=== PATIENT | female | born 1935 | race Two or more races ===

== ENCOUNTER 2019-05-29 03:21 | Inpatient (IN) | payer MEDICARE, OTHER ==
[~2019-05-29] VITALS: Ht 147.3 cm; Wt 58.5 kg
[2019-05-29 03:35] VITALS: BP 153/62
--- NOTE | 2019-05-29 03:35 | NUR ---
ED Nurse Note: Patient brought in by RA from [place] due to SOB x 30mins ago. Has history of CHF, ARF with hypoxia, Nstemi. Pt is on BIPAP.
[2019-05-29] MEDS ORDERED: Nitroglycerin Subl 0.4mg tab SL ONE (03:40)
--- NOTE | 2019-05-29 03:46 | NUR ---
ED Nurse Note: IV line established. Blood collected and sent to lab.
[2019-05-29] MEDS ORDERED: ACETAMINOPHEN325 M1 ORAL (03:56)
[2019-05-29] MEDS ORDERED: METOPROLOL SUCC25 MG ORAL (03:56)
[2019-05-29] MEDS ORDERED: CALAZIME (03:56)
[2019-05-29] MEDS ORDERED: BISACODYL10 M1 RC (03:56)
[2019-05-29] MEDS ORDERED: LISINOPRIL5 MG ORAL (03:56)
[2019-05-29] MEDS ORDERED: RENA-VITE RX T1 EAC1 PO (03:56)
[2019-05-29] MEDS ORDERED: AMIODARONE HCL100 MG ORAL (03:56)
[2019-05-29] MEDS ORDERED: ASPIRIN325 MG ORAL (03:56)
[2019-05-29] MEDS ORDERED: AMBIEN5 MG ORAL (03:56)
[2019-05-29] MEDS ORDERED: ZOFRAN ODT8 MG ORAL (03:56)
[2019-05-29] MEDS ORDERED: MINERAL OIL EN133 ML RC (03:56)
[2019-05-29] MEDS ORDERED: HUMALOG100 UNIT/1 SUBQ (03:56)
[2019-05-29] MEDS ORDERED: NEXIUM40 MG ORAL (03:56)
[2019-05-29] MEDS ORDERED: PLAVIX75 MG ORAL (03:56)
[2019-05-29] MEDS ORDERED: VITAMIN A AND113 GM TP (03:56)
[2019-05-29] MEDS ORDERED: MOM30 ML ORAL (03:56)
[2019-05-29] MEDS ORDERED: NITRO0.4 SL (03:56)
[2019-05-29] MEDS ORDERED: BETADINE3780 ML TP (03:56)
[2019-05-29 04:11] LABS: BASOPHILS % (AUTO) 1.5 % (0.0-2.0); EOSINOPHILS % (AUTO) 0.7 % (0.0-3.0); HEMATOCRIT 45.8 % (37.0-47.0); HEMOGLOBIN 14.4 G/DL (12.0-16.0); LYMPHOCYTES % (AUTO) 12.6 % (20.0-45.0); MEAN CORPUSCULAR VOLUME 98 FL (80-99); MONOCYTES % (AUTO) 9.3 % (1.0-10.0); NEUTROPHILS % (AUTO) 75.9 % (45.0-75.0); PLATELET COUNT 310 K/UL (150-450); RED BLOOD COUNT 4.69 M/UL (4.20-5.40); RED CELL DISTRIBUTION WIDTH 18.8 % (11.6-14.8); WHITE BLOOD COUNT 17.8 K/UL (4.8-10.8)
--- NOTE | 2019-05-29 04:35 | NUR ---
ED Nurse Note: Xray done at bedside.
[2019-05-29 04:44] LABS: ALANINE AMINOTRANSFERASE 14 U/L (12-78); ALBUMIN/GLOBULIN RATIO 0.6 (1.0-2.7); ALKALINE PHOSPHATASE 157 U/L (46-116); ANION GAP 13 mmol/L (5-15); ASPARTATE AMINO TRANSFERASE 104 U/L (15-37); BILIRUBIN,TOTAL 1.4 MG/DL (0.2-1.0); BLOOD UREA NITROGEN 20 mg/dL (7-18); CALCIUM 8.3 MG/DL (8.5-10.1); CARBON DIOXIDE 24 MMOL/L (21-32); CHLORIDE 102 MMOL/L (98-107); CKMB 0.7 NG/ML (0.0-3.6); CREATINE KINASE 223 U/L (26-308); CREATININE 2.2 MG/DL (0.55-1.30); PHOSPHORUS 3.2 MG/DL (2.5-4.9); SODIUM 139 MMOL/L (136-145)
--- NOTE | 2019-05-29 04:48 | Emergency Room Report ---
History of Present Illness General Chief Complaint: Dyspnea/Respdistress Source: Family Member, Medical Record Present Illness HPI Patient is a 83-year-old female presented after increased shortness of breath from nursing facility. Patient a prior history of end-stage renal disease she is normally dialyzed Tuesday. Patient was sent in from [facility]. She is noted to have severe difficulty breathing and was started on CPAP by EMS during transport. Patient was noted to be febrile. She had not been vomiting. Onset of symptoms approximate 1 hour prior to arrival.Patient reportedly was dialyzed on Tuesday.History limited by patient's acuity.Patient reportedly had a recent stent placement at [facility] as well as AICD placement approximately a week ago. Patient currently is on amiodarone. She had been on Plavix due to recent procedure Allergies: Coded Allergies: No Known Allergies (Unverified , 05/29/19) Patient History Past Medical History: see triage record Past Surgical History: pacemaker Reviewed Nursing Documentation: PMH: Agreed; PSxH: Agreed Nursing Documentation-PMH Past Medical History: No History, Except For Review of Systems All Other Systems: limited - by poor historian Physical Exam Vital Signs Date Time Temp Pulse Resp B/P (MAP) Pulse Ox O2 Delivery O2 Flow Rate FiO2 05/29/19 03:23 99.0 76 40 164/92 (116) 94 Bi-pap 05/29/19 03:59 60 Sp02 EP Interpretation: reviewed, normal General Appearance: normal inspection, alert, Chronically Ill Head: atraumatic ENT: normal ENT inspection, hearing grossly normal, normal voice Neck: normal inspection, supple, no bony tend, limited range of motion, other Respiratory: no retraction, respiratory distress, accessory muscle use, crackles Cardiovascular #1: regular rate, rhythm, JVD, other - dialysis access to left side of chest, edema Gastrointestinal: normal inspection, normal bowel sounds, non tender, soft, no guarding, no hernia Genitourinary: no CVA tenderness Musculoskeletal: normal inspection, back normal, normal range of motion Neurologic: normal inspection, alert, responsive, municipal court judge III-XII nml as tested, speech normal Psychiatric: normal inspection, judgement/insight normal, mood/affect normal Skin: normal color Medical Decision Making Diagnostic Impression: Primary Impression: Respiratory distress Additional Impressions: Pulmonary edema Bilateral pulmonary infiltrates on CXR AICD (automatic cardioverter/defibrillator) present CAD (coronary artery disease) ER Course Presented for shortness of breath. Differential included but was not limited to anemia, pneumonia, pneumothorax, myocardial infarction, pericardial effusion , congestive heart failure, acidosis. Because of complexity of patient's case laboratory tests and imaging studies were ordered. Patient had previous history of renal failure and is currently on dialysis. Patient was given IV antibiotics after blood cultures were obtained due to bilateral lung infiltrates these appear to be pulmonary edema. CXR 1 view interpreted by me showed normal cardiac size with bilateral basilar infiltrate. She was given IV antibiotics. IV fluids were not bolused due to fluid overload. Patient started on BiPAP. She was noted to have improvement in lactic acid and respiratory difficulty on reassessment. Dr. Ashley Watson was contacted for inpatient management due to covering physician for her care home. Labs Test 05/29/19 03:35 05/29/19 04:00 Arterial Blood pH 7.437 (7.350-7.450) Arterial Blood Partial Pressure CO2 33.9 mmHg (35.0-45.0) Arterial Blood Partial Pressure O2 72.3 mmHg (75.0-100.0) Arterial Blood HCO3 22.4 mmol/L (22.0-26.0) Arterial Blood Oxygen Saturation 94.4 % (95-100) Arterial Blood Base Excess -1.2 (-2-2) Peter Test Positive White Blood Count 17.8 K/UL (4.8-10.8) Red Blood Count 4.69 M/UL (4.20-5.40) Hemoglobin 14.4 G/DL (12.0-16.0) Hematocrit 45.8 % (37.0-47.0) Mean Corpuscular Volume 98 FL (80-99) Mean Corpuscular Hemoglobin 30.6 PG (27.0-31.0) Mean Corpuscular Hemoglobin Concent 31.4 G/DL (32.0-36.0) Red Cell Distribution Width 18.8 % (11.6-14.8) Platelet Count 310 K/UL (150-450) Mean Platelet Volume 6.1 FL (6.5-10.1) Neutrophils (%) (Auto) 75.9 % (45.0-75.0) Lymphocytes (%) (Auto) 12.6 % (20.0-45.0) Monocytes (%) (Auto) 9.3 % (1.0-10.0) Eosinophils (%) (Auto) 0.7 % (0.0-3.0) Basophils (%) (Auto) 1.5 % (0.0-2.0) Sodium Level 139 MMOL/L (136-145) Potassium Level 6.0 MMOL/L (3.5-5.1) Chloride Level 102 MMOL/L (98-107) Carbon Dioxide Level 24 MMOL/L (21-32) Anion Gap 13 mmol/L (5-15) Blood Urea Nitrogen 20 mg/dL (7-18) Creatinine 2.2 MG/DL (0.55-1.30) Estimat Glomerular Filtration Rate mL/min (>60) Glucose Level 190 MG/DL (74-106) Lactic Acid Level 4.10 mmol/L (0.4-2.0) Calcium Level 8.3 MG/DL (8.5-10.1) Phosphorus Level 3.2 MG/DL (2.5-4.9) Magnesium Level 2.3 MG/DL (1.8-2.4) Total Bilirubin 1.4 MG/DL (0.2-1.0) Direct Bilirubin 0.2 MG/DL (0.0-0.3) Aspartate Amino Transf (AST/SGOT) 104 U/L (15-37) Alanine Aminotransferase (ALT/SGPT) 14 U/L (12-78) Alkaline Phosphatase 157 U/L (46-116) Total Creatine Kinase 223 U/L (26-308) Creatine Kinase MB 0.7 NG/ML (0.0-3.6) Creatine Kinase MB Relative Index 0.3 Troponin I 0.006 ng/mL (0.000-0.056) Pro-B-Type Natriuretic Peptide > 44096 pg/mL (0-125) Total Protein 8.2 G/DL (6.4-8.2) Albumin 3.0 G/DL (3.4-5.0) Globulin 5.2 g/dL Albumin/Globulin Ratio 0.6 (1.0-2.7) EKG Diagnostic Results Rate: normal - 60 Rhythm: other - paced Rhythm Strip Diag. Results EP Interpretation: yes Rhythm: NSR, no PVC's, no ectopy Last Vital Signs Date Time Temp Pulse Resp B/P (MAP) Pulse Ox O2 Delivery O2 Flow Rate FiO2 05/29/19 03:59 94 18 97 Facial 60 05/29/19 03:35 99.0 153/62 Status: improved Disposition: ADMITTED INPATIENT Condition: Serious Referrals: NON PHYSICIAN (PCP) Landry Ayala MD May 29, 2019 04:48
[2019-05-29 04:57] LABS: BILIRUBIN,DIRECT 0.2 MG/DL (0.0-0.3)
[2019-05-29] MEDS ORDERED: Piperacillin/Tazobactam 3.375 GM in NS 110 ML IVPB ONE (05:00)
--- NOTE | 2019-05-29 05:30 | NUR ---
ED Nurse Note: Lactic reflex sent to lab.
[2019-05-29 06:11] VITALS: BP 127/87
--- NOTE | 2019-05-29 06:29 | NUR ---
NURSE NOTES: received report from Saida GLASS from ER. will wait for pt to come to SDU unit.
--- NOTE | 2019-05-29 06:29 | NUR ---
ED Nurse Note: Report given to Aleta GLASS.
--- NOTE | 2019-05-29 06:42 | NUR ---
TRANSFER TO FLOOR: Patient transferred to SDU as ordered, accompanied by 2 RNs. Report given to Aleta GLASS. Pt alert and oriented, verbally reponsive. No SOB at this time. Afebrile. IV line on left forearm 22g patent and intact. Belongings list done. Med recon done. Swabs are sent to lab. VSS. Family member aware of the transfer.
--- NOTE | 2019-05-29 06:43 | NUR ---
NURSE NOTES: received pt from Saida GLASS., pt is on Bipap 12/5 Fio2 50%. network technology instructor on, bed at the lowest position, alarmed, and locked. pt alert and oriented x3. follow command. ABD soft without distend. VS: HR 68 O2sat 100% Temperature 98.6 RR 27 BP 152/60. pt denies SOB, Bilateral heels noted DTI, Left lateral foot DTI noted, skin intact, multiple bruises noted. pacemaker on right upper chest noted, and perma cath on left upper chest intact and clean. IV peripheral on FA 22 G intact, clean, and patent. pt states no pain. call light within reach. will continue to monitor pt with plan of care.
--- NOTE | 2019-05-29 07:30 | NUR ---
NURSE NOTES: RECEIVED BED SIDE REPORT FROM ROSALINDA PERFECT BINDER SETTER OF NOC SHIFT .RECEIVED PT WITH HOB ELEVATED 45 DEGREE AWAKE AND ALERT NAURUAN SPEAKING ONLY ABLE TO FOLLOW SIMPLE COMMANDS.PT USING BIPAP 15/5 ,FIO2 @ 50%.FULL BODY ASSESSMENT DONE ,BILAT HEELS WITH DTI AND REDNESS ON SACRAL AREA.PT REPOSITIONED IN BED Q 2HRS TO PROVIDE COMFORT AND TO PREVENT FURTHER SKIN BRAKE DOWN.PLACED A TELEPHONE CALL TO DR CONROY ON HIS EMERGENCY VOICE MAIL AND LEFT A MESSAGE REGARDING NEW PT AND WE NEED ADMISSION ORDERS.WILL CONT TO MONITOR.
--- NOTE | 2019-05-29 07:53 | NUR ---
HAND-OFF: Report given to Jose RN to get admission orders.
[2019-05-29 08:00] VITALS: BP 145/65
[2019-05-29] MEDS ORDERED: Zolpidem 5mg tab ORAL PRN (09:15)
[2019-05-29] MEDS ORDERED: Milk of Magnesia 30ml Ud ORAL PRN (09:15)
[2019-05-29] MEDS ORDERED: Nitroglycerin Subl 0.4mg tab SL PRN (09:15)
[2019-05-29] MEDS ORDERED: Ondansetron ODT 8mg tab ORAL PRN (09:15)
[2019-05-29] MEDS ORDERED: Lisinopril 2.5mg tab ORAL SCH (09:15)
[2019-05-29] MEDS ORDERED: Fleet's Mineral Oil Enema RECTAL PRN (09:15)
--- NOTE | 2019-05-29 10:10 | NUR ---
*-* NO ISNURANCE INFORMATION IN THE BAR UNABLE TO SEND CLINICALS OR REVIEWS *-*
[2019-05-29] MEDS ORDERED: Vancomycin 1 GM in NS 275 ML IVPB SCH (10:30)
[2019-05-29] MEDS ORDERED: Vitamin B Complex Tab ORAL ONE (10:30)
[2019-05-29] MEDS: Metoprolol Succinate XL 25mg tab ORAL SCH (11:08)
[2019-05-29] MEDS: Amiodarone 200mg tab ORAL SCH ×2 (11:08→18:28)
--- NOTE | 2019-05-29 11:11 | NUR ---
*-* INSURANCE *-* ALL AVAILABLE CLINICALS HAVE BEEN FAXED TO [facility] F: [phone]
[2019-05-29] MEDS: NovoLOG Insulin Flexpen SUBQ SCH ×3 (11:30→21:00)
[2019-05-29] MEDS: Betadine 4oz Bottle TOPIC SCH (11:32)
[2019-05-29] MEDS: Vitamin A&D Oint Tube TOPIC SCH (11:32)
--- NOTE | 2019-05-29 11:37 | Cardiac Electrophysiology PN ---
Subjective Subjective [id number] Objective Last 24 Hour Vital Signs Date Time Temp Pulse Resp B/P (MAP) Pulse Ox O2 Delivery O2 Flow Rate FiO2 05/29/19 11:08 60 145/65 05/29/19 11:07 145/65 05/29/19 11:00 60 21 99 Facial 30 05/29/19 09:03 60 18 99 Facial 40 05/29/19 08:00 97.9 132 33 145/65 (91) 100 05/29/19 08:00 60 05/29/19 07:20 68 18 98 Facial 50 05/29/19 06:30 98.7 78 19 127/87 99 50 05/29/19 06:11 98.7 78 19 127/87 99 50 05/29/19 04:47 88 21 99 Facial 50 05/29/19 03:59 94 29 97 Facial 60 05/29/19 03:35 99.0 60 34 153/62 100 Bi-pap 05/29/19 03:35 76 40 Bi-pap 05/29/19 03:23 99.0 76 40 164/92 (116) 94 Bi-pap Intake and Output 05/28/19 05/29/19 19:00 07:00 Intake Total 110 ml Balance 110 ml Intake IV Total 110 ml # Voids 1 Laboratory Tests Test 05/29/19 03:35 05/29/19 04:00 05/29/19 05:10 Arterial Blood pH 7.437 (7.350-7.450) Arterial Blood Partial Pressure CO2 33.9 mmHg (35.0-45.0) L Arterial Blood Partial Pressure O2 72.3 mmHg (75.0-100.0) L Arterial Blood HCO3 22.4 mmol/L (22.0-26.0) Arterial Blood Oxygen Saturation 94.4 % (95-100) L Arterial Blood Base Excess -1.2 (-2-2) Peter Test Positive White Blood Count 17.8 K/UL (4.8-10.8) H Red Blood Count 4.69 M/UL (4.20-5.40) Hemoglobin 14.4 G/DL (12.0-16.0) Hematocrit 45.8 % (37.0-47.0) Mean Corpuscular Volume 98 FL (80-99) Mean Corpuscular Hemoglobin 30.6 PG (27.0-31.0) Mean Corpuscular Hemoglobin Concent 31.4 G/DL (32.0-36.0) L Red Cell Distribution Width 18.8 % (11.6-14.8) H Platelet Count 310 K/UL (150-450) Mean Platelet Volume 6.1 FL (6.5-10.1) L Neutrophils (%) (Auto) 75.9 % (45.0-75.0) H Lymphocytes (%) (Auto) 12.6 % (20.0-45.0) L Monocytes (%) (Auto) 9.3 % (1.0-10.0) Eosinophils (%) (Auto) 0.7 % (0.0-3.0) Basophils (%) (Auto) 1.5 % (0.0-2.0) Sodium Level 139 MMOL/L (136-145) Potassium Level 6.0 MMOL/L (3.5-5.1) *H Chloride Level 102 MMOL/L (98-107) Carbon Dioxide Level 24 MMOL/L (21-32) Anion Gap 13 mmol/L (5-15) Blood Urea Nitrogen 20 mg/dL (7-18) H Creatinine 2.2 MG/DL (0.55-1.30) H Estimat Glomerular Filtration Rate mL/min (>60) Glucose Level 190 MG/DL (74-106) H Lactic Acid Level 4.10 mmol/L (0.4-2.0) H 2.30 mmol/L (0.66-2.22) H Calcium Level 8.3 MG/DL (8.5-10.1) L Phosphorus Level 3.2 MG/DL (2.5-4.9) Magnesium Level 2.3 MG/DL (1.8-2.4) Total Bilirubin 1.4 MG/DL (0.2-1.0) H Direct Bilirubin 0.2 MG/DL (0.0-0.3) Aspartate Amino Transf (AST/SGOT) 104 U/L (15-37) H Alanine Aminotransferase (ALT/SGPT) 14 U/L (12-78) Alkaline Phosphatase 157 U/L (46-116) H Total Creatine Kinase 223 U/L (26-308) Creatine Kinase MB 0.7 NG/ML (0.0-3.6) Creatine Kinase MB Relative Index 0.3 Troponin I 0.006 ng/mL (0.000-0.056) Pro-B-Type Natriuretic Peptide > 38598 pg/mL (0-125) H Total Protein 8.2 G/DL (6.4-8.2) Albumin 3.0 G/DL (3.4-5.0) L Globulin 5.2 g/dL Albumin/Globulin Ratio 0.6 (1.0-2.7) L Microbiology Date/Time Source Procedure Growth Status 05/29/19 04:13 Rectum Received Prosper Rao MD May 29, 2019 11:37
--- NOTE | 2019-05-29 11:45 | NUR ---
NURSE NOTES: REQUEST FOR MEDICAL RECORDS FAXED TO [facility]. AWAITING FOR CALL BACK.
[2019-05-29 12:00] VITALS: BP 129/64
--- NOTE | 2019-05-29 12:34 | NUR ---
RADIOLOGY DEPT., CHEST X-RAY DONE.-P.DYE
--- NOTE | 2019-05-29 13:37 | Consultation ---
Consult Note Consult Note asked to eval for dialysis management Patient is a 83-year-old female presented after increased shortness of breath from nursing facility. Patient a prior history of end-stage renal disease she is normally dialyzed Tuesday. Patient was sent in from [facility]. She is noted to have severe difficulty breathing and was started on CPAP by EMS during transport. Patient was noted to be febrile. She had not been vomiting. Onset of symptoms approximate 1 hour prior to arrival.Patient reportedly was dialyzed on Tuesday.History limited by patient's acuity.Patient reportedly had a recent stent placement at [facility] as well as AICD placement approximately a week ago. Patient currently is on amiodarone. She had been on Plavix due to recent procedure Allergies: Coded Allergies: No Known Allergies (Unverified , 05/29/19) on bipap now exam: left permacath right AICD . Assessment/Plan Sepsis ESRD Urine outlet obst, Urinary retention CHF 2D echo ortiz urine studies optimize cardiac and pulmonary status Josep Rosales MD May 29, 2019 13:37
--- NOTE | 2019-05-29 14:00 | NUR ---
NURSE NOTES: PERFORMED BLADDER SCAN RESIDUAL 382ML ,INSERT F/C NEPALESE #16 PER M.D ORDERS. PLACED A TELEPHONE CALL TO DR SCHRADER OFFICES AND MADE AWARE & NOTIFIED REGARDING PT IS HAS URINARY RETENTION 382ML AND F/C NEPALESE #16 INSERTED ,ALSO k+ LEVEL 6.0. M.D STATING THAT IS AWAITING FOR THIS P.M LAB,S.NO H.D ORDERS AT THIS TIME. WILL CONT TO MONITOR.
--- NOTE | 2019-05-29 14:01 | Diagnostic Imaging Report ---
Indication: Abnormal renal function tests. Abnormal liver function tests. Leukocytosis Technique: Augustine-scale and duplex images of the upper abdomen were obtained Comparison: none Findings: Gallbladder demonstrates sludge. No stones. No wall thickening or pericholecystic fluid Sonographic Friedman's sign is negative. Common bile duct measures 3 mm in diameter. No intrahepatic biliary ductal dilatation. Liver demonstrates normal echogenicity, no focal abnormality. Portal vein and hepatic veins are patent. Pancreas is obscured by bowel gas. Spleen is unremarkable. Left kidney measures 5.2 cm in length. Right kidney measures 5.8 cm length. Both kidneys are poorly visualized, demonstrate increased echogenicity. There is no hydronephrosis. No focal abnormality . Non-aneurysmal abdominal aorta . Impression: Gallbladder sludge. Negative for gallstones or dilated ducts. Bilateral atrophic echogenic kidneys, consistent with medical renal disease Note suboptimal visualization of the pancreas
[2019-05-29] MEDS: HydrALAZINE 10mg Tab ORAL SCH ×2 (14:32→18:28)
[2019-05-29 15:13] LABS: APPEARANCE,URINE SLIGHTLY CLOUDY; BILIRUBIN, URINE NEGATIVE (NEGATIVE); COLOR,URINE AMBER; GLUCOSE, URINE (UA) NEGATIVE (NEGATIVE); KETONES,URINE NEGATIVE (NEGATIVE); LEUKOCYTE ESTERASE ,URINE NEGATIVE (NEGATIVE); NITRITE,URINE NEGATIVE (NEGATIVE); PH,URINE 8 (4.5-8.0); PROTEIN,URINE 2+ (NEGATIVE); UROBILINOGEN,URINE 4 MG/DL (0.0-1.0)
--- NOTE | 2019-05-29 15:34 | Diagnostic Imaging Report ---
Indication: Shortness of breath Technique: One view of the chest Comparison: 8 hours earlier Findings: Again demonstrated is bilateral interstitial and airspace disease, predominantly perihilar, amount similar to the prior study. The hemidiaphragms are better delineated, may reflect decreased pleural fluid versus differences in projection. Right chest AICD, left chest tunneled dialysis catheter are again demonstrated. Impression: Possibly decreased pleural effusions versus different imaging projection, since prior exam of 8 hours earlier Otherwise little change, with bilateral interstitial and airspace edema
--- NOTE | 2019-05-29 15:45 | Consultation ---
DATE OF CONSULTATION: 05/29/2019 GASTROENTEROLOGY CONSULTATION CONSULTING PHYSICIAN: Susan Malone M.D. CHIEF COMPLAINT: I was asked to see this patient by Dr. Ashley Jones today for evaluation of abnormal liver tests. HISTORY OF PRESENT ILLNESS: The patient is an 83-year-old woman, who was brought in to the hospital from a senior care for acute shortness of breath, which only started about an hour before admission. The patient does not offer much other history. During admission process, she was noted to have abnormal liver tests and therefore this consultation was generated. The patient denies any previous history of liver disease or alcohol use. She also denies abdominal pain, nausea, vomiting, or diarrhea. She recently had some cardiac workup including an apparent cardiac stent placement as well as AICD placement at [facility] about a week ago. PAST MEDICAL HISTORY: History of arrhythmia, status post AICD placement; coronary artery disease, status post stent placement; chronic renal failure, on dialysis; diabetes; hypertension. FAMILY HISTORY: Noncontributory. SOCIAL HISTORY: The patient denies any alcohol use or smoking. REVIEW OF SYSTEMS: Otherwise negative. MEDICATIONS: As an outpatient include Tylenol, amiodarone, aspirin, bisacodyl, Plavix, omeprazole, insulin, lisinopril, metoprolol, mineral oil, ondansetron, vitamins, and Ambien. PHYSICAL EXAMINATION: GENERAL: Elderly woman, seen in her room. HEENT: Normocephalic, atraumatic. Sclerae anicteric. BiPAP mask was on. NECK: Supple. CHEST: Revealed coarse rhonchi. CARDIOVASCULAR: Revealed a regular rate. ABDOMEN: Soft, flat with good bowel sounds. There is no organomegaly or tenderness. EXTREMITIES: Revealed no edema. LABORATORY DATA: Noted. ASSESSMENT: The patient presents with primary respiratory syndrome and a recent cardiac disorder and is being treated for her respiratory illness. Her liver test abnormalities were of unclear origin, but she clearly needs evaluation with imaging studies and hepatitis panel to workup the cause of the abnormalities. If she any significant cardiac disorder, then some of the abnormalities may actually be related to hepatic congestion. She also has a history of diabetes and therefore fatty liver disease will be another consideration. Viral hepatitis also have to be ruled out. RECOMMENDATIONS: 1. Check abdominal ultrasound. 2. Check hepatitis serologies. 3. Follow liver tests. 4. Oral diet once stable from a pulmonary standpoint. 5. Further recommendations to follow. Thank you for asking me to participate in the care of this patient. Susan Malone M.D. DR: BENJIE JOB#: [id number] CC:
--- NOTE | 2019-05-29 16:17 | Diagnostic Imaging Report ---
Indication: Shortness of breath Technique: One view of the chest Comparison: none Findings: There is a left chest tunneled dialysis catheter and a right chest pacemaker. There is bilateral interstitial and airspace disease. Both hemidiaphragms are obscured, suggesting bilateral pleural effusions. The heart is borderline enlarged. Impression: Are mainly Bilateral interstitial and airspace infiltrates versus edema Suspect bilateral pleural effusion
--- NOTE | 2019-05-29 17:27 | Cardiology Report ---
APPROVED REPORT EXAM: Two-dimensional and M-mode echocardiogram with Doppler and color Doppler. INDICATION Congestive Heart Failure M-Mode DIMENSIONS IVSd0.9 (0.7-1.1cm)Left Atrium (MM)3.8 (1.6-4.0cm) LVDd5.5 (3.5-5.6cm)Aortic Root2.5 (2.0-3.7cm) PWd0.8 (0.7-1.1cm)Aortic Cusp Exc.1.7 (1.5-2.0cm) LVDs4.4 (2.5-4.0cm) PWs1.2 cm Normal left ventricular chamber size. Akinetic and thinned mid to distal septum and apex and distal lateral wall and distal posterior and inferior gallardo Left ventricular ejection fraction estimated to be 30-35 %. No evidence of left ventricular hypertrophy. Anterior Echo-free space, may be due to pericardial fat or effusion. All other cardiac chamber sizes are within normal limits. Focal aortic valve sclerosis with adequate cusp excursion. Thickened mitral valve leaflets with normal excursion. Mitral annulus and aortic root calcification. Pulmonic valve not well visualized. Normal tricuspid valve structure. IVC at normal size with physiologic collapse. Pacemaker wire present in the right side chambers. A color flow and spectral Doppler study was performed and revealed: Mild aortic regurgitation.AV peak gradient of 14 mmhg Mild mitral regurgitation. Mitral diastolic velocities suggest reduced left ventricular relaxation c/w mild LV diastolic dysfunction (Grade I ). Mild tricuspid regurgitation. Tricuspid systolic velocities suggests peak right ventricular systolic pressure of 38 mmHg consistent with mild pulmonary hypertension.
[2019-05-29 17:46] LABS: ANION GAP 15 mmol/L (5-15); BLOOD UREA NITROGEN 25 mg/dL (7-18); CALCIUM 7.6 MG/DL (8.5-10.1); CARBON DIOXIDE 23 MMOL/L (21-32); CHLORIDE 107 MMOL/L (98-107); CREATININE 2.5 MG/DL (0.55-1.30); POTASSIUM 4.2 MMOL/L (3.5-5.1); SODIUM 145 MMOL/L (136-145)
--- NOTE | 2019-05-29 17:48 | Cardiology Report ---
APPROVED REPORT EKG Measurement Heart [id number] Left bundle branch block Abnormal ECG ATRIAL PACED VENTRICULAR SENSED
[2019-05-29 17:51] LABS: ALANINE AMINOTRANSFERASE 11 U/L (12-78); ALBUMIN 2.6 G/DL (3.4-5.0); ALBUMIN/GLOBULIN RATIO 0.7 (1.0-2.7); ALKALINE PHOSPHATASE 117 U/L (46-116); ASPARTATE AMINO TRANSFERASE 27 U/L (15-37)
--- NOTE | 2019-05-29 18:00 | Consultation ---
DATE OF CONSULTATION: 05/29/2019 CARDIOLOGY CONSULTATION CONSULTING PHYSICIAN: Prosper Rao M.D. REFERRING PHYSICIAN: Ashley Jones M.D. REASON FOR CONSULTATION: Management of congestive heart failure and evaluation of the patient's defibrillator. HISTORY OF PRESENT ILLNESS: The patient is an 83-year-old lady with history of hypertension, congestive heart failure, end-stage renal disease, on hemodialysis on Tuesday, Tuesday, and Tuesday via a left Frankie catheter. The patient apparently was at [facility] and underwent a defibrillator implantation on the right chest. The patient was sent from [facility] for increasing shortness of breath. The patient was started on CPAP by the paramedics during transfer. The patient was noted to be also febrile. The patient apparently also had a recent stent placement at [facility] as well and was started on amiodarone. The patient is also on Plavix. A cardiac electrophysiology consultation was obtained for further evaluation and management. REVIEW OF SYSTEMS: Review of systems was negative other than what was mentioned in the history of present illness. PAST MEDICAL HISTORY: As mentioned above. FAMILY HISTORY: Noncontributory. SOCIAL HISTORY: She lives in [place]. Does not smoke or drink alcohol. PHYSICAL EXAMINATION: VITAL SIGNS: Blood pressure 144/65, pulse 60, respirations 18, and temperature 97.9. HEAD AND NECK: Shows positive JVD. LUNGS: Decreased breath sounds. CARDIOVASCULAR: Shows regular S1 and S2 with no gallop. Defibrillator is in the right subclavian and incision is intact. The Frankie catheter is in the left subclavian. ABDOMEN: Soft. EXTREMITIES: No pitting edema. LABORATORY AND DIAGNOSTIC DATA: Her EKG showed atrially paced, but ventricularly sensed with left bundle-branch block. Labs show white count of 17.8, hemoglobin of 14.4, hematocrit of 45.8, and platelet count of 210,000. Sodium 139, potassium 6.0, BUN of 20, creatinine of 2.2, and glucose of 190. Lactic acid is 4.1 and 2.3. BNP is more than 35,000. Troponin is negative. ASSESSMENT AND PLAN: 1. Status post defibrillator implantation at [facility]. We will try to find out the indication for defibrillator. We will get a chest x-ray and we will try to find the brand of the defibrillator. We will try to contact [facility] for discharge summary and operative report. The incision is intact however. 2. Coronary artery disease with history of prior stent placement recently. The patient is on aspirin, Plavix, and Toprol-XL 25 mg daily. 3. History of ischemic cardiomyopathy. The patient is on lisinopril 20 mg daily and metoprolol as well as hemodialysis. 4. End-stage renal disease, on hemodialysis. 5. Fever and sepsis. The patient is on vancomycin and Zosyn. The incision currently is intact. We will get an echocardiogram for inspection in view of the patient's recent device implantation to make sure there is no device related infection as white count is 17.8 and the patient has lactic acidosis. 6. Congestive heart failure with BNP of more than 35,000, on hemodialysis. Thank you very much for allowing me to participate in the care of this patient. Please do not hesitate to contact me for any questions regarding my evaluation. Prosper Rao M.D. DR: ABHIJEET JOB#: [id number] CC:
[2019-05-29] MEDS: Piperacillin/Tazobactam 3.375 GM in NS 110 ML IVPB SCH (18:18)
[2019-05-29] MEDS: Docusate 100mg cap ORAL SCH (18:28)
--- NOTE | 2019-05-29 19:00 | Consultation ---
DATE OF CONSULTATION: 05/29/2019 PULMONARY CONSULTATION CONSULTING PHYSICIAN: Bharat Nettles M.D. REFERRING PHYSICIAN: REASON FOR CONSULTATION: Respiratory failure. HISTORY OF PRESENT ILLNESS: The patient is an 83-year-old female presented with worsening shortness of breath from the retirement facility. The patient with end-stage renal disease on hemodialysis. The patient is noted to have worsening difficulty in breathing, was started on CPAP/BiPAP. The patient also noted to be febrile, had been vomiting. The patient was brought in for further evaluation with evidence of respiratory distress. The patient noted to have recent AICD placed one week prior. The patient is on anticoagulation. Care discussed and reviewed. The patient is admitted to the [facility] and presently with adequate acid-base exchange. The patient currently has a facial mass. The patient is noted to be hypoxemic, unable to give any history at the present time. The history is obtained from chart review, fpc notes, and ER notes. The patient's x-ray with bilateral infiltrates as well per review. PAST MEDICAL HISTORY: Notable for end-stage renal disease, on hemodialysis; coronary artery disease; AICD; cardiomyopathy, CAD, diabetes, hypertension, and dementia. MEDICATIONS: Reviewed. ALLERGIES: Reviewed. SOCIAL HISTORY: The patient is a fpc patient, currently mostly bedbound. Nonsmoker. Nondrinker. REVIEW OF SYSTEMS: Unobtainable due to the patient's present state. PHYSICAL EXAMINATION: GENERAL: The patient is a well-developed female, chronically ill, advanced age. VITAL SIGNS: Blood pressure 127/87, pulse 78, and respirations 19, sats 99% on 50%, and temperature 98.7. HEENT: Negative. The patient's extraocular movements are grossly intact. NECK: Supple. No adenopathy. LUNGS: With crackles at both bases and scattered anterior rhonchi. CARDIAC: S1, S2. Regular rate and rhythm. Soft systolic murmur. No murmur, rubs, or gallops. ABDOMEN: Soft, nontender, and nondistended. EXTREMITIES: No cyanosis or clubbing. NEUROLOGIC: Grossly nonfocal. The patient is alert, but confused. SKIN: Noted and reviewed. LABORATORY DATA: Reviewed. White count 17.8, hematocrit 45, and platelets 310,000. Arterial blood gases, 7.43 with PH Chemistries noted, potassium 6, BUN 20, creatinine 2.2. Albumin is 3.0. BNP is significantly elevated at greater than 35,000. X-ray with bilateral infiltrates. IMPRESSION: Possible pneumonia versus fluid overload with cardiomyopathy, AICD, CAD, leukocytosis, possible sepsis, lactic acidemia, evidence of hypoxemia, hypertension and diabetes per history. RECOMMENDATIONS: Supportive care, empiric antibiotics and follow clinically, respiratory care and monitor for further changes. Hemodialysis with ultrafiltration. Monitor vital signs and hemodynamics. BiPAP p.r.n . Monitor arterial blood gas for further changes. DVT prophylaxis if no bleeding risk at present. Platelet count is adequate and within normal. Bharat Nettles M.D. DR: RENETTA JOB#: [id number] CC: BRENNA
--- NOTE | 2019-05-29 19:00 | Consultation ---
DATE OF CONSULTATION: 05/29/2019 INFECTIOUS DISEASES CONSULTATION CONSULTING PHYSICIAN: William Dailey M.D. PRIMARY ATTENDING PHYSICIAN: Ashley Jones M.D. REASON FOR CONSULTATION: Sepsis, systemic inflammatory response syndrome. HISTORY OF PRESENT ILLNESS: The patient is an 83-year-old female admitted today from the nursing facility because of shortness of breath. She was breathing fast with respiratory rate of 40, had leukocytosis of 17,000 in ER and blood gas shows hypoxemia. Also, lactic acid is elevated and has hyperkalemia. PAST MEDICAL HISTORY: Recent history of discharge from [facility] after AICD, end-stage renal disease on hemodialysis, diabetes mellitus type 2, hypertension, congestive heart failure, oxygen dependent, right heel pressure ulcer, deep tissue injury. ALLERGIES: No known drug allergies. MEDICATIONS: Getting Zosyn, insulin, vitamin A and D, Protonix, Tylenol, amiodarone, aspirin, Bisacodyl, Plavix, lisinopril, magnesium hydroxide, metoprolol, mineral oil enema, nitroglycerin. SOCIAL HISTORY: She is , has 11 children. Used to be a smoker until 1998. Currently lives in half-way facility. REVIEW OF SYSTEMS: No fever. No chills. She has occasional cough. No chest pain. No nausea. No vomiting. No diarrhea. She has pain in legs. PHYSICAL EXAMINATION: VITAL SIGNS: Temperature 98.6, pulse 60, blood pressure 129/64. GENERAL APPEARANCE: Awake, responsive. HEAD AND NECK: Getting oxygen by nasal cannula. Dry mouth. HEART: AICD in the right side of the chest. Has a PermCath in the left side. LUNGS: Clear. ABDOMEN: Soft and nontender. EXTREMITIES: She has no edema. She has muscle atrophy. NEUROLOGIC: Awake, alert, responsive. LABORATORY AND DIAGNOSTIC DATA: , pCO2 32.9, O2 saturation 94.4. Sodium 139, potassium 6, chloride 102, bicarb 24, BUN 20, creatinine 2.8, glucose 119. Lactic acidosis first sample was 4.1, the latest sample is 2.3. Bilirubin 1.4, alkaline phosphatase is 157. BNP is elevated at 35,000. WBC 17.8, hemoglobin 14.4, hematocrit 45.8, and platelets is 310. Chest x-ray shows congestion. Other labs are pending. IMPRESSION: 1. Sepsis or systemic inflammatory response syndrome. 2. Tachypnea and leukocytosis. 3. Hypoxemic respiratory failure. 4. Hyperkalemia. 5. Lactic acidosis. 6. End-stage renal disease on hemodialysis. 7. Diabetes mellitus type 2. 8. Congestive heart failure. 9. Hypertension. 10. Hyperlipidemia. RECOMMENDATION: We will continue with Zosyn and vancomycin. We will follow up the cultures. At the end of my exam, I thank Dr. Jones, for involving me in the care of this patient. William Dailey M.D. DR: Annalee JOB#: [id number] CC: BRENNA
--- NOTE | 2019-05-29 19:10 | NUR ---
HAND-OFF: Report given to .[facility].
--- NOTE | 2019-05-29 19:41 | NUR ---
NURSE NOTES: left message for Dr. Jones regarding diet order. awaiting call back.
--- NOTE | 2019-05-29 19:52 | NUR ---
NURSE NOTES: Received patient from QUAN Garcia. patient is observed in bed, eyes open, able to respond to verbal commands, Yi speaking, denies pain at this time. family is at bedside. patient is on 3 L O2 via NC, tolerating well, no s/sx of respiratory distress noted at this time. F/C is patent and intact, draining rajendra urine. skin alterations noted. LFA 22 g IV site is patent and intact, currently running zosyn at prescribed rate. bed in lowest position and locked, siderails up X3, call light within reach. will continue to monitor.
[2019-05-29 20:00] VITALS: BP 152/64
--- NOTE | 2019-05-29 20:00 | NUR ---
NURSE NOTES: received call back from Dr. Jones. will carry out orders per MD.
--- NOTE | 2019-05-29 22:30 | History and Physical Report ---
DATE OF ADMISSION: 05/29/2019 HISTORY OF PRESENT ILLNESS: The patient was admitted for respiratory insufficiency on BiPAP, end-stage renal disease, shortness of breath for hours, CAD status post stent, AICD placement recently, and also admitted for leukocytosis and hyperkalemia. Chest x-ray showed bilateral edema. The patient was admitted for pulmonary edema. The patient comes from a half-way facility. He was started on CPAP by the EMS. The patient is relatively very poor historian, cannot get further history from the patient that was reliable. PAST MEDICAL HISTORY: Significant for hypertension, NIDDM, constipation, arrhythmia. PAST SURGICAL HISTORY: Pacemaker. MEDICATIONS: Bisacodyl, Plavix, Nexium, insulin, lisinopril, metoprolol. ALLERGIES: No known allergies. SOCIAL HISTORY: No history of alcohol or illicit drugs. FAMILY HISTORY: Noncontributory. REVIEW OF SYSTEMS: HEENT: Denies headaches. RESPIRATORY: Reports shortness of breath. Denies cough. CARDIOVASCULAR: Denies chest pain. Denies orthopnea. GASTROINTESTINAL: Denies nausea, vomiting, diarrhea. EXTREMITIES: Chronic pain syndrome. PHYSICAL EXAMINATION: VITAL SIGNS: Temperature 98.6, pulse 60, blood pressure 129/64. HEENT: PERRLA. NECK: Supple. No lymphadenopathy. CHEST: Bibasilar rales. CARDIOVASCULAR: Regular rate. GASTROINTESTINAL: Soft. Positive bowel sounds. No organomegaly. EXTREMITIES: A 1+ edema. He is able to moves all four extremities. Reflexes are equal on both sides. LABORATORY AND DIAGNOSTIC DATA: WBC of 17.8, hemoglobin 14.4, platelets 310. Sodium 139, potassium 6, BUN of 20, creatinine 3.2, glucose 190, AST of 104, ALT 14, total bilirubin 1.4. ASSESSMENT AND PLAN: 1. Hyperkalemia. 2. Leukocytosis. 3. Recent pacemaker, . 4. 5. Elevated lactic Acid. 6. Azotemia. I have asked to follow up with Dr. Rosales, Dr. Malone, Dr. Rao, Dr. William Dailey to see the patient for the above-mentioned diagnoses and treatment. Ashley Jones M.D. DR: Rony JOB#: [id number] CC:
[2019-05-30] VITALS: BP 149/64
[2019-05-30] MEDS: HydrALAZINE 10mg Tab ORAL SCH ×4 (00:23→17:55)
[2019-05-30 04:00] VITALS: BP 125/68
[2019-05-30 04:28] LABS: BASOPHILS % (AUTO) 1.8 % (0.0-2.0); EOSINOPHILS % (AUTO) 2.5 % (0.0-3.0); HEMATOCRIT 33.7 % (37.0-47.0); HEMOGLOBIN 10.7 G/DL (12.0-16.0); LYMPHOCYTES % (AUTO) 22.4 % (20.0-45.0); MEAN CORPUSCULAR VOLUME 97 FL (80-99); MONOCYTES % (AUTO) 12.1 % (1.0-10.0); NEUTROPHILS % (AUTO) 61.1 % (45.0-75.0); PLATELET COUNT 220 K/UL (150-450); RED BLOOD COUNT 3.48 M/UL (4.20-5.40); RED CELL DISTRIBUTION WIDTH 18.6 % (11.6-14.8); WHITE BLOOD COUNT 7.2 K/UL (4.8-10.8)
[2019-05-30 04:39] LABS: AMMONIA 33 umol/L (11-32)
[2019-05-30 04:46] LABS: GAMMA GLUTAMYL TRANSPEPTIDASE 16 U/L (5-85); PHOSPHORUS 2.7 MG/DL (2.5-4.9)
[2019-05-30 04:47] LABS: CHOLESTEROL 98 MG/DL (< 200); HDL CHOLESTEROL 33 MG/DL (40-60); TRIGLYCERIDES 103 MG/DL (30-150)
[2019-05-30 04:53] LABS: IRON 40 ug/dL (50-175); TOTAL IRON BINDING CAPACITY 88 ug/dL (250-450)
[2019-05-30 05:03] LABS: % IRON SATURATION 45 % (15-50); ALANINE AMINOTRANSFERASE 9 U/L (12-78); ALBUMIN 2.4 G/DL (3.4-5.0); ALBUMIN/GLOBULIN RATIO 0.6 (1.0-2.7); ALKALINE PHOSPHATASE 109 U/L (46-116); ANION GAP 14 mmol/L (5-15); ASPARTATE AMINO TRANSFERASE 19 U/L (15-37); BILIRUBIN,TOTAL 0.8 MG/DL (0.2-1.0); BLOOD UREA NITROGEN 25 mg/dL (7-18); CALCIUM 7.3 MG/DL (8.5-10.1); CARBON DIOXIDE 23 MMOL/L (21-32); CHLORIDE 107 MMOL/L (98-107); CREATININE 2.8 MG/DL (0.55-1.30); FERRITIN 1035 NG/ML (8-388); POTASSIUM 3.6 MMOL/L (3.5-5.1); SODIUM 143 MMOL/L (136-145)
[2019-05-30] MEDS: Piperacillin/Tazobactam 3.375 GM in NS 110 ML IVPB SCH (05:16)
[2019-05-30] MEDS: NovoLOG Insulin Flexpen SUBQ SCH ×4 (06:30→21:10)
--- NOTE | 2019-05-30 07:20 | NUR ---
NURSE NOTES: RECEIVED BED SIDE REPORT FROM [facility] MOB[facility] SPECIALIST OF [facility]. RECEIVED PT WITH HOB 45DEGREE AWAKE AND ALERT LAO SPEAKING ONLY .PT ABLE TO FALLOW SIMPLE COMMANDS AND ABLE TO MAKE NEEDS KNOWS.PT DENIES CP OR SOB AT THIS TIME.PT USING O2 @ 3L/MITS VIA N/C O2 SAT 96%.FULL BODY ASSESSMENT DONE.PT DAUGHTER AT BED SIDE AT ALL THE TIMES. PT HAD LG BM, BROWNISH COLOR .RENDERED TOTAL AM NSG CARE.PT KEEP CLEAN AND DRY POSSIBLE AND REPOSITIONED IN BED TO PROVIDE COMFORT AND TO PREVENT FURTHERS SKIN BRAKE REPORT. DR SCHRADER CAME TO SEE THE PT ,NO ORDERS FOR H.D NOTED AT THIS TIME. WILL CONT TO MONITOR.
--- NOTE | 2019-05-30 07:48 | NUR ---
HAND-OFF: Report given to QUAN Garcia. patient is in stable condition. endorsed plan of care.
[2019-05-30 08:00] VITALS: BP 137/70
[2019-05-30] MEDS ORDERED: Vancomycin 750mg/NS 275ml IVPB ONE ×2 (09:00)
--- NOTE | 2019-05-30 09:04 | Pulmonology Progress Note ---
Assessment/Plan Assessment/Plan Pulmonary Progress Note HPI: The patient is an 83-year-old female with CKD on HD admitted volume overloaded with [facility] Initially required CPAP/BiPAP. The patient also noted to be febrile, and started of broad spectrum AB per ID. The patient noted to have recent AICD placed one week prior. The patient is on anticoagulation. Care discussed and reviewed. The patient is admitted to the [facility] and presently with adequate acid-base exchange. The patient currently has a facial mass. PAST MEDICAL HISTORY: Notable for end-stage renal disease, on hemodialysis; coronary artery disease; AICD; cardiomyopathy, CAD, diabetes, hypertension, and dementia. PHYSICAL EXAMINATION: GENERAL: The patient is a well-developed female, chronically ill, advanced age. VITAL SIGNS NOTED: HEENT: Negative. The patient's extraocular movements are grossly intact. NECK: Supple. No adenopathy. LUNGS: CTAB CARDIAC: S1, S2. Regular rate and rhythm. Soft systolic murmur. No murmur, rubs, or gallops. ABDOMEN: Soft, nontender, and nondistended. EXTREMITIES: No cyanosis or clubbing. NEUROLOGIC: Grossly nonfocal. The patient is alert, but confused. SKIN: Noted and reviewed. LABORATORY DATA NOTED: X-ray with interstitial infiltrates cw congestiona, pleural effusions. IMPRESSION: CKD, fluid overload improving, possible pneumonia, cardiomyopathy, AICD, CAD, leukocytosis, possible sepsis, hypertension and diabetes per history. PLAN: Continueupportive care, antibiotics per ID, follow clinically, respiratory care and monitor for further changes. Hemodialysis with ultrafiltration. Monitor vital signs and hemodynamics. BiPAP p.r.n . Monitor arterial blood gas for further changes. DVT prophylaxis Subjective ROS Limited/Unobtainable: No Allergies: Coded Allergies: No Known Allergies (Unverified , 05/29/19) Objective Last 24 Hour Vital Signs Date Time Temp Pulse Resp B/P (MAP) Pulse Ox O2 Delivery O2 Flow Rate FiO2 05/30/19 08:00 3.0 05/30/19 08:00 98.5 84 21 137/70 (92) 100 05/30/19 08:00 Nasal Cannula 3.0 05/30/19 07:06 82 18 98 Nasal Cannula 3.0 32 05/30/19 06:21 125/68 05/30/19 04:00 3.0 05/30/19 04:00 98.5 77 18 125/68 (87) 98 05/30/19 04:00 Nasal Cannula 3.0 05/30/19 04:00 77 05/30/19 00:23 149/64 05/30/19 00:00 Nasal Cannula 3.0 05/30/19 00:00 67 05/30/19 00:00 97.9 64 18 149/64 (92) 100 05/29/19 20:08 62 18 99 Nasal Cannula 3.0 32 05/29/19 20:00 98.0 60 20 152/64 (93) 100 05/29/19 20:00 Nasal Cannula 3.0 05/29/19 20:00 3.0 05/29/19 20:00 60 05/29/19 18:28 129/64 05/29/19 16:00 Nasal Cannula 3.0 05/29/19 16:00 3.0 05/29/19 16:00 61 05/29/19 14:32 129/64 05/29/19 13:22 98.6 05/29/19 12:00 60 05/29/19 12:00 Nasal Cannula 3.0 05/29/19 12:00 98.6 60 24 129/64 (85) 98 05/29/19 12:00 50 05/29/19 11:08 60 145/65 05/29/19 11:07 145/65 05/29/19 11:00 60 21 99 Facial 30 05/29/19 09:03 60 18 99 Facial 40 Intake and Output 05/29/19 05/30/19 19:00 07:00 Intake Total 656.666 ml 157.666 ml Output Total 400 ml 450 ml Balance 256.666 ml -292.334 ml Intake Oral 290 ml IV Total 366.666 ml 157.666 ml Output Urine Total 400 ml 450 ml Microbiology Date/Time Source Procedure Growth Status 05/29/19 03:34 Blood Blood Culture - Preliminary NO GROWTH AFTER 24 HOURS Resulted 05/29/19 03:30 Blood Blood Culture - Preliminary NO GROWTH AFTER 24 HOURS Resulted 05/29/19 14:00 Indwelling Cath Urine Culture - Preliminary NO GROWTH Resulted 05/29/19 04:13 Rectum Received Laboratory Tests 05/29/19 12:35: Lactic Acid Level 1.30 05/29/19 14:00: Urine Color Azucena, Urine Appearance Slightly cloudy, Urine pH 8, Urine Specific [place] 1.015, Urine Protein 2+H, Urine Glucose (UA) Negative, Urine Ketones Negative, Urine Blood Negative, Urine Nitrite Negative, Urine Bilirubin Negative , Urine Ictotest Negative, Urine Urobilinogen 4H, Urine Leukocyte Esterase Negative, Urine RBC 0-2, Urine WBC 5-10H, Urine Squamous Epithelial Cells Occasional, Urine Bacteria Few 05/29/19 17:15: Sodium Level 145, Potassium Level 4.2, Chloride Level 107, Carbon Dioxide Level 23, Anion Gap 15, Blood Urea Nitrogen 25H, Creatinine 2.5H, Estimat Glomerular Filtration Rate , Glucose Level 82#, Calcium Level 7.6L, Total Bilirubin 1.0, Aspartate Amino Transf (AST/SGOT) 27, Alanine Aminotransferase (ALT/SGPT) 11L, Alkaline Phosphatase 117H, Total Protein 6.1L, Albumin 2.6L, Globulin 3.5, Albumin/Globulin Ratio 0.7L 05/30/19 03:45: Sodium Level 143, Potassium Level 3.6, Chloride Level 107, Carbon Dioxide Level 23, Anion Gap 14, Blood Urea Nitrogen 25H, Creatinine 2.8H, Estimat Glomerular Filtration Rate , Glucose Level 78, Calcium Level 7.3L, Total Bilirubin 0.8, Aspartate Amino Transf (AST/SGOT) 19, Alanine Aminotransferase (ALT/SGPT) 9L, Alkaline Phosphatase 109, Total Protein 6.3L, Albumin 2.4L, Globulin 3.9, Albumin/Globulin Ratio 0.6L, White Blood Count 7.2#, Red Blood Count 3.48L, Hemoglobin 10.7L, Hematocrit 33.7L, Mean Corpuscular Volume 97, Mean Corpuscular Hemoglobin 30.9, Mean Corpuscular Hemoglobin Concent 31.9L, Red Cell Distribution Width 18.6H, Platelet Count 220, Mean Platelet Volume 5.8L, Neutrophils (%) (Auto) 61.1, Lymphocytes (%) (Auto) 22.4, Monocytes (%) (Auto) 12.1H, Eosinophils (%) (Auto) 2.5, Basophils (%) (Auto) 1.8, Hemoglobin A1c 5.2 , Uric Acid 5.8, Phosphorus Level 2.7, Magnesium Level 2.0, Iron Level 40L, Total Iron Binding Capacity 88L, Percent Iron Saturation 45, Unsaturated Iron Binding 48L, Ferritin 1035H, Gamma Glutamyl Transpeptidase 16, Ammonia 33H, Troponin I 0.027, C-Reactive Protein, Quantitative 7.8H, Pro-B-Type Natriuretic Peptide > 01209C, Triglycerides Level 103, Cholesterol Level 98, LDL Cholesterol 53, HDL Cholesterol 33L, Cholesterol/HDL Ratio 3.0L, Vitamin B12 Level 1694H, Folate 51.9, Random Vancomycin Level 14.9, Hepatitis A IgM Antibody [Pending], Hepatitis B Surface Antigen [Pending], Hepatitis B Core IgM Antibody [Pending], Hepatitis C Antibody [Pending] 05/30/19 07:03: Arterial Blood pH 7.452H, Arterial Blood Partial Pressure CO2 30.0L, Arterial Blood Partial Pressure O2 91.0, Arterial Blood HCO3 20.5L, Arterial Blood Oxygen Saturation 97.2, Arterial Blood Base Excess -2.6L, Peter Test Positive Current Medications Medications (Trade) Dose Ordered Sig/Christophe Route PRN Reason Start Time Stop Time Status Last Admin Dose Admin Acetaminophen (Tylenol) 650 mg Q4H PRN ORAL Mild Pain/Temp > 100.5 05/29/19 09:15 06/28/19 09:14 05/29/19 12:52 Amiodarone HCl (Cordarone) 200 mg BID ORAL 05/29/19 09:15 06/28/19 09:14 05/29/19 18:28 Aspirin (ASA) 325 mg DAILY ORAL 05/29/19 09:15 06/28/19 09:14 05/29/19 11:08 Bisacodyl (Dulcolax) 10 mg DAILY PRN RECTAL Constipation, LAST LINE 05/29/19 09:15 06/28/19 09:14 Clopidogrel Bisulfate (Plavix) 75 mg DAILY ORAL 05/29/19 09:15 06/28/19 09:14 05/29/19 11:08 Dextrose (Dextrose 50%) 25 ml Q30M PRN IV Hypoglycemia 05/29/19 10:00 06/28/19 09:59 Dextrose (Dextrose 50%) 50 ml Q30M PRN IV Hypoglycemia 05/29/19 10:00 06/28/19 09:59 Docusate Sodium (Colace) 100 mg THREE TIMES A DAY ORAL 05/29/19 18:00 06/28/19 17:59 05/29/19 18:28 Hydralazine HCl (Apresoline) 10 mg Q6HR ORAL 05/29/19 13:45 06/28/19 13:44 05/30/19 06:21 Insulin Aspart (NovoLOG) BEFORE MEALS AND HS SUBQ 05/29/19 11:30 06/28/19 11:29 Metoprolol Succinate (Toprol XL) 25 mg DAILY ORAL 05/29/19 09:15 06/28/19 09:14 05/29/19 11:08 Mineral Oil (Fleet's Mineral Oil Enema) 133 ml 3XW PRN RECTAL Constipation 05/29/19 09:15 06/28/19 09:14 Nitroglycerin (Ntg) 0.4 mg Q5MIN X 3 DOSES PRN SL CHEST PAIN 05/29/19 09:15 06/28/19 09:14 Ondansetron HCl (Zofran ODT) 4 mg Q8H PRN ORAL Nausea & Vomiting 05/29/19 09:15 06/28/19 09:14 Pantoprazole (Protonix) 40 mg BID ORAL 05/29/19 18:00 06/28/19 09:59 05/29/19 18:28 Piperacillin Sod/ Tazobactam Sod 3.375 gm/Sodium Chloride 110 ml @ 27.5 mls/hr 0500,1700 IVPB 05/29/19 17:00 06/05/19 16:59 05/30/19 05:16 Povidone Iodine (Betadine Shoshana) 1 applic DAILY TOPIC 05/29/19 09:15 06/28/19 09:14 05/29/19 11:32 Vancomycin HCl (Vanco rx to dose) 1 ea DAILY PRN MISC Per rx protocol 05/29/19 08:45 06/28/19 08:44 Vancomycin HCl 750 mg/Sodium Chloride 275 ml @ 183.333 mls/hr NOW ONCE IVPB 05/30/19 09:00 05/30/19 10:29 Vitamin A/Vitamin D (A & D Oint) 1 applic DAILY TOPIC 05/29/19 10:30 06/28/19 10:29 05/29/19 11:32 Zolpidem Tartrate (Ambien) 5 mg BEDTIME PRN ORAL Insomnia 05/29/19 09:15 06/05/19 09:14 Jadiel Porter MD May 30, 2019 09:04
--- NOTE | 2019-05-30 09:41 | NUR ---
RADIOLOGY DEPT., CHEST X-RAY DONE.-P.DYE
[2019-05-30] MEDS: Amiodarone 200mg tab ORAL SCH ×2 (09:47→17:56)
[2019-05-30] MEDS: Docusate 100mg cap ORAL SCH ×3 (09:47→17:27)
[2019-05-30] MEDS: Metoprolol Succinate XL 25mg tab ORAL SCH (09:48)
[2019-05-30] MEDS: Vitamin A&D Oint Tube TOPIC SCH (09:54)
[2019-05-30] MEDS: Betadine 4oz Bottle TOPIC SCH (09:54)
--- NOTE | 2019-05-30 10:10 | NUR ---
ST NOTES: REFERRED FOR A SWALLOW EVALUATION BY DR WHALEY, SEE REPORT DYSPHAGIA RISK FACTORS FOR THIS 83 Y.O.FEMALE: ACUTE ISSUES: RESP DISTRESS NEEDED CPAP THEN BIPAP ON 3 LITERS 02 NC NOW BILATERAL PULMONARY INFILTRATES APPEAR TO BE PULMONARY EDEMA, ESRD WITH HD (MWF), ADVANCED AGED WITH H/O COPD, SMOKING, RESPIRATORY AND ENDOCRINE D/Os, DM2 INSULIN), CARDIAC ARREST, GERD MEDS AT [facility] AND HERE. AICD RECENT STENT PLACED PACEMAKER AT [facility] ONE WEEK AGO, HTN NO POLST/AD REGARDING ARTIFICIAL NUTRITION IF NEEDS AT [facility] SEEING FOR SWALLOW EVAL NO REPORT AND ON A RENAL REG TEXTURE AND THIN LIQUID DIET. NO REPORT FROM [facility] [address] TO DATE. CURRENTLY ON A RENAL CLEAR LIQUID (NECTAR THICK) DIET BUT NO INTAKE RECORDED. PER RN, DINA, WITH PILLS AND NECTAR THICK WATER NO OVERT ASPIRATION. PATIENT ABLE TO CONVEY BASIC NEEDS IN INTELLIGIBLE LITHUANIAN AND UNDERSTANDS SIMPLE SENTENCES. ON 3 LITERS NC. WANTS TO HAVE SOME SOFT FRUIT. INITIAL IMPRESSIONS S/S OF AT LEAST A MILD/MOD OROPHARYNGEAL DYSPHAGIA LIPS/TONGUE GROSSLY FUNCTIONAL VOICE CLEAR BUT SOFT AND COUGH WEAK TO COMMAND GIVEN THIN LIQUIDS VIA STRAW SEQUENTIAL SIPS, NEEDS TO TAKE A BREATH AFTER 5 SWALLOWS (GETS SOB AND RESP RATE GOES UP FROM 18 TO 20). DID NOT FINISH WATER (DISLIKES AND HAS NO APPETITE). RR GOES DOWN WITH REST FOR A COUPLE OF MINUTES, NO OVERT ASPIRATION BUT HAS RISK DUE TO RESP COORDINATION AND SWALLOWING DIFFICULTIES. GIVEN SIP VIA CUP OF NECTAR THICK WATER, PATIENT DISLIKED IT BUT HAD A GROSSLY FUNCTIONAL SWALLOW W/O ORAL RESIDUE NOR OVERT ASPIRATION . GIVEN PUREED, TENDS TO CHEW IT AND NOT SWALLOW FOR 5 SECONDS WITH FAIR HYOLARYNGEAL EXCURSION, NO ORAL RESIDUE NOR OVERT ASPIRATION. GIVEN MASTICATED SOLID (1/2 CRACKER WITH UPPER PARTIAL DENTURES AND MIN ANTERIOR ONLY TEETH), CHEWED FOR 15 SECONDS AND HAD MILD ORAL RESIDUE AFTER THE SWALLOW, NEEDED THIN LIQUID WASH TO CLEAR, NO OVERT ASPIRATION. QUESTIONABLE IF SHE HAS A SILENT ASPIRATION RISK. LUNGS HAVE INFILTRATE AND PULMONARY EDEMA. RECOMMENDATIONS: CONSIDER MOD BARIUM SWALLOW STUDY TO FURTHER ASSESS SWALLOW, DETERMINE SILENT ASP RISK/ETIOLOGY, AND ATTEMPT TRIAL TX IF PO CONTINUES FOR QUALITY OF LIFE, CONSIDER GIVING RENAL PUREED AND THIN LIQUIDS (REFUSING THICK LIQUIDS) USING POSTED ASP/REFLUX PRECAUTIONS AND ONE TO ONE FEEDING (POOR APPETITE). CONSIDER SENDING HIGH JAMES SUP AND DIET TYPE PER RD (WILL SEE TOMORROW) D/W STEVEN ABDI WHO AGREED WITH AT LEAST THE RENAL DIET SINCE SHE IS ON HD. EDUCATED/TRAINED AREA DEVELOPMENT MANAGERDINA, IN POSTED PRECAUTIONS. SKILLED DYSPHAGIA MANAGEMENT AND TX Addendum: 05/30/19 at 1014 by SHAE BAUTISTA FARM MORTGAGE AGENT OK TO HAVE SOFT FRUIT CUT INTO SMALL PIECES CALORIE COUNT 72 HOURS (POOR APPETITE) Addendum: 05/30/19 at 1023 by SHAE BAUTISTA FARM MORTGAGE AGENT PER SENIOR CREDIT OFFICER PATIENT HAS RR OF 24 AT TIMES AND AT 10:20 IT WENT UP TO 26 AT REST
--- NOTE | 2019-05-30 10:26 | General Progress Note ---
Assessment/Plan Assessment/Plan: Assessment - abnormal LFT - improved - GB sludge - resp failure - arrhythmia, s/p AICD - CAD, s/p Stent - ESRD/HD - DM - HTN Recommendations - trial of clears - follow LFT - f/u hepatitis serologies - elevate HOB Subjective Allergies: Coded Allergies: No Known Allergies (Unverified , 05/29/19) Subjective more awake family at bedside off BIPAP responsive Objective Last 24 Hour Vital Signs Date Time Temp Pulse Resp B/P (MAP) Pulse Ox O2 Delivery O2 Flow Rate FiO2 05/30/19 09:48 84 137/70 05/30/19 08:00 3.0 05/30/19 08:00 98.5 84 21 137/70 (92) 100 05/30/19 08:00 Nasal Cannula 3.0 05/30/19 07:40 85 05/30/19 07:06 82 18 98 Nasal Cannula 3.0 32 05/30/19 06:21 125/68 05/30/19 04:00 3.0 05/30/19 04:00 98.5 77 18 125/68 (87) 98 05/30/19 04:00 Nasal Cannula 3.0 05/30/19 04:00 77 05/30/19 00:23 149/64 05/30/19 00:00 Nasal Cannula 3.0 05/30/19 00:00 67 05/30/19 00:00 97.9 64 18 149/64 (92) 100 05/29/19 20:08 62 18 99 Nasal Cannula 3.0 32 05/29/19 20:00 98.0 60 20 152/64 (93) 100 05/29/19 20:00 Nasal Cannula 3.0 05/29/19 20:00 3.0 05/29/19 20:00 60 05/29/19 18:28 129/64 05/29/19 16:00 Nasal Cannula 3.0 05/29/19 16:00 3.0 05/29/19 16:00 61 05/29/19 14:32 129/64 05/29/19 13:22 98.6 05/29/19 12:00 60 05/29/19 12:00 Nasal Cannula 3.0 05/29/19 12:00 98.6 60 24 129/64 (85) 98 05/29/19 12:00 50 05/29/19 11:08 60 145/65 05/29/19 11:07 145/65 05/29/19 11:00 60 21 99 Facial 30 Intake and Output 05/29/19 05/30/19 19:00 07:00 Intake Total 656.666 ml 157.666 ml Output Total 400 ml 450 ml Balance 256.666 ml -292.334 ml Intake Oral 290 ml IV Total 366.666 ml 157.666 ml Output Urine Total 400 ml 450 ml Laboratory Tests 05/29/19 12:35: Lactic Acid Level 1.30 05/29/19 14:00: Urine Color Azucena, Urine Appearance Slightly cloudy, Urine pH 8, Urine Specific [place] 1.015, Urine Protein 2+H, Urine Glucose (UA) Negative, Urine Ketones Negative, Urine Blood Negative, Urine Nitrite Negative, Urine Bilirubin Negative , Urine Ictotest Negative, Urine Urobilinogen 4H, Urine Leukocyte Esterase Negative, Urine RBC 0-2, Urine WBC 5-10H, Urine Squamous Epithelial Cells Occasional, Urine Bacteria Few 05/29/19 17:15: Sodium Level 145, Potassium Level 4.2, Chloride Level 107, Carbon Dioxide Level 23, Anion Gap 15, Blood Urea Nitrogen 25H, Creatinine 2.5H, Estimat Glomerular Filtration Rate , Glucose Level 82#, Calcium Level 7.6L, Total Bilirubin 1.0, Aspartate Amino Transf (AST/SGOT) 27, Alanine Aminotransferase (ALT/SGPT) 11L, Alkaline Phosphatase 117H, Total Protein 6.1L, Albumin 2.6L, Globulin 3.5, Albumin/Globulin Ratio 0.7L 05/30/19 03:45: Sodium Level 143, Potassium Level 3.6, Chloride Level 107, Carbon Dioxide Level 23, Anion Gap 14, Blood Urea Nitrogen 25H, Creatinine 2.8H, Estimat Glomerular Filtration Rate , Glucose Level 78, Calcium Level 7.3L, Total Bilirubin 0.8, Aspartate Amino Transf (AST/SGOT) 19, Alanine Aminotransferase (ALT/SGPT) 9L, Alkaline Phosphatase 109, Total Protein 6.3L, Albumin 2.4L, Globulin 3.9, Albumin/Globulin Ratio 0.6L, White Blood Count 7.2#, Red Blood Count 3.48L, Hemoglobin 10.7L, Hematocrit 33.7L, Mean Corpuscular Volume 97, Mean Corpuscular Hemoglobin 30.9, Mean Corpuscular Hemoglobin Concent 31.9L, Red Cell Distribution Width 18.6H, Platelet Count 220, Mean Platelet Volume 5.8L, Neutrophils (%) (Auto) 61.1, Lymphocytes (%) (Auto) 22.4, Monocytes (%) (Auto) 12.1H, Eosinophils (%) (Auto) 2.5, Basophils (%) (Auto) 1.8, Hemoglobin A1c 5.2 , Uric Acid 5.8, Phosphorus Level 2.7, Magnesium Level 2.0, Iron Level 40L, Total Iron Binding Capacity 88L, Percent Iron Saturation 45, Unsaturated Iron Binding 48L, Ferritin 1035H, Gamma Glutamyl Transpeptidase 16, Ammonia 33H, Troponin I 0.027, C-Reactive Protein, Quantitative 7.8H, Pro-B-Type Natriuretic Peptide > 53111V, Triglycerides Level 103, Cholesterol Level 98, LDL Cholesterol 53, HDL Cholesterol 33L, Cholesterol/HDL Ratio 3.0L, Vitamin B12 Level 1694H, Folate 51.9, Random Vancomycin Level 14.9, Hepatitis A IgM Antibody [Pending], Hepatitis B Surface Antigen [Pending], Hepatitis B Core IgM Antibody [Pending], Hepatitis C Antibody [Pending] 05/30/19 07:03: Arterial Blood pH 7.452H, Arterial Blood Partial Pressure CO2 30.0L, Arterial Blood Partial Pressure O2 91.0, Arterial Blood HCO3 20.5L, Arterial Blood Oxygen Saturation 97.2, Arterial Blood Base Excess -2.6L, Peter Test Positive Height (Feet): 4 Height (Inches): 10.00 Weight (Pounds): 129 Objective Elderly woman NCAT supple CTA RR abd soft ND no edema Susan Malone MD May 30, 2019 10:25
--- NOTE | 2019-05-30 10:59 | CDS Physician Query ---
PLEASE COMPLETE THE DOCUMENT BEFORE SIGNING Dear Dr. Rao Date: 05.30.19 CDS: Marci Aguilar Contact: Exercise your independent professional judgment when responding to query. Question asked do not imply a particular answer is desired/expected Clinical Documentation States: "Heart Failure / CHF" documented in consultation, echo performed on 05.29.19 Clinical Findings Show: BNP >35,000H Diuretic Metolazone Please Clarify: Acuity [ ] Acute [ ] Chronic [ ] Acute on Chronic Type [ ] Systolic [ ] Diastolic [ ] Systolic & Diastolic (Combined) [ ] Left Heart failure [ ] Other: Etiology [ ] CHF due to Hypertension [ ] Cardiomyopathy [ ] Valvular Heart Disease [ ] Coronary Artery Disease [ ] Unable to determine [ ] Other: Condition Present on Admission: [ ] Yes [ ] No [ ]Clinically Undeterminable Please also document in your Progress Notes and/or Discharge Summary and indicate if the condition was present on admission. Physican Signature MTDD
[2019-05-30] MEDS ORDERED: Carvedilol 12.5mg tab ORAL SCH (11:00)
--- NOTE | 2019-05-30 11:02 | Infectious Diseases Prog Note ---
Assessment/Plan Assessment/Plan IMPRESSION: 1. Sepsis or systemic inflammatory response syndrome. 2. Congestion, ? pneumonia 3. Hypoxemic respiratory failure. 4. Hyperkalemia. 5. Lactic acidosis. 6. End-stage renal disease on hemodialysis. 7. Diabetes mellitus type 2. 8. Congestive heart failure. 9. Hypertension. 10. Hyperlipidemia. 11. Bacteremia RECOMMENDATION: We will continue with Zosyn and vancomycin. We will follow up the cultures. Subjective ROS Limited/Unobtainable: Yes Constitutional: Reports: no symptoms, other - doing better Respiratory: Reports: no symptoms Musculoskeletal: Reports: no symptoms Allergies: Coded Allergies: No Known Allergies (Unverified , 05/29/19) Objective Vital Signs Last 24 Hour Vital Signs Date Time Temp Pulse Resp B/P (MAP) Pulse Ox O2 Delivery O2 Flow Rate FiO2 05/30/19 09:48 84 137/70 05/30/19 08:00 3.0 05/30/19 08:00 98.5 84 21 137/70 (92) 100 05/30/19 08:00 Nasal Cannula 3.0 05/30/19 07:40 85 05/30/19 07:06 82 18 98 Nasal Cannula 3.0 32 05/30/19 06:21 125/68 05/30/19 04:00 3.0 05/30/19 04:00 98.5 77 18 125/68 (87) 98 05/30/19 04:00 Nasal Cannula 3.0 05/30/19 04:00 77 05/30/19 00:23 149/64 05/30/19 00:00 Nasal Cannula 3.0 05/30/19 00:00 67 05/30/19 00:00 97.9 64 18 149/64 (92) 100 05/29/19 20:08 62 18 99 Nasal Cannula 3.0 32 05/29/19 20:00 98.0 60 20 152/64 (93) 100 05/29/19 20:00 Nasal Cannula 3.0 05/29/19 20:00 3.0 05/29/19 20:00 60 05/29/19 18:28 129/64 05/29/19 16:00 Nasal Cannula 3.0 05/29/19 16:00 3.0 05/29/19 16:00 61 05/29/19 14:32 129/64 05/29/19 13:22 98.6 05/29/19 12:00 60 05/29/19 12:00 Nasal Cannula 3.0 05/29/19 12:00 98.6 60 24 129/64 (85) 98 05/29/19 12:00 50 05/29/19 11:08 60 145/65 05/29/19 11:07 145/65 05/29/19 11:00 60 21 99 Facial 30 Height (Feet): 4 Height (Inches): 10.00 Weight (Pounds): 129 General Appearance: no acute distress HEENT: mucous membranes moist Respiratory/Chest: lungs clear, other - oxygen by nasal cuula Cardiovascular: normal rate, pacemaker/AICD, other - Permacath Abdomen: soft, non tender Extremities: no edema Neurologic/Psychiatric: alert, responsive Musculoskeletal: atrophy Microbiology Date/Time Source Procedure Growth Status 05/29/19 03:34 Blood Blood Culture - Preliminary NO GROWTH AFTER 24 HOURS Resulted 05/29/19 03:30 Blood Blood Culture - Preliminary Resulted 05/29/19 14:00 Indwelling Cath Urine Culture - Preliminary NO GROWTH Resulted 05/29/19 04:13 Rectum Received Laboratory Tests Test 05/29/19 12:35 05/29/19 14:00 05/29/19 17:15 05/30/19 03:45 Lactic Acid Level 1.30 mmol/L (0.4-2.0) Urine Color Azucena Urine Appearance Slightly cloudy Urine pH 8 (4.5-8.0) Urine Specific [place] 1.015 (1.005-1.035) Urine Protein 2+ (NEGATIVE) H Urine Glucose (UA) Negative (NEGATIVE) Urine Ketones Negative (NEGATIVE) Urine Blood Negative (NEGATIVE) Urine Nitrite Negative (NEGATIVE) Urine Bilirubin Negative (NEGATIVE) Urine Ictotest Negative (NEGATIVE) Urine Urobilinogen 4 MG/DL (0.0-1.0) H Urine Leukocyte Esterase Negative (NEGATIVE) Urine RBC 0-2 /HPF (0 - 2) Urine WBC 5-10 /HPF (0 - 2) H Urine Squamous Epithelial Cells Occasional /LPF Urine Bacteria Few /HPF (NONE) Sodium Level 145 MMOL/L (136-145) 143 MMOL/L (136-145) Potassium Level 4.2 MMOL/L (3.5-5.1) 3.6 MMOL/L (3.5-5.1) Chloride Level 107 MMOL/L (98-107) 107 MMOL/L (98-107) Carbon Dioxide Level 23 MMOL/L (21-32) 23 MMOL/L (21-32) Anion Gap 15 mmol/L (5-15) 14 mmol/L (5-15) Blood Urea Nitrogen 25 mg/dL (7-18) H 25 mg/dL (7-18) H Creatinine 2.5 MG/DL (0.55-1.30) H 2.8 MG/DL (0.55-1.30) H Estimat Glomerular Filtration Rate mL/min (>60) mL/min (>60) Glucose Level 82 MG/DL (74-106) # 78 MG/DL (74-106) Calcium Level 7.6 MG/DL (8.5-10.1) L 7.3 MG/DL (8.5-10.1) L Total Bilirubin 1.0 MG/DL (0.2-1.0) 0.8 MG/DL (0.2-1.0) Aspartate Amino Transf (AST/SGOT) 27 U/L (15-37) 19 U/L (15-37) Alanine Aminotransferase (ALT/SGPT) 11 U/L (12-78) L 9 U/L (12-78) L Alkaline Phosphatase 117 U/L (46-116) H 109 U/L (46-116) Total Protein 6.1 G/DL (6.4-8.2) L 6.3 G/DL (6.4-8.2) L Albumin 2.6 G/DL (3.4-5.0) L 2.4 G/DL (3.4-5.0) L Globulin 3.5 g/dL 3.9 g/dL Albumin/Globulin Ratio 0.7 (1.0-2.7) L 0.6 (1.0-2.7) L White Blood Count 7.2 K/UL (4.8-10.8) # Red Blood Count 3.48 M/UL (4.20-5.40) L Hemoglobin 10.7 G/DL (12.0-16.0) L Hematocrit 33.7 % (37.0-47.0) L Mean Corpuscular Volume 97 FL (80-99) Mean Corpuscular Hemoglobin 30.9 PG (27.0-31.0) Mean Corpuscular Hemoglobin Concent 31.9 G/DL (32.0-36.0) L Red Cell Distribution Width 18.6 % (11.6-14.8) H Platelet Count 220 K/UL (150-450) Mean Platelet Volume 5.8 FL (6.5-10.1) L Neutrophils (%) (Auto) 61.1 % (45.0-75.0) Lymphocytes (%) (Auto) 22.4 % (20.0-45.0) Monocytes (%) (Auto) 12.1 % (1.0-10.0) H Eosinophils (%) (Auto) 2.5 % (0.0-3.0) Basophils (%) (Auto) 1.8 % (0.0-2.0) Hemoglobin A1c 5.2 % (4.3-6.0) Uric Acid 5.8 MG/DL (2.6-7.2) Phosphorus Level 2.7 MG/DL (2.5-4.9) Magnesium Level 2.0 MG/DL (1.8-2.4) Iron Level 40 ug/dL (50-175) L Total Iron Binding Capacity 88 ug/dL (250-450) L Percent Iron Saturation 45 % (15-50) Unsaturated Iron Binding 48 ug/dL (112-346) L Ferritin 1035 NG/ML (8-388) H Gamma Glutamyl Transpeptidase 16 U/L (5-85) Ammonia 33 umol/L (11-32) H Troponin I 0.027 ng/mL (0.000-0.056) C-Reactive Protein, Quantitative 7.8 mg/dL (0.00-0.90) H Pro-B-Type Natriuretic Peptide > 54696 pg/mL (0-125) H Triglycerides Level 103 MG/DL (30-150) Cholesterol Level 98 MG/DL (< 200) LDL Cholesterol 53 mg/dL (<100) HDL Cholesterol 33 MG/DL (40-60) L Cholesterol/HDL Ratio 3.0 (3.3-4.4) L Vitamin B12 Level 1694 PG/ML (193-986) H Folate 51.9 NG/ML (8.6-58.9) Random Vancomycin Level 14.9 ug/mL Hepatitis A IgM Antibody Pending Hepatitis B Surface Antigen Pending Hepatitis B Core IgM Antibody Pending Hepatitis C Antibody Pending Test 05/30/19 07:03 Arterial Blood pH 7.452 (7.350-7.450) Arterial Blood Partial Pressure CO2 30.0 mmHg (35.0-45.0) L Arterial Blood Partial Pressure O2 91.0 mmHg (75.0-100.0) Arterial Blood HCO3 20.5 mmol/L (22.0-26.0) L Arterial Blood Oxygen Saturation 97.2 % (95-100) Arterial Blood Base Excess -2.6 (-2-2) L Peter Test Positive Current Medications Medications (Trade) Dose Ordered Sig/Christophe Route PRN Reason Start Time Stop Time Status Last Admin Dose Admin Acetaminophen (Tylenol) 650 mg Q4H PRN ORAL Mild Pain/Temp > 100.5 05/29/19 09:15 06/28/19 09:14 05/29/19 12:52 Amiodarone HCl (Cordarone) 200 mg BID ORAL 05/29/19 09:15 06/28/19 09:14 05/30/19 09:47 Aspirin (ASA) 325 mg DAILY ORAL 05/29/19 09:15 06/28/19 09:14 05/30/19 09:47 Bisacodyl (Dulcolax) 10 mg DAILY PRN RECTAL Constipation, LAST LINE 05/29/19 09:15 06/28/19 09:14 Clopidogrel Bisulfate (Plavix) 75 mg DAILY ORAL 05/29/19 09:15 06/28/19 09:14 05/30/19 09:47 Dextrose (Dextrose 50%) 25 ml Q30M PRN IV Hypoglycemia 05/29/19 10:00 06/28/19 09:59 Dextrose (Dextrose 50%) 50 ml Q30M PRN IV Hypoglycemia 05/29/19 10:00 06/28/19 09:59 Docusate Sodium (Colace) 100 mg THREE TIMES A DAY ORAL 05/29/19 18:00 06/28/19 17:59 05/30/19 09:47 Hydralazine HCl (Apresoline) 10 mg Q6HR ORAL 05/29/19 13:45 06/28/19 13:44 05/30/19 06:21 Insulin Aspart (NovoLOG) BEFORE MEALS AND HS SUBQ 05/29/19 11:30 06/28/19 11:29 Metoprolol Succinate (Toprol XL) 25 mg DAILY ORAL 05/29/19 09:15 06/28/19 09:14 05/30/19 09:48 Mineral Oil (Fleet's Mineral Oil Enema) 133 ml 3XW PRN RECTAL Constipation 05/29/19 09:15 06/28/19 09:14 Nitroglycerin (Ntg) 0.4 mg Q5MIN X 3 DOSES PRN SL CHEST PAIN 05/29/19 09:15 06/28/19 09:14 Ondansetron HCl (Zofran ODT) 4 mg Q8H PRN ORAL Nausea & Vomiting 05/29/19 09:15 06/28/19 09:14 Pantoprazole (Protonix) 40 mg BID ORAL 05/29/19 18:00 06/28/19 09:59 05/30/19 09:48 Piperacillin Sod/ Tazobactam Sod 3.375 gm/Sodium Chloride 110 ml @ 27.5 mls/hr 0500,1700 IVPB 05/29/19 17:00 06/05/19 16:59 05/30/19 05:16 Povidone Iodine (Betadine Shoshana) 1 applic DAILY TOPIC 05/29/19 09:15 06/28/19 09:14 05/30/19 09:54 Vancomycin HCl (Vanco rx to dose) 1 ea DAILY PRN MISC Per rx protocol 05/29/19 08:45 06/28/19 08:44 Vitamin A/Vitamin D (A & D Oint) 1 applic DAILY TOPIC 05/29/19 10:30 06/28/19 10:29 05/30/19 09:54 Zolpidem Tartrate (Ambien) 5 mg BEDTIME PRN ORAL Insomnia 05/29/19 09:15 06/05/19 09:14 William Dailey MD May 30, 2019 11:02
--- NOTE | 2019-05-30 11:06 | Nephrology Progress Note ---
Assessment/Plan Problem List: (1) ESRD (end stage renal disease) (2) Respiratory distress (3) Urinary retention (4) Pulmonary edema (5) Cardiomyopathy Assessment Sepsis ESRD Urine outlet obst, Urinary retention CHF / cardiomyopathy Plan 2D echo low ej fx ortiz urine studies optimize cardiac and pulmonary status Subjective ROS Limited/Unobtainable: No Constitutional: Reports: malaise, other - breathing better Objective Objective Last 24 Hour Vital Signs Date Time Temp Pulse Resp B/P (MAP) Pulse Ox O2 Delivery O2 Flow Rate FiO2 05/30/19 09:48 84 137/70 05/30/19 08:00 3.0 05/30/19 08:00 98.5 84 21 137/70 (92) 100 05/30/19 08:00 Nasal Cannula 3.0 05/30/19 07:40 85 05/30/19 07:06 82 18 98 Nasal Cannula 3.0 32 05/30/19 06:21 125/68 05/30/19 04:00 3.0 05/30/19 04:00 98.5 77 18 125/68 (87) 98 05/30/19 04:00 Nasal Cannula 3.0 05/30/19 04:00 77 05/30/19 00:23 149/64 05/30/19 00:00 Nasal Cannula 3.0 05/30/19 00:00 67 05/30/19 00:00 97.9 64 18 149/64 (92) 100 05/29/19 20:08 62 18 99 Nasal Cannula 3.0 32 05/29/19 20:00 98.0 60 20 152/64 (93) 100 05/29/19 20:00 Nasal Cannula 3.0 05/29/19 20:00 3.0 05/29/19 20:00 60 05/29/19 18:28 129/64 05/29/19 16:00 Nasal Cannula 3.0 05/29/19 16:00 3.0 05/29/19 16:00 61 05/29/19 14:32 129/64 05/29/19 13:22 98.6 05/29/19 12:00 60 05/29/19 12:00 Nasal Cannula 3.0 05/29/19 12:00 98.6 60 24 129/64 (85) 98 05/29/19 12:00 50 05/29/19 11:08 60 145/65 05/29/19 11:07 145/65 Intake and Output 05/29/19 05/30/19 19:00 07:00 Intake Total 656.666 ml 157.666 ml Output Total 400 ml 450 ml Balance 256.666 ml -292.334 ml Intake Oral 290 ml IV Total 366.666 ml 157.666 ml Output Urine Total 400 ml 450 ml Current Medications Medications (Trade) Dose Ordered Sig/Christophe Route PRN Reason Start Time Stop Time Status Last Admin Dose Admin Acetaminophen (Tylenol) 650 mg Q4H PRN ORAL Mild Pain/Temp > 100.5 05/29/19 09:15 06/28/19 09:14 05/29/19 12:52 Amiodarone HCl (Cordarone) 200 mg BID ORAL 05/29/19 09:15 06/28/19 09:14 05/30/19 09:47 Aspirin (ASA) 325 mg DAILY ORAL 05/29/19 09:15 06/28/19 09:14 05/30/19 09:47 Bisacodyl (Dulcolax) 10 mg DAILY PRN RECTAL Constipation, LAST LINE 05/29/19 09:15 06/28/19 09:14 Clopidogrel Bisulfate (Plavix) 75 mg DAILY ORAL 05/29/19 09:15 06/28/19 09:14 05/30/19 09:47 Dextrose (Dextrose 50%) 25 ml Q30M PRN IV Hypoglycemia 05/29/19 10:00 06/28/19 09:59 Dextrose (Dextrose 50%) 50 ml Q30M PRN IV Hypoglycemia 05/29/19 10:00 06/28/19 09:59 Docusate Sodium (Colace) 100 mg THREE TIMES A DAY ORAL 05/29/19 18:00 06/28/19 17:59 05/30/19 09:47 Hydralazine HCl (Apresoline) 20 mg Q6HR ORAL 05/30/19 12:00 06/28/19 13:44 Insulin Aspart (NovoLOG) BEFORE MEALS AND HS SUBQ 05/29/19 11:30 06/28/19 11:29 Metolazone (Zaroxolyn) 10 mg ONCE ORAL 05/30/19 11:00 05/30/19 12:00 Metoprolol Succinate (Toprol XL) 25 mg DAILY ORAL 05/29/19 09:15 06/28/19 09:14 05/30/19 09:48 Mineral Oil (Fleet's Mineral Oil Enema) 133 ml 3XW PRN RECTAL Constipation 05/29/19 09:15 06/28/19 09:14 Nitroglycerin (Ntg) 0.4 mg Q5MIN X 3 DOSES PRN SL CHEST PAIN 05/29/19 09:15 06/28/19 09:14 Ondansetron HCl (Zofran ODT) 4 mg Q8H PRN ORAL Nausea & Vomiting 05/29/19 09:15 06/28/19 09:14 Pantoprazole (Protonix) 40 mg BID ORAL 05/29/19 18:00 06/28/19 09:59 05/30/19 09:48 Piperacillin Sod/ Tazobactam Sod 3.375 gm/Sodium Chloride 110 ml @ 27.5 mls/hr 0500,1700 IVPB 05/29/19 17:00 06/05/19 16:59 05/30/19 05:16 Povidone Iodine (Betadine Shoshana) 1 applic DAILY TOPIC 05/29/19 09:15 06/28/19 09:14 05/30/19 09:54 Vancomycin HCl (Vanco rx to dose) 1 ea DAILY PRN MISC Per rx protocol 05/29/19 08:45 06/28/19 08:44 Vitamin A/Vitamin D (A & D Oint) 1 applic DAILY TOPIC 05/29/19 10:30 06/28/19 10:29 05/30/19 09:54 Zolpidem Tartrate (Ambien) 5 mg BEDTIME PRN ORAL Insomnia 05/29/19 09:15 06/05/19 09:14 Laboratory Tests 05/29/19 12:35: Lactic Acid Level 1.30 05/29/19 14:00: Urine Color Azucena, Urine Appearance Slightly cloudy, Urine pH 8, Urine Specific [place] 1.015, Urine Protein 2+H, Urine Glucose (UA) Negative, Urine Ketones Negative, Urine Blood Negative, Urine Nitrite Negative, Urine Bilirubin Negative , Urine Ictotest Negative, Urine Urobilinogen 4H, Urine Leukocyte Esterase Negative, Urine RBC 0-2, Urine WBC 5-10H, Urine Squamous Epithelial Cells Occasional, Urine Bacteria Few 05/29/19 17:15: Sodium Level 145, Potassium Level 4.2, Chloride Level 107, Carbon Dioxide Level 23, Anion Gap 15, Blood Urea Nitrogen 25H, Creatinine 2.5H, Estimat Glomerular Filtration Rate , Glucose Level 82#, Calcium Level 7.6L, Total Bilirubin 1.0, Aspartate Amino Transf (AST/SGOT) 27, Alanine Aminotransferase (ALT/SGPT) 11L, Alkaline Phosphatase 117H, Total Protein 6.1L, Albumin 2.6L, Globulin 3.5, Albumin/Globulin Ratio 0.7L 05/30/19 03:45: Sodium Level 143, Potassium Level 3.6, Chloride Level 107, Carbon Dioxide Level 23, Anion Gap 14, Blood Urea Nitrogen 25H, Creatinine 2.8H, Estimat Glomerular Filtration Rate , Glucose Level 78, Calcium Level 7.3L, Total Bilirubin 0.8, Aspartate Amino Transf (AST/SGOT) 19, Alanine Aminotransferase (ALT/SGPT) 9L, Alkaline Phosphatase 109, Total Protein 6.3L, Albumin 2.4L, Globulin 3.9, Albumin/Globulin Ratio 0.6L, White Blood Count 7.2#, Red Blood Count 3.48L, Hemoglobin 10.7L, Hematocrit 33.7L, Mean Corpuscular Volume 97, Mean Corpuscular Hemoglobin 30.9, Mean Corpuscular Hemoglobin Concent 31.9L, Red Cell Distribution Width 18.6H, Platelet Count 220, Mean Platelet Volume 5.8L, Neutrophils (%) (Auto) 61.1, Lymphocytes (%) (Auto) 22.4, Monocytes (%) (Auto) 12.1H, Eosinophils (%) (Auto) 2.5, Basophils (%) (Auto) 1.8, Hemoglobin A1c 5.2 , Uric Acid 5.8, Phosphorus Level 2.7, Magnesium Level 2.0, Iron Level 40L, Total Iron Binding Capacity 88L, Percent Iron Saturation 45, Unsaturated Iron Binding 48L, Ferritin 1035H, Gamma Glutamyl Transpeptidase 16, Ammonia 33H, Troponin I 0.027, C-Reactive Protein, Quantitative 7.8H, Pro-B-Type Natriuretic Peptide > 39231J, Triglycerides Level 103, Cholesterol Level 98, LDL Cholesterol 53, HDL Cholesterol 33L, Cholesterol/HDL Ratio 3.0L, Vitamin B12 Level 1694H, Folate 51.9, Random Vancomycin Level 14.9, Hepatitis A IgM Antibody [Pending], Hepatitis B Surface Antigen [Pending], Hepatitis B Core IgM Antibody [Pending], Hepatitis C Antibody [Pending] 05/30/19 07:03: Arterial Blood pH 7.452H, Arterial Blood Partial Pressure CO2 30.0L, Arterial Blood Partial Pressure O2 91.0, Arterial Blood HCO3 20.5L, Arterial Blood Oxygen Saturation 97.2, Arterial Blood Base Excess -2.6L, Peter Test Positive Height (Feet): 4 Height (Inches): 10.00 Weight (Pounds): 129 General Appearance: no apparent distress Cardiovascular: normal rate Respiratory/Chest: decreased breath sounds Abdomen: soft Genitourinary/Rectal: other - Josep Enciso MD May 30, 2019 11:06
--- NOTE | 2019-05-30 11:43 | NUR ---
*-* INSURANCE *-* ALL AVAILABLE CLINICALS HAVE BEEN FAXED TO [facility] F: [phone] Addendum: 05/30/19 at 1551 by VERONIKA MCMILLAN CM [place] Tracking#[id number] ; [place] #[phone]
[2019-05-30 11:58] VITALS: BP 123/75
--- NOTE | 2019-05-30 12:32 | Cardiac Electrophysiology PN ---
Assessment/Plan Assessment/Plan 1. Status post [employer] DDD defibrillator implantation at [facility] on 05/22/19. Patient had VT and ATP and then ICD shock this am. ICD interrogation pending today. 2. Coronary artery disease s/p DESx 2 in prox-mid RCA and ostial R PL placement on 05/19/19. S/P [facility] mid LAD and mid Cx on 05/17/19 No CP on aspirin, Plavix, and Toprol-XL 25 mg daily. 3. Ischemic cardiomyopathy. EF 35%. The patient is on lisinopril 20 mg daily and metoprolol as well as hemodialysis. 4. PAF on Amiodarone that will increase to 400 bid in view of recurrent VT 5. End-stage renal disease, on hemodialysis. 6. Fever and sepsis. The patient is on vancomycin and Zosyn. The incision currently is intact. We will get an echocardiogram for inspection in view of the patient's recent device implantation to make sure there is no device related infection as white count is 17.8 and the patient has lactic acidosis. JARRED RN Subjective Subjective Had shock from ICD for VT that converted to SR. No CP or SOB.Records from [facility] obtained and reviewed in detail. Objective Last 24 Hour Vital Signs Date Time Temp Pulse Resp B/P (MAP) Pulse Ox O2 Delivery O2 Flow Rate FiO2 05/30/19 11:58 98.6 85 21 123/75 (91) 100 05/30/19 09:48 84 137/70 05/30/19 08:00 3.0 05/30/19 08:00 98.5 84 21 137/70 (92) 100 05/30/19 08:00 Nasal Cannula 3.0 05/30/19 07:40 85 05/30/19 07:06 82 18 98 Nasal Cannula 3.0 32 05/30/19 06:21 125/68 05/30/19 04:00 3.0 05/30/19 04:00 98.5 77 18 125/68 (87) 98 05/30/19 04:00 Nasal Cannula 3.0 05/30/19 04:00 77 05/30/19 00:23 149/64 05/30/19 00:00 Nasal Cannula 3.0 05/30/19 00:00 67 05/30/19 00:00 97.9 64 18 149/64 (92) 100 05/29/19 20:08 62 18 99 Nasal Cannula 3.0 32 05/29/19 20:00 98.0 60 20 152/64 (93) 100 05/29/19 20:00 Nasal Cannula 3.0 05/29/19 20:00 3.0 05/29/19 20:00 60 05/29/19 18:28 129/64 05/29/19 16:00 Nasal Cannula 3.0 05/29/19 16:00 3.0 05/29/19 16:00 61 05/29/19 14:32 129/64 05/29/19 13:22 98.6 Intake and Output 05/29/19 05/30/19 19:00 07:00 Intake Total 656.666 ml 157.666 ml Output Total 400 ml 450 ml Balance 256.666 ml -292.334 ml Intake Oral 290 ml IV Total 366.666 ml 157.666 ml Output Urine Total 400 ml 450 ml Laboratory Tests Test 05/29/19 12:35 05/29/19 14:00 05/29/19 17:15 05/30/19 03:45 Lactic Acid Level 1.30 mmol/L (0.4-2.0) Urine Color Azucena Urine Appearance Slightly cloudy Urine pH 8 (4.5-8.0) Urine Specific [place] 1.015 (1.005-1.035) Urine Protein 2+ (NEGATIVE) H Urine Glucose (UA) Negative (NEGATIVE) Urine Ketones Negative (NEGATIVE) Urine Blood Negative (NEGATIVE) Urine Nitrite Negative (NEGATIVE) Urine Bilirubin Negative (NEGATIVE) Urine Ictotest Negative (NEGATIVE) Urine Urobilinogen 4 MG/DL (0.0-1.0) H Urine Leukocyte Esterase Negative (NEGATIVE) Urine RBC 0-2 /HPF (0 - 2) Urine WBC 5-10 /HPF (0 - 2) H Urine Squamous Epithelial Cells Occasional /LPF Urine Bacteria Few /HPF (NONE) Sodium Level 145 MMOL/L (136-145) 143 MMOL/L (136-145) Potassium Level 4.2 MMOL/L (3.5-5.1) 3.6 MMOL/L (3.5-5.1) Chloride Level 107 MMOL/L (98-107) 107 MMOL/L (98-107) Carbon Dioxide Level 23 MMOL/L (21-32) 23 MMOL/L (21-32) Anion Gap 15 mmol/L (5-15) 14 mmol/L (5-15) Blood Urea Nitrogen 25 mg/dL (7-18) H 25 mg/dL (7-18) H Creatinine 2.5 MG/DL (0.55-1.30) H 2.8 MG/DL (0.55-1.30) H Estimat Glomerular Filtration Rate mL/min (>60) mL/min (>60) Glucose Level 82 MG/DL (74-106) # 78 MG/DL (74-106) Calcium Level 7.6 MG/DL (8.5-10.1) L 7.3 MG/DL (8.5-10.1) L Total Bilirubin 1.0 MG/DL (0.2-1.0) 0.8 MG/DL (0.2-1.0) Aspartate Amino Transf (AST/SGOT) 27 U/L (15-37) 19 U/L (15-37) Alanine Aminotransferase (ALT/SGPT) 11 U/L (12-78) L 9 U/L (12-78) L Alkaline Phosphatase 117 U/L (46-116) H 109 U/L (46-116) Total Protein 6.1 G/DL (6.4-8.2) L 6.3 G/DL (6.4-8.2) L Albumin 2.6 G/DL (3.4-5.0) L 2.4 G/DL (3.4-5.0) L Globulin 3.5 g/dL 3.9 g/dL Albumin/Globulin Ratio 0.7 (1.0-2.7) L 0.6 (1.0-2.7) L White Blood Count 7.2 K/UL (4.8-10.8) # Red Blood Count 3.48 M/UL (4.20-5.40) L Hemoglobin 10.7 G/DL (12.0-16.0) L Hematocrit 33.7 % (37.0-47.0) L Mean Corpuscular Volume 97 FL (80-99) Mean Corpuscular Hemoglobin 30.9 PG (27.0-31.0) Mean Corpuscular Hemoglobin Concent 31.9 G/DL (32.0-36.0) L Red Cell Distribution Width 18.6 % (11.6-14.8) H Platelet Count 220 K/UL (150-450) Mean Platelet Volume 5.8 FL (6.5-10.1) L Neutrophils (%) (Auto) 61.1 % (45.0-75.0) Lymphocytes (%) (Auto) 22.4 % (20.0-45.0) Monocytes (%) (Auto) 12.1 % (1.0-10.0) H Eosinophils (%) (Auto) 2.5 % (0.0-3.0) Basophils (%) (Auto) 1.8 % (0.0-2.0) Hemoglobin A1c 5.2 % (4.3-6.0) Uric Acid 5.8 MG/DL (2.6-7.2) Phosphorus Level 2.7 MG/DL (2.5-4.9) Magnesium Level 2.0 MG/DL (1.8-2.4) Iron Level 40 ug/dL (50-175) L Total Iron Binding Capacity 88 ug/dL (250-450) L Percent Iron Saturation 45 % (15-50) Unsaturated Iron Binding 48 ug/dL (112-346) L Ferritin 1035 NG/ML (8-388) H Gamma Glutamyl Transpeptidase 16 U/L (5-85) Ammonia 33 umol/L (11-32) H Troponin I 0.027 ng/mL (0.000-0.056) C-Reactive Protein, Quantitative 7.8 mg/dL (0.00-0.90) H Pro-B-Type Natriuretic Peptide > 80062 pg/mL (0-125) H Triglycerides Level 103 MG/DL (30-150) Cholesterol Level 98 MG/DL (< 200) LDL Cholesterol 53 mg/dL (<100) HDL Cholesterol 33 MG/DL (40-60) L Cholesterol/HDL Ratio 3.0 (3.3-4.4) L Vitamin B12 Level 1694 PG/ML (193-986) H Folate 51.9 NG/ML (8.6-58.9) Random Vancomycin Level 14.9 ug/mL Hepatitis A IgM Antibody Pending Hepatitis B Surface Antigen Pending Hepatitis B Core IgM Antibody Pending Hepatitis C Antibody Pending Test 05/30/19 07:03 Arterial Blood pH 7.452 (7.350-7.450) Arterial Blood Partial Pressure CO2 30.0 mmHg (35.0-45.0) L Arterial Blood Partial Pressure O2 91.0 mmHg (75.0-100.0) Arterial Blood HCO3 20.5 mmol/L (22.0-26.0) L Arterial Blood Oxygen Saturation 97.2 % (95-100) Arterial Blood Base Excess -2.6 (-2-2) L Peter Test Positive Microbiology Date/Time Source Procedure Growth Status 05/29/19 03:34 Blood Blood Culture - Preliminary NO GROWTH AFTER 24 HOURS Resulted 05/29/19 03:30 Blood Blood Culture - Preliminary Resulted 05/29/19 14:00 Indwelling Cath Urine Culture - Preliminary NO GROWTH Resulted 05/29/19 04:13 Rectum Received Objective HEAD AND NECK: Positive JVD. LUNGS: Decreased breath sounds. CARDIOVASCULAR: Shows regular S1 and S2 with no gallop. Defibrillator is in the right subclavian and incision is intact. The Frankie catheter is in the left subclavian. ABDOMEN: Soft. EXTREMITIES: No pitting edema. Prosper Rao MD May 30, 2019 12:32
--- NOTE | 2019-05-30 12:57 | History & Physical ---
History and Physical History & Physicial HISTORY OF PRESENT ILLNESS: The patient is an 83-year-old female presented with worsening shortness of breath from the care home facility. The patient with end-stage renal disease on hemodialysis. The patient is noted to have worsening difficulty in breathing, was started on CPAP/BiPAP. The patient also noted to be febrile, had been vomiting. The patient was brought in for further evaluation with evidence of respiratory distress. The patient noted to have recent AICD placed one week prior. The patient is on anticoagulation. Care discussed and reviewed. The patient is admitted to the [facility] and presently with adequate acid-base exchange. The patient currently has a facial mass. The patient is noted to be hypoxemic, unable to give any history at the present time. The history is obtained from chart review, shelter notes, and ER notes. The patient's x-ray with bilateral infiltrates as well per review. PAST MEDICAL HISTORY: Notable for end-stage renal disease, on hemodialysis; coronary artery disease; AICD; cardiomyopathy, CAD, diabetes, hypertension, and dementia. MEDICATIONS: Reviewed. ALLERGIES: Reviewed. SOCIAL HISTORY: The patient is a shelter patient, currently mostly bedbound. Nonsmoker. Nondrinker. REVIEW OF SYSTEMS: Unobtainable due to the patient's present state. PHYSICAL EXAMINATION: GENERAL: The patient is a well-developed female, chronically ill, advanced age. VITAL SIGNS: Blood pressure 127/87, pulse 78, and respirations 19, sats 99% on 50%, and temperature 98.7. HEENT: Negative. The patient's extraocular movements are grossly intact. NECK: Supple. No adenopathy. LUNGS: With crackles at both bases and scattered anterior rhonchi. CARDIAC: S1, S2. Regular rate and rhythm. Soft systolic murmur. No murmur, rubs, or gallops. ABDOMEN: Soft, nontender, and nondistended. EXTREMITIES: No cyanosis or clubbing. NEUROLOGIC: Grossly nonfocal. The patient is alert, but confused. SKIN: Noted and reviewed. LABORATORY DATA: Reviewed. White count 17.8, hematocrit 45, and platelets 310,000. Arterial blood gases, 7.43 Chemistries noted, potassium 6, BUN 20, creatinine 2.2. Albumin is 3.0. BNP is significantly elevated at greater than 35,000. X-ray with bilateral infiltrates. IMPRESSION: Possible pneumonia versus fluid overload; cardiomyopathy, AICD, CAD, leukocytosis, possible sepsis, lactic acidemia, evidence of hypoxemia, hypertension and diabetes per history. RECOMMENDATIONS: Supportive care, empiric antibiotics and follow clinically, respiratory care and monitor for further changes. Hemodialysis with ultrafiltration. Monitor vital signs and hemodynamics. BiPAP p.r.n . Monitor arterial blood gas for further changes. DVT prophylaxis if no bleeding risk at present. I have been asked to assume care per her primary insurance; [facility] Hermann Martinez MD May 30, 2019 12:57
--- NOTE | 2019-05-30 13:38 | NUR ---
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 98.9 HR 76 RR 40 B/P 164/91 BIPAP 12/5 FIO2 40% WBC 17.8 K 6.0 BUN 20 CR 2.2 LACTID ACID 4.10 PH 7.43 PCO2 33.9 O2 SAT 72.3 HCO3 22.4 O2 SAT 99.4 CXR= SUSPECTED BILATERAL PLEURAL EFFUSION ABD US= GALLBLADDER SLUDGE IS: ADMITTED TO STEP DOWN STATUS STEP DOWN STATUS DCP RETURN TO THE [facility]
--- NOTE | 2019-05-30 14:57 | NUR ---
NURSE NOTES:WOUND CARE NOTES:Pt presented on admission with non-blanching erythema without induration to sacrum. Site non-tender when palpated. R heel is boggy with non-blanching erythema. Pt complained of tenderness when palpated.(L)2cm x (W)3.5cm. L heel boggy with non-blanchable erythema with an area within base of wound of wound that is purple. Site is also tender when minimally palpated. (L)3cm x (W)4cm. Purple/red discoloration noted to distal /lateral L foot and L 5th metatarsal. Pt complained of pain to slightest touch. Tx.Plan: Apply Cavilon Skin Barrier to both heels. Cover each heel with Optifoam drsg. Change every 7 days and prn. Apply Cavilon Skin Barrier to distal/lateral L foot/L 5th metatarsal. Cover with Optifoam drsg. Change every 7 days and prn. Apply Moisture Barrier Paste to Sacrum. Cover with Optifoam drsg. Change every 3 days and prn. Reposition at least every 2hours or as tolerated. Off-load heels with pillow.
[2019-05-30] MEDS: Piperacillin/Tazobactam 2.25 GM in NS 55 ML IV SCH ×2 (15:07→21:08)
[2019-05-30 16:00] VITALS: BP 124/61
[2019-05-30] MEDS ORDERED: Tubing IV Secondary IV ONE (17:47)
[2019-05-30] MEDS ORDERED: NS 500ML ONE (17:47)
--- NOTE | 2019-05-30 19:05 | NUR ---
HAND-OFF: Report given to. [facility].
--- NOTE | 2019-05-30 19:30 | NUR ---
NURSE NOTES: received patient from QUAN Garcia. patient is observed sleeping in bed, responsive to verbal commands, denies pain at this time. family is at bedside. patient is on 3 L O2 via NC, tolerating well, saturating at 100%. no s/sx of respiratory distress noted. F/C is patent and intact, draining yellow urine to gravity. LFA 22g IV site is patent and intact, asymptomatic. bed inlowest position and locked, siderails up X3, call light within reach. will continue to monitor.
[2019-05-30 20:00] VITALS: BP 117/61
--- NOTE | 2019-05-30 20:17 | Diagnostic Imaging Report ---
Indication: Reason For Exam: Shortness of breath Technique: Single AP view of the chest. Comparison: Chest radiograph dated 05/29/2019 Findings: The cardiomediastinal silhouette is is unchanged. Low lung volumes leading to bronchovascular crowding. Persistent interstitial edema with patchy bilateral perihilar and bibasilar airspace opacities. Apparent increase in left pleural effusion, which may be positional. No change in small right pleural effusion. No pneumothorax. Unchanged position of left approach tunneled dialysis catheter. Unchanged right approach ICD/pacemaker. No acute osseous abnormality. IMPRESSION: Persistent moderate pulmonary edema with apparent increase in left effusion, which may be positional.
[2019-05-30] MEDS: Carvedilol 12.5mg tab ORAL SCH (21:00)
[2019-05-31] VITALS (8 sets, daily range): BP systolic 105–142; BP diastolic 55–80
[2019-05-31] MEDS: HydrALAZINE 10mg Tab ORAL SCH ×4 (00:40→17:20)
[2019-05-31] MEDS: Piperacillin/Tazobactam 2.25 GM in NS 55 ML IV SCH ×3 (05:06→20:29)
[2019-05-31] MEDS: NovoLOG Insulin Flexpen SUBQ SCH ×4 (06:19→20:32)
--- NOTE | 2019-05-31 07:10 | NUR ---
NURSE NOTES: Received pt from QUAN Silva. Patient is A/Ox3; primarily Greenlandic speaking. Dtr is at bedside. Denies any pain or discomfort at this time. 3LNC. Breathing even and unlabored. Spo2 100%. AICD on right upper chest, A-pacing. Left upper chest Giorgio-cath noted, patient reports giorgio-cath inserted at [facility] 3 weeks ago. Dressing slightly detached, will replace with new central line dressing. No coughing noted when drinking thin liquids. Notified Dr. Malone as per request. LFA 22G connected to TKO. Bed locked, alarmed and in lowest position.
--- NOTE | 2019-05-31 07:59 | NUR ---
HAND-OFF: Report given to QUAN Santamaria. patient is in stable condition. endorsed plan of care.
--- NOTE | 2019-05-31 08:14 | General Progress Note ---
Assessment/Plan Assessment/Plan: Assessment - abnormal LFT - improved - GB sludge - resp failure - arrhythmia, s/p AICD - CAD, s/p Stent - ESRD/HD - DM - HTN Recommendations - advance to full liq diet - aspiration precautions - swallow eval pending - push po - follow LFT - f/u hepatitis serologies - elevate HOB Subjective Allergies: Coded Allergies: No Known Allergies (Unverified , 05/29/19) Subjective more awake family at bedside off BIPAP responsive d/w RN Objective Last 24 Hour Vital Signs Date Time Temp Pulse Resp B/P (MAP) Pulse Ox O2 Delivery O2 Flow Rate FiO2 05/31/19 06:18 140/78 05/31/19 04:00 79 05/31/19 04:00 98.2 82 24 140/78 (98) 100 05/31/19 04:00 3.0 05/31/19 04:00 Nasal Cannula 3.0 05/31/19 00:40 137/70 05/31/19 00:00 62 05/31/19 00:00 Nasal Cannula 3.0 05/31/19 00:00 98.6 71 24 131/74 (93) 100 05/30/19 21:00 60 117/61 05/30/19 20:00 Nasal Cannula 3.0 05/30/19 20:00 98.6 60 24 117/61 (79) 100 05/30/19 20:00 60 05/30/19 20:00 3.0 05/30/19 19:13 81 20 97 Nasal Cannula 3.0 32 05/30/19 19:13 97 Nasal Cannula 3.0 32 05/30/19 17:55 124/61 05/30/19 16:00 Nasal Cannula 3.0 05/30/19 16:00 76 05/30/19 16:00 3.0 05/30/19 16:00 98.4 77 20 124/61 (82) 100 05/30/19 12:58 85 123/75 05/30/19 12:54 123/75 05/30/19 12:00 Nasal Cannula 3.0 05/30/19 12:00 3.0 05/30/19 12:00 81 05/30/19 11:58 98.6 85 21 123/75 (91) 100 05/30/19 09:48 84 137/70 Intake and Output 05/30/19 05/31/19 19:00 07:00 Intake Total 844.163 ml 170 ml Output Total 325 ml 400 ml Balance 519.163 ml -230 ml Intake Oral 340 ml 60 ml IV Total 504.163 ml 110 ml Output Urine Total 325 ml 400 ml # Bowel Movements 2 Height (Feet): 4 Height (Inches): 10.00 Weight (Pounds): 129 Objective Elderly woman NCAT supple CTA RR abd soft ND no edema Susan Malone MD May 31, 2019 08:14
[2019-05-31] MEDS: Amiodarone 200mg tab ORAL SCH ×2 (08:21→17:20)
[2019-05-31] MEDS: Docusate 100mg cap ORAL SCH ×3 (08:21→17:21)
[2019-05-31] MEDS: Carvedilol 12.5mg tab ORAL SCH (08:22)
[2019-05-31] MEDS: Betadine 4oz Bottle TOPIC SCH (08:22)
[2019-05-31] MEDS: Vitamin A&D Oint Tube TOPIC SCH (08:22)
[2019-05-31 10:20] LABS: ANION GAP 11 mmol/L (5-15); BLOOD UREA NITROGEN 28 mg/dL (7-18); CARBON DIOXIDE 22 MMOL/L (21-32); CHLORIDE 106 MMOL/L (98-107); CREATININE 2.9 MG/DL (0.55-1.30); POTASSIUM 3.2 MMOL/L (3.5-5.1); SODIUM 139 MMOL/L (136-145)
[2019-05-31 10:33] LABS: ALANINE AMINOTRANSFERASE 9 U/L (12-78); ALBUMIN 2.4 G/DL (3.4-5.0); ALBUMIN/GLOBULIN RATIO 0.6 (1.0-2.7); ALKALINE PHOSPHATASE 104 U/L (46-116); ASPARTATE AMINO TRANSFERASE 24 U/L (15-37); BILIRUBIN,TOTAL 0.5 MG/DL (0.2-1.0); PHOSPHORUS 1.5 MG/DL (2.5-4.9)
--- NOTE | 2019-05-31 10:45 | NUR ---
NURSE NOTES: CENTRAL DRESSING KITS ON BACK ORDER. REINFORCED ALREADY EXISTING DRESSING.
--- NOTE | 2019-05-31 10:47 | Nephrology Progress Note ---
Assessment/Plan Problem List: (1) ESRD (end stage renal disease) (2) Respiratory distress (3) Urinary retention (4) Pulmonary edema (5) Cardiomyopathy Assessment Sepsis ESRD Urine outlet obst, Urinary retention CHF / cardiomyopathy Plan adjust after load reduction and BP meds K and Phos and Mag supplement 2D echo low ej fx ortiz urine studies optimize cardiac and pulmonary status Subjective ROS Limited/Unobtainable: No Constitutional: Reports: malaise Objective Objective Last 24 Hour Vital Signs Date Time Temp Pulse Resp B/P (MAP) Pulse Ox O2 Delivery O2 Flow Rate FiO2 05/31/19 09:39 99 Nasal Cannula 2.0 28 05/31/19 09:38 60 20 100 Nasal Cannula 2.0 28 05/31/19 08:22 83 143/87 05/31/19 08:00 Nasal Cannula 3.0 05/31/19 08:00 3.0 05/31/19 08:00 97.9 83 20 142/80 (100) 99 05/31/19 07:35 81 05/31/19 06:18 140/78 05/31/19 04:00 79 05/31/19 04:00 98.2 82 24 140/78 (98) 100 05/31/19 04:00 3.0 05/31/19 04:00 Nasal Cannula 3.0 05/31/19 00:40 137/70 05/31/19 00:00 62 05/31/19 00:00 Nasal Cannula 3.0 05/31/19 00:00 98.6 71 24 131/74 (93) 100 05/30/19 21:00 60 117/61 05/30/19 20:00 Nasal Cannula 3.0 05/30/19 20:00 98.6 60 24 117/61 (79) 100 05/30/19 20:00 60 05/30/19 20:00 3.0 05/30/19 19:13 81 20 97 Nasal Cannula 3.0 32 05/30/19 19:13 97 Nasal Cannula 3.0 32 05/30/19 17:55 124/61 05/30/19 16:00 Nasal Cannula 3.0 05/30/19 16:00 76 05/30/19 16:00 3.0 05/30/19 16:00 98.4 77 20 124/61 (82) 100 05/30/19 12:58 85 123/75 10/23/19 12:54 123/75 05/30/19 12:00 Nasal Cannula 3.0 05/30/19 12:00 3.0 05/30/19 12:00 81 05/30/19 11:58 98.6 85 21 123/75 (91) 100 Intake and Output 05/30/19 05/31/19 19:00 07:00 Intake Total 844.163 ml 170 ml Output Total 325 ml 400 ml Balance 519.163 ml -230 ml Intake Oral 340 ml 60 ml IV Total 504.163 ml 110 ml Output Urine Total 325 ml 400 ml # Bowel Movements 2 Laboratory Tests 05/31/19 09:20: Sodium Level 139, Potassium Level 3.2L, Chloride Level 106, Carbon Dioxide Level 22, Anion Gap 11, Blood Urea Nitrogen 28H, Creatinine 2.9H, Estimat Glomerular Filtration Rate , Glucose Level 178#H, Calcium Level 7.0L, Phosphorus Level 1.5L, Magnesium Level 1.7L, Total Bilirubin 0.5, Aspartate Amino Transf (AST/SGOT) 24, Alanine Aminotransferase (ALT/SGPT) 9L, Alkaline Phosphatase 104, C-Reactive Protein, Quantitative 4.2H, Pro-B-Type Natriuretic Peptide > 07248L, Total Protein 6.4, Albumin 2.4L, Globulin 4.0, Albumin/ Globulin Ratio 0.6L Height (Feet): 4 Height (Inches): 10.00 Weight (Pounds): 129 General Appearance: no apparent distress Cardiovascular: tachycardia Respiratory/Chest: decreased breath sounds Abdomen: distended Josep Rosales MD May 31, 2019 10:46
--- NOTE | 2019-05-31 10:53 | Pulmonology Progress Note ---
Assessment/Plan Assessment/Plan IMPRESSION: Possible pneumonia Fluid overload Cardiomyopathy, AICD CAD Leukocytosis, possible sepsis, Lactic acidemia RECOMMENDATIONS: Supportive care, empiric antibiotics and follow clinically, respiratory care and monitor for further changes. Hemodialysis with ultrafiltration. Monitor vital signs and hemodynamics. BiPAP p.r.n . Monitor arterial blood gas for further changes. DVT prophylaxis if no bleeding risk at present. I have been asked to assume care per her primary insurance; [employer] Subjective Interval Events: None new reported; on abx Constitutional: Reports: no symptoms HEENT: Repors: no symptoms Respiratory: Reports: no symptoms Cardiovascular: Reports: no symptoms Gastrointestinal/Abdominal: Reports: no symptoms Genitourinary: Reports: no symptoms Allergies: Coded Allergies: No Known Allergies (Unverified , 05/29/19) Objective Last 24 Hour Vital Signs Date Time Temp Pulse Resp B/P (MAP) Pulse Ox O2 Delivery O2 Flow Rate FiO2 05/31/19 09:39 99 Nasal Cannula 2.0 28 05/31/19 09:38 60 20 100 Nasal Cannula 2.0 28 05/31/19 08:22 83 143/87 05/31/19 08:00 Nasal Cannula 3.0 05/31/19 08:00 3.0 05/31/19 08:00 97.9 83 20 142/80 (100) 99 05/31/19 07:35 81 05/31/19 06:18 140/78 05/31/19 04:00 79 05/31/19 04:00 98.2 82 24 140/78 (98) 100 05/31/19 04:00 3.0 05/31/19 04:00 Nasal Cannula 3.0 05/31/19 00:40 137/70 05/31/19 00:00 62 05/31/19 00:00 Nasal Cannula 3.0 05/31/19 00:00 98.6 71 24 131/74 (93) 100 05/30/19 21:00 60 117/61 05/30/19 20:00 Nasal Cannula 3.0 05/30/19 20:00 98.6 60 24 117/61 (79) 100 05/30/19 20:00 60 05/30/19 20:00 3.0 05/30/19 19:13 81 20 97 Nasal Cannula 3.0 32 05/30/19 19:13 97 Nasal Cannula 3.0 32 05/30/19 17:55 124/61 05/30/19 16:00 Nasal Cannula 3.0 05/30/19 16:00 76 05/30/19 16:00 3.0 05/30/19 16:00 98.4 77 20 124/61 (82) 100 05/30/19 12:58 85 123/75 05/30/19 12:54 123/75 05/30/19 12:00 Nasal Cannula 3.0 05/30/19 12:00 3.0 05/30/19 12:00 81 05/30/19 11:58 98.6 85 21 123/75 (91) 100 Intake and Output 05/30/19 05/31/19 19:00 07:00 Intake Total 844.163 ml 170 ml Output Total 325 ml 400 ml Balance 519.163 ml -230 ml Intake Oral 340 ml 60 ml IV Total 504.163 ml 110 ml Output Urine Total 325 ml 400 ml # Bowel Movements 2 General Appearance: no acute distress HEENT: normocephalic Respiratory/Chest: chest wall non-tender, lungs clear Cardiovascular: normal peripheral pulses Abdomen: normal bowel sounds Microbiology Date/Time Source Procedure Growth Status 05/29/19 03:34 Blood Blood Culture - Preliminary NO GROWTH AFTER 48 HOURS Resulted 05/29/19 03:30 Blood Blood Culture - Preliminary Staphylococcus Sp Coag Neg Resulted 05/29/19 04:13 Nasal Nares MRSA Culture - Final NO METHICILLIN RESISTANT STAPH AUREUS... Complete 05/29/19 14:00 Indwelling Cath Urine Culture - Final NO GROWTH AFTER 48 HOURS Complete 05/29/19 04:13 Rectum VRE Culture - Final NO VANCOMYCIN RESISTANT ENTEROCOCCUS ... Complete 05/29/19 04:13 Rectum - Final NO CARBAPENEM-RESISTANT ENTEROBACTERI... Complete Laboratory Tests 05/31/19 09:20: Sodium Level 139, Potassium Level 3.2L, Chloride Level 106, Carbon Dioxide Level 22, Anion Gap 11, Blood Urea Nitrogen 28H, Creatinine 2.9H, Estimat Glomerular Filtration Rate , Glucose Level 178#H, Calcium Level 7.0L, Phosphorus Level 1.5L, Magnesium Level 1.7L, Total Bilirubin 0.5, Aspartate Amino Transf (AST/SGOT) 24, Alanine Aminotransferase (ALT/SGPT) 9L, Alkaline Phosphatase 104, C-Reactive Protein, Quantitative 4.2H, Pro-B-Type Natriuretic Peptide > 34940N, Total Protein 6.4, Albumin 2.4L, Globulin 4.0, Albumin/ Globulin Ratio 0.6L Current Medications Medications (Trade) Dose Ordered Sig/Christophe Route PRN Reason Start Time Stop Time Status Last Admin Dose Admin Acetaminophen (Tylenol) 650 mg Q4H PRN ORAL Mild Pain/Temp > 100.5 05/29/19 09:15 06/28/19 09:14 05/29/19 12:52 Amiodarone HCl (Cordarone) 400 mg BID ORAL 05/30/19 18:00 06/28/19 09:14 05/31/19 08:21 Aspirin (ASA) 325 mg DAILY ORAL 05/29/19 09:15 06/28/19 09:14 05/31/19 08:21 Bisacodyl (Dulcolax) 10 mg DAILY PRN RECTAL Constipation, LAST LINE 05/29/19 09:15 06/28/19 09:14 Carvedilol (Coreg) 25 mg EVERY 12 HOURS ORAL 05/31/19 21:00 06/29/19 20:59 UNV Clopidogrel Bisulfate (Plavix) 75 mg DAILY ORAL 05/29/19 09:15 06/28/19 09:14 05/31/19 08:21 Dextrose (Dextrose 50%) 25 ml Q30M PRN IV Hypoglycemia 05/29/19 10:00 06/28/19 09:59 Dextrose (Dextrose 50%) 50 ml Q30M PRN IV Hypoglycemia 05/29/19 10:00 06/28/19 09:59 Docusate Sodium (Colace) 100 mg THREE TIMES A DAY ORAL 05/29/19 18:00 06/28/19 17:59 05/31/19 08:21 Hydralazine HCl (Apresoline) 25 mg Q6HR ORAL 05/31/19 12:00 06/28/19 13:44 UNV Insulin Aspart (NovoLOG) BEFORE MEALS AND HS SUBQ 05/29/19 11:30 06/28/19 11:29 05/30/19 21:10 Magnesium Sulfate 100 ml @ 100 mls/hr Q1H IVPB 05/31/19 10:45 05/31/19 12:44 UNV Metolazone (Zaroxolyn) 5 mg ONCE ONCE ORAL 05/31/19 18:00 05/31/19 18:01 UNV Metolazone (Zaroxolyn) 10 mg ONCE ONCE ORAL 05/31/19 10:45 05/31/19 10:46 UNV Mineral Oil (Fleet's Mineral Oil Enema) 133 ml 3XW PRN RECTAL Constipation 05/29/19 09:15 06/28/19 09:14 Nitroglycerin (Ntg) 0.4 mg Q5MIN X 3 DOSES PRN SL CHEST PAIN 05/29/19 09:15 06/28/19 09:14 Ondansetron HCl (Zofran ODT) 4 mg Q8H PRN ORAL Nausea & Vomiting 05/29/19 09:15 06/28/19 09:14 Pantoprazole (Protonix) 40 mg BID ORAL 05/29/19 18:00 06/28/19 09:59 05/31/19 08:21 Piperacillin Sod/ Tazobactam Sod 2.25 gm/Sodium Chloride 55 ml @ 110 mls/hr Q8H IV 05/30/19 13:00 06/06/19 12:59 05/31/19 05:06 Potassium Phosphate 20 mm/ Sodium Chloride 281.6667 ml @ 46.944 m... ONCE ONCE IVPB 05/31/19 10:45 05/31/19 16:44 UNV Povidone Iodine (Betadine Shoshana) 1 applic DAILY TOPIC 05/29/19 09:15 06/28/19 09:14 05/31/19 08:22 Vancomycin HCl (Vanco rx to dose) 1 ea DAILY PRN MISC Per rx protocol 05/29/19 08:45 06/28/19 08:44 Vitamin A/Vitamin D (A & D Oint) 1 applic DAILY TOPIC 05/29/19 10:30 06/28/19 10:29 05/31/19 08:22 Zolpidem Tartrate (Ambien) 5 mg BEDTIME PRN ORAL Insomnia 05/29/19 09:15 06/05/19 09:14 Hermann Martinez MD May 31, 2019 10:53
--- NOTE | 2019-05-31 11:01 | Cardiac Electrophysiology PN ---
Assessment/Plan Assessment/Plan 1. Status post [employer] DDD defibrillator implantation at [facility] on 05/22/19. Patient had VT and ATP and then ICD shock 05/30/19. ICD interrogation confirmed the VT and appropriate therapy No further shock on Amiodarone 2. Coronary artery disease s/p DESx 2 in prox-mid RCA and ostial R PL placement on 05/19/19. S/P JOSE mid LAD and mid Cx on 05/17/19 No CP on aspirin, Plavix, and Toprol-XL 25 mg daily. 3. Ischemic cardiomyopathy. EF 35%. The patient is on lisinopril 20 mg daily and metoprolol as well as hemodialysis. 4. PAF on Amiodarone 400 bid in view of recurrent VT 5. End-stage renal disease, on hemodialysis. 6. Fever and sepsis. The patient is on vancomycin and Zosyn. The incision currently is intact. JARRED RN Subjective Subjective Had shock from ICD for VT that converted to SR. No CP or SOB.Records from [facility] obtained and reviewed in detail. No more ICD shock Objective Last 24 Hour Vital Signs Date Time Temp Pulse Resp B/P (MAP) Pulse Ox O2 Delivery O2 Flow Rate FiO2 05/31/19 09:39 99 Nasal Cannula 2.0 28 05/31/19 09:38 60 20 100 Nasal Cannula 2.0 28 05/31/19 08:22 83 143/87 05/31/19 08:00 Nasal Cannula 3.0 05/31/19 08:00 3.0 05/31/19 08:00 97.9 83 20 142/80 (100) 99 05/31/19 07:35 81 05/31/19 06:18 140/78 05/31/19 04:00 79 05/31/19 04:00 98.2 82 24 140/78 (98) 100 05/31/19 04:00 3.0 05/31/19 04:00 Nasal Cannula 3.0 05/31/19 00:40 137/70 05/31/19 00:00 62 05/31/19 00:00 Nasal Cannula 3.0 05/31/19 00:00 98.6 71 24 131/74 (93) 100 05/30/19 21:00 60 117/61 05/30/19 20:00 Nasal Cannula 3.0 10/23/19 20:00 98.6 60 24 117/61 (79) 100 05/30/19 20:00 60 05/30/19 20:00 3.0 05/30/19 19:13 81 20 97 Nasal Cannula 3.0 32 05/30/19 19:13 97 Nasal Cannula 3.0 32 05/30/19 17:55 124/61 05/30/19 16:00 Nasal Cannula 3.0 05/30/19 16:00 76 05/30/19 16:00 3.0 05/30/19 16:00 98.4 77 20 124/61 (82) 100 05/30/19 12:58 85 123/75 05/30/19 12:54 123/75 05/30/19 12:00 Nasal Cannula 3.0 05/30/19 12:00 3.0 05/30/19 12:00 81 05/30/19 11:58 98.6 85 21 123/75 (91) 100 Intake and Output 05/30/19 05/31/19 19:00 07:00 Intake Total 844.163 ml 170 ml Output Total 325 ml 400 ml Balance 519.163 ml -230 ml Intake Oral 340 ml 60 ml IV Total 504.163 ml 110 ml Output Urine Total 325 ml 400 ml # Bowel Movements 2 Laboratory Tests Test 05/31/19 09:20 Sodium Level 139 MMOL/L (136-145) Potassium Level 3.2 MMOL/L (3.5-5.1) L Chloride Level 106 MMOL/L (98-107) Carbon Dioxide Level 22 MMOL/L (21-32) Anion Gap 11 mmol/L (5-15) Blood Urea Nitrogen 28 mg/dL (7-18) H Creatinine 2.9 MG/DL (0.55-1.30) H Estimat Glomerular Filtration Rate mL/min (>60) Glucose Level 178 MG/DL (74-106) #H Calcium Level 7.0 MG/DL (8.5-10.1) L Phosphorus Level 1.5 MG/DL (2.5-4.9) L Magnesium Level 1.7 MG/DL (1.8-2.4) L Total Bilirubin 0.5 MG/DL (0.2-1.0) Aspartate Amino Transf (AST/SGOT) 24 U/L (15-37) Alanine Aminotransferase (ALT/SGPT) 9 U/L (12-78) L Alkaline Phosphatase 104 U/L (46-116) C-Reactive Protein, Quantitative 4.2 mg/dL (0.00-0.90) H Pro-B-Type Natriuretic Peptide > 64086 pg/mL (0-125) H Total Protein 6.4 G/DL (6.4-8.2) Albumin 2.4 G/DL (3.4-5.0) L Globulin 4.0 g/dL Albumin/Globulin Ratio 0.6 (1.0-2.7) L Microbiology Date/Time Source Procedure Growth Status 05/29/19 03:34 Blood Blood Culture - Preliminary NO GROWTH AFTER 48 HOURS Resulted 05/29/19 03:30 Blood Blood Culture - Preliminary Staphylococcus Sp Coag Neg Resulted 05/29/19 04:13 Nasal Nares MRSA Culture - Final NO METHICILLIN RESISTANT STAPH AUREUS... Complete 05/29/19 14:00 Indwelling Cath Urine Culture - Final NO GROWTH AFTER 48 HOURS Complete 05/29/19 04:13 Rectum VRE Culture - Final NO VANCOMYCIN RESISTANT ENTEROCOCCUS ... Complete 05/29/19 04:13 Rectum - Final NO CARBAPENEM-RESISTANT ENTEROBACTERI... Complete Objective HEAD AND NECK: Positive JVD. LUNGS: Decreased breath sounds. CARDIOVASCULAR: Shows regular S1 and S2 with no gallop. Defibrillator is in the right subclavian and incision is intact. The Frankie catheter is in the left subclavian. ABDOMEN: Soft. EXTREMITIES: No pitting edema. Prosper Rao MD May 31, 2019 11:01
--- NOTE | 2019-05-31 11:46 | NUR ---
DROP WIRE ALINERLEAD RELAY TESTER SI: PULMONARY EDEMA,ESRD T. 97.9 HR 83 RR 20 B/P 142/80 3L NC O2 SAT @ 98% K 3.2 BUN 28 CR 2.9 BNP>3500 IS: K-PHOS IV MAGNESIUM IV ZOSYN IV STEP DOWN STATUS
[2019-05-31] MEDS ORDERED: Potassium Phosphate 20 MM in NS 275 ML IV ONE (13:00)
--- NOTE | 2019-05-31 13:36 | NUR ---
*-* INSURANCE *-* ALL AVAILABLE CLINICALS HAVE BEEN FAXED TO [employer]#[id number] KAVEH; Carolann #[phone]
--- NOTE | 2019-05-31 15:08 | NUR ---
RD ASSESSMENT & RECOMMENDATIONS SEE CARE ACTIVITY FOR COMPLETE ASSESSMENT DAILY ESTIMATED NEEDS: Needs based on ESRD, on HD, wounds/ 47kg abw 30-35 kcals/kg 4810-3841 total kcals 1.25-1.8 g protein/kg 59-85 g total protein 20-22 mL/kg 940-1034 total fluid mLs NUTRITION DIAGNOSIS: Increased kcal/prot needs R/T ESRD as evidenced by pt HD dependent CURRENT DIET:FULL LIQUID PO DIET RECOMMENDATIONS: RENAL/ texture per GUIDE DOG INSTRUCTOR ADDITIONAL RECOMMENDATIONS: * Calibrated bedscale wt for accurate CBW * Monitor lytes, replete as needed (low K, phos, and mag) * Nepro BID in b/w meals * Monitor BGs, need for carb controlled diet/ hypoglycemics * Nephrovite x 1
--- NOTE | 2019-05-31 15:41 | Infectious Diseases Prog Note ---
Assessment/Plan Assessment/Plan IMPRESSION: 1. Sepsis or systemic inflammatory response syndrome. 2. Congestion, ? pneumonia 3. Hypoxemic respiratory failure. 4. Hyperkalemia. 5. Lactic acidosis. 6. End-stage renal disease on hemodialysis. 7. Diabetes mellitus type 2. 8. Congestive heart failure. 9. Hypertension. 10. Hyperlipidemia. 11. Bacteremia RECOMMENDATION: We will continue with Zosyn and vancomycin. We will follow up the cultures. Subjective ROS Limited/Unobtainable: Yes Constitutional: Reports: no symptoms Respiratory: Reports: no symptoms Musculoskeletal: Reports: no symptoms Allergies: Coded Allergies: No Known Allergies (Unverified , 05/29/19) Objective Vital Signs Last 24 Hour Vital Signs Date Time Temp Pulse Resp B/P (MAP) Pulse Ox O2 Delivery O2 Flow Rate FiO2 05/31/19 12:00 3.0 05/31/19 12:00 98.1 81 18 118/71 (87) 100 05/31/19 12:00 Nasal Cannula 3.0 05/31/19 11:37 78 05/31/19 11:25 143/87 05/31/19 09:39 99 Nasal Cannula 2.0 28 05/31/19 09:38 60 20 100 Nasal Cannula 2.0 28 05/31/19 08:22 83 143/87 05/31/19 08:00 Nasal Cannula 3.0 05/31/19 08:00 3.0 05/31/19 08:00 97.9 83 20 142/80 (100) 99 05/31/19 07:35 81 05/31/19 06:18 140/78 05/31/19 04:00 79 05/31/19 04:00 98.2 82 24 140/78 (98) 100 05/31/19 04:00 3.0 05/31/19 04:00 Nasal Cannula 3.0 05/31/19 00:40 137/70 05/31/19 00:00 62 05/31/19 00:00 Nasal Cannula 3.0 05/31/19 00:00 98.6 71 24 131/74 (93) 100 05/30/19 21:00 60 117/61 05/30/19 20:00 Nasal Cannula 3.0 05/30/19 20:00 98.6 60 24 117/61 (79) 100 05/30/19 20:00 60 05/30/19 20:00 3.0 05/30/19 19:13 81 20 97 Nasal Cannula 3.0 32 05/30/19 19:13 97 Nasal Cannula 3.0 32 05/30/19 17:55 124/61 05/30/19 16:00 Nasal Cannula 3.0 05/30/19 16:00 76 05/30/19 16:00 3.0 05/30/19 16:00 98.4 77 20 124/61 (82) 100 Height (Feet): 4 Height (Inches): 10.00 Weight (Pounds): 129 General Appearance: no acute distress HEENT: mucous membranes moist Respiratory/Chest: lungs clear Cardiovascular: normal rate, pacemaker/AICD, other Abdomen: soft, non tender Extremities: no edema Neurologic/Psychiatric: alert, responsive Microbiology Date/Time Source Procedure Growth Status 05/29/19 03:34 Blood Blood Culture - Preliminary NO GROWTH AFTER 48 HOURS Resulted 05/29/19 03:30 Blood Blood Culture - Preliminary Staphylococcus Sp Coag Neg Resulted 05/29/19 04:13 Nasal Nares MRSA Culture - Final NO METHICILLIN RESISTANT STAPH AUREUS... Complete 05/29/19 14:00 Indwelling Cath Urine Culture - Final NO GROWTH AFTER 48 HOURS Complete 05/29/19 04:13 Rectum VRE Culture - Final NO VANCOMYCIN RESISTANT ENTEROCOCCUS ... Complete 05/29/19 04:13 Rectum - Final NO CARBAPENEM-RESISTANT ENTEROBACTERI... Complete Laboratory Tests Test 05/31/19 09:20 Sodium Level 139 MMOL/L (136-145) Potassium Level 3.2 MMOL/L (3.5-5.1) L Chloride Level 106 MMOL/L (98-107) Carbon Dioxide Level 22 MMOL/L (21-32) Anion Gap 11 mmol/L (5-15) Blood Urea Nitrogen 28 mg/dL (7-18) H Creatinine 2.9 MG/DL (0.55-1.30) H Estimat Glomerular Filtration Rate mL/min (>60) Glucose Level 178 MG/DL (74-106) #H Calcium Level 7.0 MG/DL (8.5-10.1) L Phosphorus Level 1.5 MG/DL (2.5-4.9) L Magnesium Level 1.7 MG/DL (1.8-2.4) L Total Bilirubin 0.5 MG/DL (0.2-1.0) Aspartate Amino Transf (AST/SGOT) 24 U/L (15-37) Alanine Aminotransferase (ALT/SGPT) 9 U/L (12-78) L Alkaline Phosphatase 104 U/L (46-116) C-Reactive Protein, Quantitative 4.0 mg/dL (0.00-0.90) H Pro-B-Type Natriuretic Peptide > 11557 pg/mL (0-125) H Total Protein 6.4 G/DL (6.4-8.2) Albumin 2.4 G/DL (3.4-5.0) L Globulin 4.0 g/dL Albumin/Globulin Ratio 0.6 (1.0-2.7) L Current Medications Medications (Trade) Dose Ordered Sig/Christophe Route PRN Reason Start Time Stop Time Status Last Admin Dose Admin Acetaminophen (Tylenol) 650 mg Q4H PRN ORAL Mild Pain/Temp > 100.5 05/29/19 09:15 06/28/19 09:14 05/29/19 12:52 Amiodarone HCl (Cordarone) 400 mg BID ORAL 05/30/19 18:00 06/28/19 09:14 05/31/19 08:21 Aspirin (ASA) 325 mg DAILY ORAL 05/29/19 09:15 06/28/19 09:14 05/31/19 08:21 Bisacodyl (Dulcolax) 10 mg DAILY PRN RECTAL Constipation, LAST LINE 05/29/19 09:15 06/28/19 09:14 Carvedilol (Coreg) 25 mg EVERY 12 HOURS ORAL 05/31/19 21:00 06/29/19 20:59 Clopidogrel Bisulfate (Plavix) 75 mg DAILY ORAL 05/29/19 09:15 06/28/19 09:14 05/31/19 08:21 Dextrose (Dextrose 50%) 25 ml Q30M PRN IV Hypoglycemia 05/29/19 10:00 06/28/19 09:59 Dextrose (Dextrose 50%) 50 ml Q30M PRN IV Hypoglycemia 05/29/19 10:00 06/28/19 09:59 Docusate Sodium (Colace) 100 mg THREE TIMES A DAY ORAL 05/29/19 18:00 06/28/19 17:59 05/31/19 12:48 Hydralazine HCl (Apresoline) 25 mg Q6HR ORAL 05/31/19 12:00 06/28/19 13:44 05/31/19 11:25 Insulin Aspart (NovoLOG) BEFORE MEALS AND HS SUBQ 05/29/19 11:30 06/28/19 11:29 05/30/19 21:10 Metolazone (Zaroxolyn) 5 mg ONCE ORAL 05/31/19 18:00 05/31/19 19:00 Mineral Oil (Fleet's Mineral Oil Enema) 133 ml 3XW PRN RECTAL Constipation 05/29/19 09:15 06/28/19 09:14 Nitroglycerin (Ntg) 0.4 mg Q5MIN X 3 DOSES PRN SL CHEST PAIN 05/29/19 09:15 06/28/19 09:14 Ondansetron HCl (Zofran ODT) 4 mg Q8H PRN ORAL Nausea & Vomiting 05/29/19 09:15 06/28/19 09:14 Pantoprazole (Protonix) 40 mg BID ORAL 05/29/19 18:00 06/28/19 09:59 05/31/19 08:21 Piperacillin Sod/ Tazobactam Sod 2.25 gm/Sodium Chloride 55 ml @ 110 mls/hr Q8H IV 05/30/19 13:00 06/06/19 12:59 05/31/19 12:48 Potassium Phosphate 20 mm/ Sodium Chloride 281.6667 ml @ 46.944 m... ONCE ONCE IV 05/31/19 13:00 05/31/19 18:59 05/31/19 12:48 Povidone Iodine (Betadine Shoshana) 1 applic DAILY TOPIC 05/29/19 09:15 06/28/19 09:14 05/31/19 08:22 Vancomycin HCl (Vanco rx to dose) 1 ea DAILY PRN MISC Per rx protocol 05/29/19 08:45 06/28/19 08:44 Vitamin A/Vitamin D (A & D Oint) 1 applic DAILY TOPIC 05/29/19 10:30 06/28/19 10:29 05/31/19 08:22 Zolpidem Tartrate (Ambien) 5 mg BEDTIME PRN ORAL Insomnia 05/29/19 09:15 06/05/19 09:14 William Dailey MD May 31, 2019 15:41
--- NOTE | 2019-05-31 17:33 | Consultation ---
History of Present Illness General Date patient seen: May 31, 2019 Chief Complaint: Dyspnea/Respdistress Present Illness HPI 83F with multiple medical comorbidites who is a alf resident presented with SOB and respiratory insufficiency. Admitted for medical care and management. on admission noted to have multiple wounds requiring care, leukocytosis, abnormal labs. surgery called to evaluate and assist with care. patient seen, chart reviewed, patient examined. Allergies: Coded Allergies: No Known Allergies (Unverified , 05/29/19) Medication History Scheduled Amiodarone Hcl (Amiodarone Hcl), 200 MG ORAL BID, (Reported) Aspirin* (Aspirin*), 325 MG ORAL DAILY, (Reported) Clopidogrel Bisulfate* (Plavix*), 75 MG ORAL DAILY, (Reported) Esomeprazole Magnesium (Nexium), 40 MG ORAL DAILY, (Reported) Lisinopril (Lisinopril*), 2.5 MG ORAL DAILY, (Reported) Metoprolol Succinate* (Metoprolol Succinate*), 25 MG ORAL DAILY, (Reported) Povidone-Iodine (Betadine), 10 % TP DAILY, (Reported) Vit B Cmplx 3/Fa/Vit C/Biotin ([place] Rx Tablet), 1 EACH PO DAILY, (Reported) Vitamins A and D (Vitamin A And D), 113 GM TP EVERY SHIFT, (Reported) Scheduled PRN Acetaminophen* (Acetaminophen 325MG Tablet*), 650 MG ORAL Q4H PRN for Mild Pain/ Temp > 100.5, (Reported) Bisacodyl (Bisacodyl), 10 MG RC QD PRN for Constipation, (Reported) Magnesium Hydroxide (Milk of Magnesia), 30 ML ORAL Q8HR PRN for Constipation, ( Reported) Mineral Oil (Mineral Oil Enema), 133 ML RC for Constipation, (Reported) Nitroglycerin 0.4MG table* (Nitroglycerin*), 0.4 MG SL .Q5MIN X 3 DOSES PRN for CHEST PAIN, (Reported) Ondansetron Odt* (Zofran Odt*), 4 MG ORAL Q8H PRN for Nausea & Vomiting, ( Reported) Zolpidem Tartrate* (Ambien*), 5 MG ORAL BEDTIME PRN for Insomnia, (Reported) Miscellaneous Medications Insulin Lispro (Humalog), Unknown Dose SUBQ, (Reported) [Calazime], (Reported) Patient History Limited by: medical condition History Provided By: Medical Record, PMD Healthcare decision maker gilbert guzman. Resuscitation status Full Code Advanced Directive on File No Past Medical/Surgical History Past Medical/Surgical History: (1) CAD (coronary artery disease) (2) Respiratory distress (3) Pulmonary edema (4) Bilateral pulmonary infiltrates on CXR (5) ESRD (end stage renal disease) (6) Cardiomyopathy (7) Urinary retention Review of Systems All Other Systems: negative except mentioned in HPI ROS Narrative unable to obtain given medical condition Physical Exam General Appearance: no apparent distress Lines, tubes and drains: peripheral HEENT: mucous membranes moist Neck: normal inspection Respiratory/Chest: decreased breath sounds Cardiovascular/Chest: normal rate Abdomen: soft, no organomegaly, no mass, other Extremities: normal inspection, other Skin Exam: warm/dry Last 24 Hour Vital Signs Date Time Temp Pulse Resp B/P (MAP) Pulse Ox O2 Delivery O2 Flow Rate FiO2 05/31/19 17:20 124/60 05/31/19 17:00 60 18 113/64 (80) 100 05/31/19 16:00 98.0 60 18 107/60 (76) 100 05/31/19 16:00 3.0 05/31/19 16:00 Nasal Cannula 3.0 05/31/19 16:00 60 05/31/19 12:00 3.0 05/31/19 12:00 98.1 81 18 118/71 (87) 100 05/31/19 12:00 Nasal Cannula 3.0 05/31/19 11:37 78 05/31/19 11:25 143/87 05/31/19 09:39 99 Nasal Cannula 2.0 28 05/31/19 09:38 60 20 100 Nasal Cannula 2.0 28 05/31/19 08:22 83 143/87 05/31/19 08:00 Nasal Cannula 3.0 05/31/19 08:00 3.0 05/31/19 08:00 97.9 83 20 142/80 (100) 99 05/31/19 07:35 81 05/31/19 06:18 140/78 05/31/19 04:00 79 05/31/19 04:00 98.2 82 24 140/78 (98) 100 05/31/19 04:00 3.0 05/31/19 04:00 Nasal Cannula 3.0 05/31/19 00:40 137/70 05/31/19 00:00 62 05/31/19 00:00 Nasal Cannula 3.0 05/31/19 00:00 98.6 71 24 131/74 (93) 100 05/30/19 21:00 60 117/61 05/30/19 20:00 Nasal Cannula 3.0 05/30/19 20:00 98.6 60 24 117/61 (79) 100 05/30/19 20:00 60 05/30/19 20:00 3.0 05/30/19 19:13 81 20 97 Nasal Cannula 3.0 32 05/30/19 19:13 97 Nasal Cannula 3.0 32 05/30/19 17:55 124/61 Intake and Output 05/30/19 05/31/19 18:59 06:59 Intake Total 964.329 ml 170 ml Output Total 325 ml 400 ml Balance 639.329 ml -230 ml Intake Oral 440 ml 60 ml IV Total 524.329 ml 110 ml Output Urine Total 325 ml 400 ml # Bowel Movements 2 Laboratory Tests Test 05/31/19 09:20 Sodium Level 139 MMOL/L (136-145) Potassium Level 3.2 MMOL/L (3.5-5.1) L Chloride Level 106 MMOL/L (98-107) Carbon Dioxide Level 22 MMOL/L (21-32) Anion Gap 11 mmol/L (5-15) Blood Urea Nitrogen 28 mg/dL (7-18) H Creatinine 2.9 MG/DL (0.55-1.30) H Estimat Glomerular Filtration Rate mL/min (>60) Glucose Level 178 MG/DL (74-106) #H Calcium Level 7.0 MG/DL (8.5-10.1) L Phosphorus Level 1.5 MG/DL (2.5-4.9) L Magnesium Level 1.7 MG/DL (1.8-2.4) L Total Bilirubin 0.5 MG/DL (0.2-1.0) Aspartate Amino Transf (AST/SGOT) 24 U/L (15-37) Alanine Aminotransferase (ALT/SGPT) 9 U/L (12-78) L Alkaline Phosphatase 104 U/L (46-116) C-Reactive Protein, Quantitative 4.0 mg/dL (0.00-0.90) H Pro-B-Type Natriuretic Peptide > 30337 pg/mL (0-125) H Total Protein 6.4 G/DL (6.4-8.2) Albumin 2.4 G/DL (3.4-5.0) L Globulin 4.0 g/dL Albumin/Globulin Ratio 0.6 (1.0-2.7) L Height (Feet): 4 Height (Inches): 10.00 Weight (Pounds): 129 Medications Current Medications Medications (Trade) Dose Ordered Sig/Christophe Route PRN Reason Start Time Stop Time Status Last Admin Dose Admin Acetaminophen (Tylenol) 650 mg Q4H PRN ORAL Mild Pain/Temp > 100.5 05/29/19 09:15 06/28/19 09:14 05/29/19 12:52 Amiodarone HCl (Cordarone) 400 mg BID ORAL 05/30/19 18:00 06/28/19 09:14 05/31/19 17:20 Aspirin (ASA) 325 mg DAILY ORAL 05/29/19 09:15 06/28/19 09:14 05/31/19 08:21 Bisacodyl (Dulcolax) 10 mg DAILY PRN RECTAL Constipation, LAST LINE 05/29/19 09:15 06/28/19 09:14 Carvedilol (Coreg) 25 mg EVERY 12 HOURS ORAL 05/31/19 21:00 06/29/19 20:59 Clopidogrel Bisulfate (Plavix) 75 mg DAILY ORAL 05/29/19 09:15 06/28/19 09:14 05/31/19 08:21 Dextrose (Dextrose 50%) 25 ml Q30M PRN IV Hypoglycemia 05/29/19 10:00 06/28/19 09:59 Dextrose (Dextrose 50%) 50 ml Q30M PRN IV Hypoglycemia 05/29/19 10:00 06/28/19 09:59 Docusate Sodium (Colace) 100 mg THREE TIMES A DAY ORAL 05/29/19 18:00 06/28/19 17:59 05/31/19 17:21 Hydralazine HCl (Apresoline) 25 mg Q6HR ORAL 05/31/19 12:00 06/28/19 13:44 05/31/19 17:20 Insulin Aspart (NovoLOG) BEFORE MEALS AND HS SUBQ 05/29/19 11:30 06/28/19 11:29 05/31/19 17:18 Metolazone (Zaroxolyn) 5 mg ONCE ORAL 05/31/19 18:00 05/31/19 19:00 05/31/19 17:20 Mineral Oil (Fleet's Mineral Oil Enema) 133 ml 3XW PRN RECTAL Constipation 05/29/19 09:15 06/28/19 09:14 Nitroglycerin (Ntg) 0.4 mg Q5MIN X 3 DOSES PRN SL CHEST PAIN 05/29/19 09:15 06/28/19 09:14 Ondansetron HCl (Zofran ODT) 4 mg Q8H PRN ORAL Nausea & Vomiting 05/29/19 09:15 06/28/19 09:14 Pantoprazole (Protonix) 40 mg BID ORAL 05/29/19 18:00 06/28/19 09:59 05/31/19 17:20 Piperacillin Sod/ Tazobactam Sod 2.25 gm/Sodium Chloride 55 ml @ 110 mls/hr Q8H IV 05/30/19 13:00 06/06/19 12:59 05/31/19 12:48 Potassium Phosphate 20 mm/ Sodium Chloride 281.6667 ml @ 46.944 m... ONCE ONCE IV 05/31/19 13:00 05/31/19 18:59 05/31/19 12:48 Povidone Iodine (Betadine Shoshana) 1 applic DAILY TOPIC 05/29/19 09:15 06/28/19 09:14 05/31/19 08:22 Vitamin A/Vitamin D (A & D Oint) 1 applic DAILY TOPIC 05/29/19 10:30 06/28/19 10:29 05/31/19 08:22 Zolpidem Tartrate (Ambien) 5 mg BEDTIME PRN ORAL Insomnia 05/29/19 09:15 06/05/19 09:14 Assessment/Plan Problem List: (1) Sacral decubitus ulcer Assessment & Plan: Pt presented on admission with non-blanching erythema without induration to sacrum. Site non-tender when palpated. R heel is boggy with non-blanching erythema. Pt complained of tenderness when palpated.(L)2cm x (W)3.5cm. L heel boggy with non-blanchable erythema with an area within base of wound of wound that is purple. Site is also tender when minimally palpated. (L)3cm x (W) 4cm. Purple/red discoloration noted to distal /lateral L foot and L 5th metatarsal. Pt complained of pain to slightest touch. Tx.Plan: Apply Cavilon Skin Barrier to both heels. Cover each heel with Optifoam drsg. Change every 7 days and prn. Apply Cavilon Skin Barrier to distal/lateral L foot/L 5th metatarsal. Cover with Optifoam drsg. Change every 7 days and prn. Apply Moisture Barrier Paste to Sacrum. Cover with Optifoam drsg. Change every 3 days and prn. Reposition at least every 2hours or as tolerated. Off-load heels with pillow. ICD Codes: L89.159 - Pressure ulcer of sacral region, unspecified stage SNOMED: 864821472 (2) Malnutrition Assessment & Plan: DAILY ESTIMATED NEEDS: Needs based on ESRD, on HD, wounds/ 47kg abw 30-35 kcals/kg 2869-2805 total kcals 1.25-1.8 g protein/kg 59-85 g total protein 20-22 mL/kg 940-1034 total fluid mLs NUTRITION DIAGNOSIS: Increased kcal/prot needs R/T ESRD as evidenced by pt HD dependent CURRENT DIET:FULL LIQUID PO DIET RECOMMENDATIONS: RENAL/ texture per DIRECTOR CHECK ADDITIONAL RECOMMENDATIONS: * Calibrated bedscale wt for accurate CBW * Monitor lytes, replete as needed (low K, phos, and mag) * Nepro BID in b/w meals * Monitor BGs, need for carb controlled diet/ hypoglycemics * Nephrovite x 1 ICD Codes: E46 - Unspecified protein-calorie malnutrition SNOMED: [id number] Chris Avila May 31, 2019 17:33
--- NOTE | 2019-05-31 17:59 | NUR ---
NURSE NOTES: Patient c/o increased SOB. Notified Dr. Martinez, said to contact Dr. Rosales for possible HD today. Awaiting for call back. Addendum: 05/31/19 at 1803 by JODEE MCMAHON RN SPO2 100%, labored breathing noted, BP stable, AV pacing on inspector general.
--- NOTE | 2019-05-31 18:37 | NUR ---
NURSE NOTES: Received orders for STAT ABG, notified Dr. Rosales. Awaiting for reply.
--- NOTE | 2019-05-31 18:48 | NUR ---
NURSE NOTES: Paged Dr. Martinez to notifiy him of ABG results, as it shows hyperventilation and if he wants any anti-anxiety medications. Awaiting for call back.
--- NOTE | 2019-05-31 18:53 | NUR ---
NURSE NOTES: Dr. Rosales called back, said he will put orders for Hemodialysis tonight.
--- NOTE | 2019-05-31 19:01 | NUR ---
NURSE NOTES: HD consent obtained by daughter who is at bedside. Charge nurse called [facility] to confirm, spoke to Patel. Will need F/U with NOC shift. Patient reports less SOB and denies CP.
--- NOTE | 2019-05-31 19:07 | NUR ---
NURSE NOTES: Talked to Bertin from [facility], said probably will be here [id number].
--- NOTE | 2019-05-31 19:30 | NUR ---
HAND-OFF: Report given to QUAN Denton.
--- NOTE | 2019-05-31 19:31 | NUR ---
NURSE NOTES: Received patient from QUAN Montalvo. Pt is AAOx3, [place] speaking with family at bed side and no signs of acute distress. Pt is in bed. Pt is on 3l NC, watching TV, with ortiz in place and draining. Skin issues noted, IV site paten intact. Pt on monitoring analyst. No edema noted. Pt in bed with bed at its lowest position, X3 bed rails up, and bed alarm on.
[2019-05-31] MEDS: Carvedilol 25mg Tab ORAL SCH (21:00)
--- NOTE | 2019-05-31 21:00 | NUR ---
NURSE NOTES: Pt had small BM. Pt family at bedside demanded that I clean her right now. Pt was cleaned after medication administration and sacral dressing changed. Pt family visibly upset when I cleaned pt. No new skin issued noted.
--- NOTE | 2019-05-31 21:30 | NUR ---
NURSE NOTES: Pt family asked to put patient on Bipap. When the RT placed Bipap on the pt the pt refused. Family members were notified and pt was placed back on 3L NC.
--- NOTE | 2019-05-31 23:55 | NUR ---
NURSE NOTES: Pt resting well with family member sleeping at bed side.
[2019-06-01] MEDS: HydrALAZINE 10mg Tab ORAL SCH ×4 (00:13→17:16)
[2019-06-01 04:00] VITALS: BP 151/72
[2019-06-01 04:45] LABS: BASOPHILS % (AUTO) 1.8 % (0.0-2.0); EOSINOPHILS % (AUTO) 2.5 % (0.0-3.0); HEMATOCRIT 30.8 % (37.0-47.0); HEMOGLOBIN 9.7 G/DL (12.0-16.0); LYMPHOCYTES % (AUTO) 22.3 % (20.0-45.0); MEAN CORPUSCULAR VOLUME 97 FL (80-99); MONOCYTES % (AUTO) 10.8 % (1.0-10.0); NEUTROPHILS % (AUTO) 62.6 % (45.0-75.0); PLATELET COUNT 185 K/UL (150-450); RED BLOOD COUNT 3.17 M/UL (4.20-5.40); RED CELL DISTRIBUTION WIDTH 17.9 % (11.6-14.8); WHITE BLOOD COUNT 7.4 K/UL (4.8-10.8)
--- NOTE | 2019-06-01 05:02 | NUR ---
NURSE NOTES: Pt IV medication will be held until after dialysis. Charge nurse informed.
[2019-06-01 05:14] LABS: ALANINE AMINOTRANSFERASE 6 U/L (12-78); ALBUMIN 2.3 G/DL (3.4-5.0); ALBUMIN/GLOBULIN RATIO 0.6 (1.0-2.7); ALKALINE PHOSPHATASE 93 U/L (46-116); ANION GAP 12 mmol/L (5-15); ASPARTATE AMINO TRANSFERASE 21 U/L (15-37); BILIRUBIN,TOTAL 0.5 MG/DL (0.2-1.0); BLOOD UREA NITROGEN 27 mg/dL (7-18); CALCIUM 6.9 MG/DL (8.5-10.1); CARBON DIOXIDE 22 MMOL/L (21-32); CHLORIDE 107 MMOL/L (98-107); CREATININE 2.8 MG/DL (0.55-1.30); PHOSPHORUS 2.6 MG/DL (2.5-4.9); POTASSIUM 3.6 MMOL/L (3.5-5.1); SODIUM 140 MMOL/L (136-145)
[2019-06-01] MEDS: Piperacillin/Tazobactam 2.25 GM in NS 55 ML IV SCH ×3 (06:23→20:22)
[2019-06-01] MEDS: NovoLOG Insulin Flexpen SUBQ SCH ×4 (06:25→21:00)
--- NOTE | 2019-06-01 07:13 | Pulmonology Progress Note ---
Assessment/Plan Assessment/Plan IMPRESSION: Possible pneumonia Fluid overload Cardiomyopathy, AICD CAD Leukocytosis, possible sepsis, Lactic acidemia RECOMMENDATIONS: Supportive care, empiric antibiotics and follow clinically, respiratory care and monitor for further changes. Hemodialysis with ultrafiltration. Monitor vital signs and hemodynamics. BiPAP p.r.n . Monitor arterial blood gas for further changes. DVT prophylaxis if no bleeding risk at present. I have been asked to assume care per her primary insurance; [facility] Dialysis per renal Subjective Interval Events: Saturating well on 3L/min Constitutional: Reports: no symptoms HEENT: Repors: no symptoms Respiratory: Reports: no symptoms Cardiovascular: Reports: no symptoms Gastrointestinal/Abdominal: Reports: no symptoms Allergies: Coded Allergies: No Known Allergies (Unverified , 05/29/19) Objective Last 24 Hour Vital Signs Date Time Temp Pulse Resp B/P (MAP) Pulse Ox O2 Delivery O2 Flow Rate FiO2 06/01/19 06:24 136/70 06/01/19 04:00 Nasal Cannula 3.0 06/01/19 04:00 97.6 68 14 151/72 (98) 100 06/01/19 04:00 60 06/01/19 04:00 3.0 06/01/19 00:13 125/65 06/01/19 00:00 Nasal Cannula 3.0 05/31/19 23:54 3.0 05/31/19 23:52 62 05/31/19 23:46 98.1 56 18 125/65 (85) 98 05/31/19 21:00 60 105/55 05/31/19 20:00 Nasal Cannula 3.0 05/31/19 20:00 97.8 60 21 105/55 (72) 100 05/31/19 20:00 62 05/31/19 20:00 3.0 05/31/19 19:04 57 24 99 Nasal Cannula 2.0 28 05/31/19 19:04 99 Nasal Cannula 2.0 28 05/31/19 17:20 124/60 05/31/19 17:00 60 18 113/64 (80) 100 05/31/19 16:00 98.0 60 18 107/60 (76) 100 05/31/19 16:00 3.0 05/31/19 16:00 Nasal Cannula 3.0 05/31/19 16:00 60 05/31/19 12:00 3.0 05/31/19 12:00 98.1 81 18 118/71 (87) 100 05/31/19 12:00 Nasal Cannula 3.0 05/31/19 11:37 78 05/31/19 11:25 143/87 05/31/19 09:39 99 Nasal Cannula 2.0 28 05/31/19 09:38 60 20 100 Nasal Cannula 2.0 28 05/31/19 08:22 83 143/87 05/31/19 08:00 Nasal Cannula 3.0 05/31/19 08:00 3.0 05/31/19 08:00 97.9 83 20 142/80 (100) 99 05/31/19 07:35 81 Intake and Output 05/31/19 06/01/19 19:00 07:00 Intake Total 120 ml 305 ml Output Total 300 ml 210 ml Balance -180 ml 95 ml Intake Oral 120 ml 250 ml IV Total 55 ml Output Urine Total 300 ml 210 ml # Bowel Movements 4 General Appearance: no acute distress HEENT: normocephalic Respiratory/Chest: chest wall non-tender, lungs clear Cardiovascular: normal peripheral pulses, normal rate Abdomen: normal bowel sounds Microbiology Date/Time Source Procedure Growth Status 05/29/19 14:00 Indwelling Cath Urine Culture - Final NO GROWTH AFTER 48 HOURS Complete Laboratory Tests 05/31/19 09:20: Sodium Level 139, Potassium Level 3.2L, Chloride Level 106, Carbon Dioxide Level 22, Anion Gap 11, Blood Urea Nitrogen 28H, Creatinine 2.9H, Estimat Glomerular Filtration Rate , Glucose Level 178#H, Calcium Level 7.0L, Phosphorus Level 1.5L, Magnesium Level 1.7L, Total Bilirubin 0.5, Aspartate Amino Transf (AST/SGOT) 24, Alanine Aminotransferase (ALT/SGPT) 9L, Alkaline Phosphatase 104, C-Reactive Protein, Quantitative 4.0H, Pro-B-Type Natriuretic Peptide > 03912E, Total Protein 6.4, Albumin 2.4L, Globulin 4.0, Albumin/ Globulin Ratio 0.6L 05/31/19 18:06: Arterial Blood pH 7.440, Arterial Blood Partial Pressure CO2 24.0*L, Arterial Blood Partial Pressure O2 77.0, Arterial Blood HCO3 16.1*L, Arterial Blood Oxygen Saturation 95.8, Arterial Blood Base Excess -6.4L, Peter Test Positive 06/01/19 04:00: Sodium Level 140, Potassium Level 3.6, Chloride Level 107, Carbon Dioxide Level 22, Anion Gap 12, Blood Urea Nitrogen 27H, Creatinine 2.8H, Estimat Glomerular Filtration Rate , Glucose Level 105, Calcium Level 6.9L, Phosphorus Level 2.6, Magnesium Level 2.4, Total Bilirubin 0.5, Aspartate Amino Transf (AST/SGOT) 21, Alanine Aminotransferase (ALT/SGPT) 6L, Alkaline Phosphatase 93, Pro-B-Type Natriuretic Peptide > [id number], Total Protein 6.1L, Albumin 2.3L, Globulin 3.8, Albumin/Globulin Ratio 0.6L, White Blood Count 7.4, Red Blood Count 3.17L, Hemoglobin 9.7L, Hematocrit 30.8L, Mean Corpuscular Volume 97, Mean Corpuscular Hemoglobin 30.5, Mean Corpuscular Hemoglobin Concent 31.4L, Red Cell Distribution Width 17.9H, Platelet Count 185, Mean Platelet Volume 6.2L, Neutrophils (%) (Auto) 62.6, Lymphocytes (%) (Auto) 22.3, Monocytes (%) (Auto) 10.8H, Eosinophils (%) (Auto) 2.5, Basophils (%) (Auto) 1.8, Uric Acid 5.6 Current Medications Medications (Trade) Dose Ordered Sig/Christophe Route PRN Reason Start Time Stop Time Status Last Admin Dose Admin Acetaminophen (Tylenol) 650 mg Q4H PRN ORAL Mild Pain/Temp > 100.5 05/29/19 09:15 06/28/19 09:14 05/29/19 12:52 Amiodarone HCl (Cordarone) 400 mg BID ORAL 05/30/19 18:00 06/28/19 09:14 05/31/19 17:20 Aspirin (ASA) 325 mg DAILY ORAL 05/29/19 09:15 06/28/19 09:14 05/31/19 08:21 Bisacodyl (Dulcolax) 10 mg DAILY PRN RECTAL Constipation, LAST LINE 05/29/19 09:15 06/28/19 09:14 Carvedilol (Coreg) 25 mg EVERY 12 HOURS ORAL 05/31/19 21:00 06/29/19 20:59 Clopidogrel Bisulfate (Plavix) 75 mg DAILY ORAL 05/29/19 09:15 06/28/19 09:14 05/31/19 08:21 Dextrose (Dextrose 50%) 25 ml Q30M PRN IV Hypoglycemia 05/29/19 10:00 06/28/19 09:59 Dextrose (Dextrose 50%) 50 ml Q30M PRN IV Hypoglycemia 05/29/19 10:00 06/28/19 09:59 Docusate Sodium (Colace) 100 mg THREE TIMES A DAY ORAL 05/29/19 18:00 06/28/19 17:59 05/31/19 17:21 Hydralazine HCl (Apresoline) 25 mg Q6HR ORAL 05/31/19 12:00 06/28/19 13:44 06/01/19 06:24 Insulin Aspart (NovoLOG) BEFORE MEALS AND HS SUBQ 05/29/19 11:30 06/28/19 11:29 05/31/19 20:32 Mineral Oil (Fleet's Mineral Oil Enema) 133 ml 3XW PRN RECTAL Constipation 05/29/19 09:15 06/28/19 09:14 Nitroglycerin (Ntg) 0.4 mg Q5MIN X 3 DOSES PRN SL CHEST PAIN 05/29/19 09:15 06/28/19 09:14 Ondansetron HCl (Zofran ODT) 4 mg Q8H PRN ORAL Nausea & Vomiting 05/29/19 09:15 06/28/19 09:14 Pantoprazole (Protonix) 40 mg BID ORAL 05/29/19 18:00 06/28/19 09:59 05/31/19 17:20 Piperacillin Sod/ Tazobactam Sod 2.25 gm/Sodium Chloride 55 ml @ 110 mls/hr Q8H IV 05/30/19 13:00 06/06/19 12:59 06/01/19 06:23 Povidone Iodine (Betadine Shoshana) 1 applic DAILY TOPIC 05/29/19 09:15 06/28/19 09:14 05/31/19 08:22 Vitamin A/Vitamin D (A & D Oint) 1 applic DAILY TOPIC 05/29/19 10:30 06/28/19 10:29 05/31/19 08:22 Zolpidem Tartrate (Ambien) 5 mg BEDTIME PRN ORAL Insomnia 05/29/19 09:15 06/05/19 09:14 Hermann Martinez MD Jun 01, 2019 07:13
--- NOTE | 2019-06-01 07:25 | NUR ---
HAND-OFF: Report given to QUAN Figueroa.
--- NOTE | 2019-06-01 07:26 | NUR ---
NURSE NOTES: Received patient in bed. Asleep, easy to arouse. In no apparent distress. On nasal cannula at 3LPM. Bed in lowest position. Bed alarm on. Patient's family/daughter at bedside. No chest pain. Will continue plan of care.
[2019-06-01 08:39] VITALS: BP 131/63
[2019-06-01] MEDS: Amiodarone 200mg tab ORAL SCH (09:00)
[2019-06-01] MEDS: Docusate 100mg cap ORAL SCH ×3 (09:00→17:55)
[2019-06-01] MEDS: Carvedilol 25mg Tab ORAL SCH ×2 (09:01→20:24)
[2019-06-01] MEDS: Betadine 4oz Bottle TOPIC SCH ×2 (09:56→23:01)
[2019-06-01] MEDS: Vitamin A&D Oint Tube TOPIC SCH ×2 (09:56→21:00)
--- NOTE | 2019-06-01 10:01 | Cardiac Electrophysiology PN ---
Assessment/Plan Assessment/Plan 1. Status post [employer] ICD implantation at [facility] on 05/22. Patient had VT and ATP and then ICD shock 05/30/19. ICD interrogation confirmed the VT and appropriate therapy No further shock on Amiodarone. Decrease to 400 mg po daily 2. Coronary artery disease s/p DESx 2 in prox-mid RCA and ostial R PL placement on 05/19/19. S/P JOSE mid LAD and mid Cx on 05/17/19 No CP on aspirin, Plavix, and Toprol-XL 25 mg daily. 3. Ischemic cardiomyopathy. EF 35%. The patient is on lisinopril 20 mg daily and metoprolol as well as hemodialysis. 4. PAF . Decresae Amiodarone to 400 daily in view of recurrent VT 5. End-stage renal disease, on hemodialysis. 6. Fever and sepsis. The patient is on vancomycin and Zosyn. The incision currently is intact. JARRED RN Subjective Subjective Had shock from ICD for VT that converted to SR on 05/30/19. No more ICD shock. Had HD at 3 am today Objective Last 24 Hour Vital Signs Date Time Temp Pulse Resp B/P (MAP) Pulse Ox O2 Delivery O2 Flow Rate FiO2 06/01/19 09:01 88 131/63 06/01/19 08:39 98.2 88 14 131/63 (85) 99 06/01/19 08:00 Nasal Cannula 3.0 06/01/19 07:59 88 06/01/19 06:50 99 Nasal Cannula 2.0 28 06/01/19 06:50 98 21 100 Nasal Cannula 2.0 28 06/01/19 06:24 136/70 06/01/19 04:00 Nasal Cannula 3.0 06/01/19 04:00 97.6 68 14 151/72 (98) 100 06/01/19 04:00 60 06/01/19 04:00 3.0 06/01/19 00:13 125/65 06/01/19 00:00 Nasal Cannula 3.0 05/31/19 23:54 3.0 05/31/19 23:52 62 05/31/19 23:46 98.1 56 18 125/65 (85) 98 05/31/19 21:00 60 105/55 05/31/19 20:00 Nasal Cannula 3.0 05/31/19 20:00 97.8 60 21 105/55 (72) 100 05/31/19 20:00 62 05/31/19 20:00 3.0 05/31/19 19:04 57 24 99 Nasal Cannula 2.0 28 05/31/19 19:04 99 Nasal Cannula 2.0 28 05/31/19 17:20 124/60 05/31/19 17:00 60 18 113/64 (80) 100 05/31/19 16:00 98.0 60 18 107/60 (76) 100 05/31/19 16:00 3.0 05/31/19 16:00 Nasal Cannula 3.0 05/31/19 16:00 60 05/31/19 12:00 3.0 05/31/19 12:00 98.1 81 18 118/71 (87) 100 05/31/19 12:00 Nasal Cannula 3.0 05/31/19 11:37 78 05/31/19 11:25 143/87 Intake and Output 05/31/19 06/01/19 19:00 07:00 Intake Total 120 ml 360 ml Output Total 300 ml 210 ml Balance -180 ml 150 ml Intake Oral 120 ml 250 ml IV Total 110 ml Output Urine Total 300 ml 210 ml # Bowel Movements 4 Laboratory Tests Test 05/31/19 18:06 06/01/19 04:00 Arterial Blood pH 7.440 (7.350-7.450) Arterial Blood Partial Pressure CO2 24.0 mmHg (35.0-45.0) *L Arterial Blood Partial Pressure O2 77.0 mmHg (75.0-100.0) Arterial Blood HCO3 16.1 mmol/L (22.0-26.0) *L Arterial Blood Oxygen Saturation 95.8 % (95-100) Arterial Blood Base Excess -6.4 (-2-2) L Peter Test Positive White Blood Count 7.4 K/UL (4.8-10.8) Red Blood Count 3.17 M/UL (4.20-5.40) L Hemoglobin 9.7 G/DL (12.0-16.0) L Hematocrit 30.8 % (37.0-47.0) L Mean Corpuscular Volume 97 FL (80-99) Mean Corpuscular Hemoglobin 30.5 PG (27.0-31.0) Mean Corpuscular Hemoglobin Concent 31.4 G/DL (32.0-36.0) L Red Cell Distribution Width 17.9 % (11.6-14.8) H Platelet Count 185 K/UL (150-450) Mean Platelet Volume 6.2 FL (6.5-10.1) L Neutrophils (%) (Auto) 62.6 % (45.0-75.0) Lymphocytes (%) (Auto) 22.3 % (20.0-45.0) Monocytes (%) (Auto) 10.8 % (1.0-10.0) H Eosinophils (%) (Auto) 2.5 % (0.0-3.0) Basophils (%) (Auto) 1.8 % (0.0-2.0) Sodium Level 140 MMOL/L (136-145) Potassium Level 3.6 MMOL/L (3.5-5.1) Chloride Level 107 MMOL/L (98-107) Carbon Dioxide Level 22 MMOL/L (21-32) Anion Gap 12 mmol/L (5-15) Blood Urea Nitrogen 27 mg/dL (7-18) H Creatinine 2.8 MG/DL (0.55-1.30) H Estimat Glomerular Filtration Rate mL/min (>60) Glucose Level 105 MG/DL (74-106) Uric Acid 5.6 MG/DL (2.6-7.2) Calcium Level 6.9 MG/DL (8.5-10.1) L Phosphorus Level 2.6 MG/DL (2.5-4.9) Magnesium Level 2.4 MG/DL (1.8-2.4) Total Bilirubin 0.5 MG/DL (0.2-1.0) Aspartate Amino Transf (AST/SGOT) 21 U/L (15-37) Alanine Aminotransferase (ALT/SGPT) 6 U/L (12-78) L Alkaline Phosphatase 93 U/L (46-116) Pro-B-Type Natriuretic Peptide > 34012 pg/mL (0-125) H Total Protein 6.1 G/DL (6.4-8.2) L Albumin 2.3 G/DL (3.4-5.0) L Globulin 3.8 g/dL Albumin/Globulin Ratio 0.6 (1.0-2.7) L Microbiology Date/Time Source Procedure Growth Status 05/29/19 14:00 Indwelling Cath Urine Culture - Final NO GROWTH AFTER 48 HOURS Complete Objective HEAD AND NECK: Positive JVD. LUNGS: Decreased breath sounds. CARDIOVASCULAR: Shows regular S1 and S2 with no gallop. Defibrillator is in the right subclavian and incision is intact. The Frankie catheter is in the left subclavian. ABDOMEN: Soft. EXTREMITIES: No pitting edema. Prosper Rao MD Jun 01, 2019 10:01
--- NOTE | 2019-06-01 10:12 | Infectious Diseases Prog Note ---
Assessment/Plan Assessment/Plan IMPRESSION: 1. Sepsis or systemic inflammatory response syndrome. 2. Congestion, ? pneumonia 3. Hypoxemic respiratory failure. 4. Hyperkalemia. 5. Lactic acidosis. 6. End-stage renal disease on hemodialysis. 7. Diabetes mellitus type 2. 8. Congestive heart failure. 9. Hypertension. 10. Hyperlipidemia. 11. Positive blood culture with CoANS likely contamination RECOMMENDATION: We will continue with Zosyn vancomycin was discontinued Subjective ROS Limited/Unobtainable: Yes Constitutional: Reports: no symptoms, other - doing better Respiratory: Reports: no symptoms Musculoskeletal: Reports: no symptoms Allergies: Coded Allergies: No Known Allergies (Unverified , 05/29/19) Objective Vital Signs Last 24 Hour Vital Signs Date Time Temp Pulse Resp B/P (MAP) Pulse Ox O2 Delivery O2 Flow Rate FiO2 06/01/19 09:01 88 131/63 06/01/19 08:39 98.2 88 14 131/63 (85) 99 06/01/19 08:00 Nasal Cannula 3.0 06/01/19 07:59 88 06/01/19 06:50 99 Nasal Cannula 2.0 28 06/01/19 06:50 98 21 100 Nasal Cannula 2.0 28 06/01/19 06:24 136/70 06/01/19 04:00 Nasal Cannula 3.0 06/01/19 04:00 97.6 68 14 151/72 (98) 100 06/01/19 04:00 60 06/01/19 04:00 3.0 06/01/19 00:13 125/65 06/01/19 00:00 Nasal Cannula 3.0 05/31/19 23:54 3.0 05/31/19 23:52 62 05/31/19 23:46 98.1 56 18 125/65 (85) 98 05/31/19 21:00 60 105/55 05/31/19 20:00 Nasal Cannula 3.0 05/31/19 20:00 97.8 60 21 105/55 (72) 100 05/31/19 20:00 62 05/31/19 20:00 3.0 05/31/19 19:04 57 24 99 Nasal Cannula 2.0 28 05/31/19 19:04 99 Nasal Cannula 2.0 28 05/31/19 17:20 124/60 05/31/19 17:00 60 18 113/64 (80) 100 05/31/19 16:00 98.0 60 18 107/60 (76) 100 05/31/19 16:00 3.0 05/31/19 16:00 Nasal Cannula 3.0 05/31/19 16:00 60 05/31/19 12:00 3.0 05/31/19 12:00 98.1 81 18 118/71 (87) 100 05/31/19 12:00 Nasal Cannula 3.0 05/31/19 11:37 78 05/31/19 11:25 143/87 Height (Feet): 4 Height (Inches): 10.00 Weight (Pounds): 129 General Appearance: no acute distress HEENT: mucous membranes moist Respiratory/Chest: lungs clear, other - oxygen by nasal cannula Cardiovascular: normal rate, pacemaker/AICD, other - Permacath Abdomen: soft, non tender Extremities: no edema Neurologic/Psychiatric: alert, responsive Microbiology Date/Time Source Procedure Growth Status 05/29/19 14:00 Indwelling Cath Urine Culture - Final NO GROWTH AFTER 48 HOURS Complete Laboratory Tests Test 05/31/19 18:06 06/01/19 04:00 Arterial Blood pH 7.440 (7.350-7.450) Arterial Blood Partial Pressure CO2 24.0 mmHg (35.0-45.0) *L Arterial Blood Partial Pressure O2 77.0 mmHg (75.0-100.0) Arterial Blood HCO3 16.1 mmol/L (22.0-26.0) *L Arterial Blood Oxygen Saturation 95.8 % (95-100) Arterial Blood Base Excess -6.4 (-2-2) L Peter Test Positive White Blood Count 7.4 K/UL (4.8-10.8) Red Blood Count 3.17 M/UL (4.20-5.40) L Hemoglobin 9.7 G/DL (12.0-16.0) L Hematocrit 30.8 % (37.0-47.0) L Mean Corpuscular Volume 97 FL (80-99) Mean Corpuscular Hemoglobin 30.5 PG (27.0-31.0) Mean Corpuscular Hemoglobin Concent 31.4 G/DL (32.0-36.0) L Red Cell Distribution Width 17.9 % (11.6-14.8) H Platelet Count 185 K/UL (150-450) Mean Platelet Volume 6.2 FL (6.5-10.1) L Neutrophils (%) (Auto) 62.6 % (45.0-75.0) Lymphocytes (%) (Auto) 22.3 % (20.0-45.0) Monocytes (%) (Auto) 10.8 % (1.0-10.0) H Eosinophils (%) (Auto) 2.5 % (0.0-3.0) Basophils (%) (Auto) 1.8 % (0.0-2.0) Sodium Level 140 MMOL/L (136-145) Potassium Level 3.6 MMOL/L (3.5-5.1) Chloride Level 107 MMOL/L (98-107) Carbon Dioxide Level 22 MMOL/L (21-32) Anion Gap 12 mmol/L (5-15) Blood Urea Nitrogen 27 mg/dL (7-18) H Creatinine 2.8 MG/DL (0.55-1.30) H Estimat Glomerular Filtration Rate mL/min (>60) Glucose Level 105 MG/DL (74-106) Uric Acid 5.6 MG/DL (2.6-7.2) Calcium Level 6.9 MG/DL (8.5-10.1) L Phosphorus Level 2.6 MG/DL (2.5-4.9) Magnesium Level 2.4 MG/DL (1.8-2.4) Total Bilirubin 0.5 MG/DL (0.2-1.0) Aspartate Amino Transf (AST/SGOT) 21 U/L (15-37) Alanine Aminotransferase (ALT/SGPT) 6 U/L (12-78) L Alkaline Phosphatase 93 U/L (46-116) Pro-B-Type Natriuretic Peptide > 82742 pg/mL (0-125) H Total Protein 6.1 G/DL (6.4-8.2) L Albumin 2.3 G/DL (3.4-5.0) L Globulin 3.8 g/dL Albumin/Globulin Ratio 0.6 (1.0-2.7) L Current Medications Medications (Trade) Dose Ordered Sig/Christophe Route PRN Reason Start Time Stop Time Status Last Admin Dose Admin Acetaminophen (Tylenol) 650 mg Q4H PRN ORAL Mild Pain/Temp > 100.5 10/22/19 09:15 06/28/19 09:14 05/29/19 12:52 Amiodarone HCl (Cordarone) 400 mg DAILY ORAL 06/02/19 09:00 06/28/19 09:14 Aspirin (ASA) 325 mg DAILY ORAL 05/29/19 09:15 06/28/19 09:14 06/01/19 09:00 Bisacodyl (Dulcolax) 10 mg DAILY PRN RECTAL Constipation, LAST LINE 05/29/19 09:15 06/28/19 09:14 Carvedilol (Coreg) 25 mg EVERY 12 HOURS ORAL 05/31/19 21:00 06/29/19 20:59 06/01/19 09:01 Chlorhexidine Gluconate (Ave-Hex 2%) 1 applic DAILY@1999 TOPIC 06/01/19 20:00 07/01/19 19:59 Clopidogrel Bisulfate (Plavix) 75 mg DAILY ORAL 05/29/19 09:15 06/28/19 09:14 06/01/19 09:00 Dextrose (Dextrose 50%) 25 ml Q30M PRN IV Hypoglycemia 05/29/19 10:00 06/28/19 09:59 Dextrose (Dextrose 50%) 50 ml Q30M PRN IV Hypoglycemia 05/29/19 10:00 06/28/19 09:59 Docusate Sodium (Colace) 100 mg THREE TIMES A DAY ORAL 05/29/19 18:00 06/28/19 17:59 05/31/19 17:21 Hydralazine HCl (Apresoline) 25 mg Q6HR ORAL 05/31/19 12:00 06/28/19 13:44 06/01/19 06:24 Insulin Aspart (NovoLOG) BEFORE MEALS AND HS SUBQ 05/29/19 11:30 06/28/19 11:29 05/31/19 20:32 Mineral Oil (Fleet's Mineral Oil Enema) 133 ml 3XW PRN RECTAL Constipation 05/29/19 09:15 06/28/19 09:14 Nitroglycerin (Ntg) 0.4 mg Q5MIN X 3 DOSES PRN SL CHEST PAIN 05/29/19 09:15 06/28/19 09:14 Ondansetron HCl (Zofran ODT) 4 mg Q8H PRN ORAL Nausea & Vomiting 10/22/19 09:15 06/28/19 09:14 Pantoprazole (Protonix) 40 mg BID ORAL 05/29/19 18:00 06/28/19 09:59 06/01/19 09:00 Piperacillin Sod/ Tazobactam Sod 2.25 gm/Sodium Chloride 55 ml @ 110 mls/hr Q8H IV 05/30/19 13:00 06/06/19 12:59 06/01/19 06:23 Povidone Iodine (Betadine Shoshana) 1 applic BEDTIME TOPIC 06/01/19 21:00 06/28/19 09:14 Vitamin A/Vitamin D (A & D Oint) 1 applic BEDTIME TOPIC 06/01/19 21:00 06/28/19 10:29 Zolpidem Tartrate (Ambien) 5 mg BEDTIME PRN ORAL Insomnia 05/29/19 09:15 06/05/19 09:14 William Dailey MD Jun 01, 2019 10:12
--- NOTE | 2019-06-01 11:19 | Nephrology Progress Note ---
Assessment/Plan Problem List: (1) ESRD (end stage renal disease) (2) Respiratory distress (3) Urinary retention (4) Pulmonary edema (5) Cardiomyopathy Assessment Sepsis ESRD Urine outlet obst, Urinary retention CHF / cardiomyopathy Plan dialysed early this am for SOB - 2000 cc uf adjust after load reduction and BP meds K and Phos and Mag supplement 2D echo low ej fx ortiz urine studies optimize cardiac and pulmonary status Subjective ROS Limited/Unobtainable: No Constitutional: Reports: malaise Objective Objective Last 24 Hour Vital Signs Date Time Temp Pulse Resp B/P (MAP) Pulse Ox O2 Delivery O2 Flow Rate FiO2 06/01/19 09:01 88 131/63 06/01/19 08:39 98.2 88 14 131/63 (85) 99 06/01/19 08:00 Nasal Cannula 3.0 06/01/19 07:59 88 06/01/19 06:50 99 Nasal Cannula 2.0 28 06/01/19 06:50 98 21 100 Nasal Cannula 2.0 28 06/01/19 06:24 136/70 06/01/19 04:00 Nasal Cannula 3.0 06/01/19 04:00 97.6 68 14 151/72 (98) 100 06/01/19 04:00 60 06/01/19 04:00 3.0 06/01/19 00:13 125/65 06/01/19 00:00 Nasal Cannula 3.0 05/31/19 23:54 3.0 05/31/19 23:52 62 05/31/19 23:46 98.1 56 18 125/65 (85) 98 05/31/19 21:00 60 105/55 05/31/19 20:00 Nasal Cannula 3.0 05/31/19 20:00 97.8 60 21 105/55 (72) 100 05/31/19 20:00 62 05/31/19 20:00 3.0 05/31/19 19:04 57 24 99 Nasal Cannula 2.0 28 05/31/19 19:04 99 Nasal Cannula 2.0 28 05/31/19 17:20 124/60 05/31/19 17:00 60 18 113/64 (80) 100 05/31/19 16:00 98.0 60 18 107/60 (76) 100 05/31/19 16:00 3.0 05/31/19 16:00 Nasal Cannula 3.0 05/31/19 16:00 60 05/31/19 12:00 3.0 05/31/19 12:00 98.1 81 18 118/71 (87) 100 05/31/19 12:00 Nasal Cannula 3.0 05/31/19 11:37 78 05/31/19 11:25 143/87 Intake and Output 05/31/19 06/01/19 19:00 07:00 Intake Total 120 ml 360 ml Output Total 300 ml 210 ml Balance -180 ml 150 ml Intake Oral 120 ml 250 ml IV Total 110 ml Output Urine Total 300 ml 210 ml # Bowel Movements 4 Laboratory Tests 05/31/19 18:06: Arterial Blood pH 7.440, Arterial Blood Partial Pressure CO2 24.0*L, Arterial Blood Partial Pressure O2 77.0, Arterial Blood HCO3 16.1*L, Arterial Blood Oxygen Saturation 95.8, Arterial Blood Base Excess -6.4L, Peter Test Positive 06/01/19 04:00: White Blood Count 7.4, Red Blood Count 3.17L, Hemoglobin 9.7L, Hematocrit 30.8L , Mean Corpuscular Volume 97, Mean Corpuscular Hemoglobin 30.5, Mean Corpuscular Hemoglobin Concent 31.4L, Red Cell Distribution Width 17.9H, Platelet Count 185, Mean Platelet Volume 6.2L, Neutrophils (%) (Auto) 62.6, Lymphocytes (%) (Auto) 22.3, Monocytes (%) (Auto) 10.8H, Eosinophils (%) (Auto) 2.5, Basophils (%) (Auto) 1.8, Sodium Level 140, Potassium Level 3.6, Chloride Level 107, Carbon Dioxide Level 22, Anion Gap 12, Blood Urea Nitrogen 27H, Creatinine 2.8H, Estimat Glomerular Filtration Rate , Glucose Level 105, Uric Acid 5.6, Calcium Level 6.9L, Phosphorus Level 2.6, Magnesium Level 2.4, Total Bilirubin 0.5, Aspartate Amino Transf (AST/SGOT) 21, Alanine Aminotransferase ( ALT/SGPT) 6L, Alkaline Phosphatase 93, Pro-B-Type Natriuretic Peptide > 81127S, Total Protein 6.1L, Albumin 2.3L, Globulin 3.8, Albumin/Globulin Ratio 0.6L Height (Feet): 4 Height (Inches): 10.00 Weight (Pounds): 129 General Appearance: no apparent distress Respiratory/Chest: decreased breath sounds Abdomen: distended Josep Rosales MD Jun 01, 2019 11:19
--- NOTE | 2019-06-01 11:50 | NUR ---
*-* INSURANCE *-* ALL AVAILABLE CLINICALS HAVE BEEN FAXED TO [employer]#[id number] KAVE[facility]; Steve #[phone] Addendum: 06/01/19 at 1152 by VERONIKA MCMILLAN CM TRIED CONTACTING NC:STEVE TO CONFIRM IS SHE IS RECEIVING CLINICALS WITH NO LUCK LEFT VM TO CALL BACK TO CONFIRM.
[2019-06-01 12:00] VITALS: BP 113/63
--- NOTE | 2019-06-01 14:19 | NUR ---
SUPPLY [employer] SI: PULMONARY EDEMA T. 98.2 HR 88 RR 14 B/P 131/63 NC 3L O2 SAT @ 98% BUN 27 CR 2.8 [id number]>[id number] IS: ZOSYN IV AMIODARONE STEP DOWN STATUS
[2019-06-01 16:00] VITALS: BP 123/68
--- NOTE | 2019-06-01 17:04 | NUR ---
NURSE NOTES: Order received from Dr. Malone to change diet to pureed diet.
--- NOTE | 2019-06-01 17:53 | General Progress Note ---
Assessment/Plan Assessment/Plan: Assessment - abnormal LFT - resolved - GB sludge - resp failure - arrhythmia, s/p AICD - CAD, s/p Stent - ESRD/HD - DM - HTN Recommendations - advance to pureed diet, Renal - aspiration precautions - push po - Periodic LFT - f/u hepatitis serologies - negative - elevate HOB Subjective Allergies: Coded Allergies: No Known Allergies (Unverified , 05/29/19) Subjective more awake family at bedside off BIPAP responsive d/w RN tolerating clears Objective Last 24 Hour Vital Signs Date Time Temp Pulse Resp B/P (MAP) Pulse Ox O2 Delivery O2 Flow Rate FiO2 06/01/19 17:16 123/68 06/01/19 16:00 Nasal Cannula 3.0 06/01/19 16:00 97.7 72 18 123/68 (86) 100 06/01/19 15:28 71 06/01/19 12:00 97.7 74 21 113/63 (80) 100 06/01/19 12:00 Nasal Cannula 3.0 06/01/19 12:00 113/63 06/01/19 11:26 82 06/01/19 09:01 88 131/63 06/01/19 08:39 98.2 88 14 131/63 (85) 99 06/01/19 08:00 Nasal Cannula 3.0 06/01/19 07:59 88 06/01/19 06:50 99 Nasal Cannula 2.0 28 06/01/19 06:50 98 21 100 Nasal Cannula 2.0 28 06/01/19 06:24 136/70 06/01/19 04:00 Nasal Cannula 3.0 06/01/19 04:00 97.6 68 14 151/72 (98) 100 06/01/19 04:00 60 06/01/19 04:00 3.0 06/01/19 00:13 125/65 06/01/19 00:00 Nasal Cannula 3.0 05/31/19 23:54 3.0 05/31/19 23:52 62 05/31/19 23:46 98.1 56 18 125/65 (85) 98 05/31/19 21:00 60 105/55 05/31/19 20:00 Nasal Cannula 3.0 05/31/19 20:00 97.8 60 21 105/55 (72) 100 05/31/19 20:00 62 05/31/19 20:00 3.0 05/31/19 19:04 57 24 99 Nasal Cannula 2.0 28 05/31/19 19:04 99 Nasal Cannula 2.0 28 Intake and Output 05/31/19 06/01/19 19:00 07:00 Intake Total 120 ml 360 ml Output Total 300 ml 210 ml Balance -180 ml 150 ml Intake Oral 120 ml 250 ml IV Total 110 ml Output Urine Total 300 ml 210 ml # Bowel Movements 4 Laboratory Tests 05/31/19 18:06: Arterial Blood pH 7.440, Arterial Blood Partial Pressure CO2 24.0*L, Arterial Blood Partial Pressure O2 77.0, Arterial Blood HCO3 16.1*L, Arterial Blood Oxygen Saturation 95.8, Arterial Blood Base Excess -6.4L, Peter Test Positive 06/01/19 04:00: White Blood Count 7.4, Red Blood Count 3.17L, Hemoglobin 9.7L, Hematocrit 30.8L , Mean Corpuscular Volume 97, Mean Corpuscular Hemoglobin 30.5, Mean Corpuscular Hemoglobin Concent 31.4L, Red Cell Distribution Width 17.9H, Platelet Count 185, Mean Platelet Volume 6.2L, Neutrophils (%) (Auto) 62.6, Lymphocytes (%) (Auto) 22.3, Monocytes (%) (Auto) 10.8H, Eosinophils (%) (Auto) 2.5, Basophils (%) (Auto) 1.8, Sodium Level 140, Potassium Level 3.6, Chloride Level 107, Carbon Dioxide Level 22, Anion Gap 12, Blood Urea Nitrogen 27H, Creatinine 2.8H, Estimat Glomerular Filtration Rate , Glucose Level 105, Uric Acid 5.6, Calcium Level 6.9L, Phosphorus Level 2.6, Magnesium Level 2.4, Total Bilirubin 0.5, Aspartate Amino Transf (AST/SGOT) 21, Alanine Aminotransferase ( ALT/SGPT) 6L, Alkaline Phosphatase 93, Pro-B-Type Natriuretic Peptide > 14252K, Total Protein 6.1L, Albumin 2.3L, Globulin 3.8, Albumin/Globulin Ratio 0.6L Height (Feet): 4 Height (Inches): 10.00 Weight (Pounds): 129 Objective Elderly woman NCAT supple CTA RR abd soft ND no edema Susan Malone MD Jun 01, 2019 17:53
--- NOTE | 2019-06-01 19:30 | NUR ---
HAND-OFF: Report given to Lazara Jacobs RN. Patient remains stable, with nasal cannula at 3LPM. Family at bedside. Dallas cath inplace. Will continue plan of care.
--- NOTE | 2019-06-01 19:35 | NUR ---
NURSE NOTES: Received report from Carolina Allison RN. Pt is stable, alert, awake, Azeri speaking. Denies pain or distress. Family at bedside. Nasal cannula @3 LPM satting at 100%. Dallas cath in place draining straw yellow urine, asymptomatic, patent. No signs or symptoms of pain or distress noted at this time. Will continue to monitor closely.
[2019-06-01 20:00] VITALS: BP 122/62
[2019-06-01] MEDS: Dyna-Hex 2% Top Sol 2oz TOPIC SCH (20:22)
[2019-06-02] VITALS: BP 123/66
[2019-06-02] MEDS: HydrALAZINE 10mg Tab ORAL SCH ×4 (01:30→21:16)
[2019-06-02 04:00] VITALS: BP 121/67
[2019-06-02] MEDS: Piperacillin/Tazobactam 2.25 GM in NS 55 ML IV SCH ×3 (05:19→20:13)
[2019-06-02 05:46] LABS: BASOPHILS % (AUTO) 1.6 % (0.0-2.0); EOSINOPHILS % (AUTO) 5.6 % (0.0-3.0); HEMATOCRIT 35.8 % (37.0-47.0); HEMOGLOBIN 11.1 G/DL (12.0-16.0); LYMPHOCYTES % (AUTO) 23.4 % (20.0-45.0); MEAN CORPUSCULAR VOLUME 98 FL (80-99); MONOCYTES % (AUTO) 10.2 % (1.0-10.0); NEUTROPHILS % (AUTO) 59.2 % (45.0-75.0); PLATELET COUNT 147 K/UL (150-450); RED BLOOD COUNT 3.65 M/UL (4.20-5.40); RED CELL DISTRIBUTION WIDTH 17.8 % (11.6-14.8)
[2019-06-02 06:04] LABS: ALANINE AMINOTRANSFERASE 10 U/L (12-78); ALBUMIN 2.5 G/DL (3.4-5.0); ALBUMIN/GLOBULIN RATIO 0.6 (1.0-2.7); ALKALINE PHOSPHATASE 94 U/L (46-116); ANION GAP 9 mmol/L (5-15); ASPARTATE AMINO TRANSFERASE 22 U/L (15-37); BILIRUBIN,TOTAL 0.6 MG/DL (0.2-1.0); BLOOD UREA NITROGEN 16 mg/dL (7-18); CALCIUM 7.3 MG/DL (8.5-10.1); CARBON DIOXIDE 26 MMOL/L (21-32); CHLORIDE 106 MMOL/L (98-107); CREATININE 2.4 MG/DL (0.55-1.30); POTASSIUM 3.3 MMOL/L (3.5-5.1); SODIUM 141 MMOL/L (136-145)
[2019-06-02] MEDS: NovoLOG Insulin Flexpen SUBQ SCH ×4 (06:30→21:00)
[2019-06-02 08:00] VITALS: BP 121/67
--- NOTE | 2019-06-02 08:00 | NUR ---
NURSE NOTES: Received change of shift report from Lazara GLASS. Pt is awake, alert, oriented x3, Citizen Of [place] speaking, pt's son is at bedside. Pt is on 3L of oxygen via nasal cannula with 99%O2Sat. Bilateral diminished lung sounds are noted on auscultation. Tele monitor displays SR with heart rate in the low 90's with bounding radial and weak pedal pulses on palpation. Abdomen is round, soft, nontender to touch with active bowel sounds. Pt has left FA #[id number] peripheral IV access and left chest permacath for dialysis access, both dry/intact/patent. Pt has Dallas catheter in bladder, draining clear/yellow urine. Skin has bilateral heel DTIs and sacral mild erythema, covered with optifoam dressings. Bed is locked with three side rails up, in lowest position, head of bed at semi-beverly's and call light within easy reach. Will continue to monitor pt and follow plan of care per MD orders and protocol.
[2019-06-02] MEDS: Carvedilol 25mg Tab ORAL SCH ×2 (09:09→20:14)
[2019-06-02] MEDS: Docusate 100mg cap ORAL SCH ×3 (09:10→16:51)
[2019-06-02] MEDS: Amiodarone 200mg tab ORAL SCH (09:10)
--- NOTE | 2019-06-02 09:22 | NUR ---
NURSE NOTES: AM meds were administered. Pt had BM x1, formed/soft/brown. Pt was cleaned and gown changed with lower extremities elevated on pillows. Pt is currently refusing to use the SCDs on lower extremities. VS stable. Denies any pain or discomfort at this time. Per pt's son, pt had oatmeal earlier this morning, and is refusing the rest of breakfast meal at this time.
--- NOTE | 2019-06-02 09:30 | General Progress Note ---
Assessment/Plan Assessment/Plan: Assessment - abnormal LFT - resolved - GB sludge - resp failure - arrhythmia, s/p AICD - CAD, s/p Stent - ESRD/HD - DM - HTN Recommendations - advance to pureed diet, Renal - aspiration precautions - push po - Periodic LFT - f/u hepatitis serologies - negative - elevate HOB Subjective ROS Limited/Unobtainable: No Allergies: Coded Allergies: No Known Allergies (Unverified , 05/29/19) Objective Last 24 Hour Vital Signs Date Time Temp Pulse Resp B/P (MAP) Pulse Ox O2 Delivery O2 Flow Rate FiO2 06/02/19 09:09 71 150/87 06/02/19 06:31 150/87 06/02/19 04:00 Nasal Cannula 3.0 06/02/19 04:00 71 06/02/19 04:00 97.9 72 20 121/67 (85) 99 06/02/19 01:30 123/66 06/02/19 00:00 64 06/02/19 00:00 Nasal Cannula 3.0 06/02/19 00:00 97.9 71 20 123/66 (85) 99 06/01/19 21:00 Nasal Cannula 3.0 06/01/19 20:24 60 122/62 06/01/19 20:00 98.2 60 20 122/62 (82) 100 06/01/19 19:25 61 06/01/19 19:05 102 20 100 Nasal Cannula 2.0 28 06/01/19 19:05 100 Nasal Cannula 2.0 28 06/01/19 17:16 123/68 06/01/19 16:00 Nasal Cannula 3.0 06/01/19 16:00 97.7 72 18 123/68 (86) 100 06/01/19 15:28 71 06/01/19 12:00 97.7 74 21 113/63 (80) 100 06/01/19 12:00 Nasal Cannula 3.0 06/01/19 12:00 113/63 06/01/19 11:26 82 Intake and Output 06/01/19 06/02/19 18:59 06:59 Intake Total 230 ml 170 ml Output Total 100 ml 300 ml Balance 130 ml -130 ml Intake Oral 120 ml 60 ml IV Total 110 ml 110 ml Output Urine Total 100 ml 300 ml # Bowel Movements 2 3 Laboratory Tests 06/02/19 04:35: White Blood Count 6.0, Red Blood Count 3.65L, Hemoglobin 11.1L, Hematocrit 35.8L , Mean Corpuscular Volume 98, Mean Corpuscular Hemoglobin 30.5, Mean Corpuscular Hemoglobin Concent 31.1L, Red Cell Distribution Width 17.8H, Platelet Count 147L, Mean Platelet Volume 6.8, Neutrophils (%) (Auto) 59.2, Lymphocytes (%) (Auto) 23.4, Monocytes (%) (Auto) 10.2H, Eosinophils (%) (Auto) 5.6H, Basophils (%) (Auto) 1.6, Sodium Level 141, Potassium Level 3.3L, Chloride Level 106, Carbon Dioxide Level 26, Anion Gap 9, Blood Urea Nitrogen 16 , Creatinine 2.4H, Estimat Glomerular Filtration Rate , Glucose Level 87, Uric Acid 4.7, Calcium Level 7.3L, Phosphorus Level 2.0L, Total Bilirubin 0.6, Aspartate Amino Transf (AST/SGOT) 22, Alanine Aminotransferase (ALT/SGPT) 10L, Alkaline Phosphatase 94, C-Reactive Protein, Quantitative 2.9H, Pro-B-Type Natriuretic Peptide > 91893R, Total Protein 6.8, Albumin 2.5L, Globulin 4.3, Albumin/Globulin Ratio 0.6L Height (Feet): 4 Height (Inches): 10.00 Weight (Pounds): 129 General Appearance: no apparent distress EENT: normal ENT inspection Neck: supple Cardiovascular: normal rate Respiratory/Chest: decreased breath sounds Abdomen: normal bowel sounds, non tender, soft Extremities: non-tender Efrain Mckeon MD Jun 02, 2019 09:30
--- NOTE | 2019-06-02 10:10 | Pulmonology Progress Note ---
Assessment/Plan Assessment/Plan IMPRESSION: Possible pneumonia Fluid overload Cardiomyopathy, AICD CAD Leukocytosis, possible sepsis, Lactic acidemia RECOMMENDATIONS: Supportive care, empiric antibiotics and follow clinically, respiratory care and monitor for further changes. Hemodialysis with ultrafiltration. Monitor vital signs and hemodynamics. BiPAP p.r.n . Monitor arterial blood gas for further changes. DVT prophylaxis if no bleeding risk at present. I have been asked to assume care per her primary insurance; [facility] Dialysis per renal Diet being advanced On Abx for bacteremia Subjective Interval Events: GI followup noted; pt stsates feeling bettr Constitutional: Reports: no symptoms HEENT: Repors: no symptoms Respiratory: Reports: no symptoms Cardiovascular: Reports: no symptoms Gastrointestinal/Abdominal: Reports: no symptoms Allergies: Coded Allergies: No Known Allergies (Unverified , 05/29/19) Objective Last 24 Hour Vital Signs Date Time Temp Pulse Resp B/P (MAP) Pulse Ox O2 Delivery O2 Flow Rate FiO2 06/02/19 09:36 78 06/02/19 09:09 71 150/87 06/02/19 06:31 150/87 06/02/19 04:00 Nasal Cannula 3.0 06/02/19 04:00 71 06/02/19 04:00 97.9 72 20 121/67 (85) 99 06/02/19 01:30 123/66 06/02/19 00:00 64 06/02/19 00:00 Nasal Cannula 3.0 06/02/19 00:00 97.9 71 20 123/66 (85) 99 06/01/19 21:00 Nasal Cannula 3.0 06/01/19 20:24 60 122/62 06/01/19 20:00 98.2 60 20 122/62 (82) 100 06/01/19 19:25 61 06/01/19 19:05 102 20 100 Nasal Cannula 2.0 28 06/01/19 19:05 100 Nasal Cannula 2.0 28 06/01/19 17:16 123/68 06/01/19 16:00 Nasal Cannula 3.0 06/01/19 16:00 97.7 72 18 123/68 (86) 100 06/01/19 15:28 71 06/01/19 12:00 97.7 74 21 113/63 (80) 100 06/01/19 12:00 Nasal Cannula 3.0 06/01/19 12:00 113/63 06/01/19 11:26 82 Intake and Output 06/01/19 06/02/19 19:00 07:00 Intake Total 175 ml 170 ml Output Total 100 ml 300 ml Balance 75 ml -130 ml Intake Oral 120 ml 60 ml IV Total 55 ml 110 ml Output Urine Total 100 ml 300 ml # Bowel Movements 2 3 General Appearance: no acute distress HEENT: normocephalic Respiratory/Chest: chest wall non-tender, lungs clear Cardiovascular: normal peripheral pulses Abdomen: normal bowel sounds Laboratory Tests 06/02/19 04:35: White Blood Count 6.0, Red Blood Count 3.65L, Hemoglobin 11.1L, Hematocrit 35.8L , Mean Corpuscular Volume 98, Mean Corpuscular Hemoglobin 30.5, Mean Corpuscular Hemoglobin Concent 31.1L, Red Cell Distribution Width 17.8H, Platelet Count 147L, Mean Platelet Volume 6.8, Neutrophils (%) (Auto) 59.2, Lymphocytes (%) (Auto) 23.4, Monocytes (%) (Auto) 10.2H, Eosinophils (%) (Auto) 5.6H, Basophils (%) (Auto) 1.6, Sodium Level 141, Potassium Level 3.3L, Chloride Level 106, Carbon Dioxide Level 26, Anion Gap 9, Blood Urea Nitrogen 16 , Creatinine 2.4H, Estimat Glomerular Filtration Rate , Glucose Level 87, Uric Acid 4.7, Calcium Level 7.3L, Phosphorus Level 2.0L, Total Bilirubin 0.6, Aspartate Amino Transf (AST/SGOT) 22, Alanine Aminotransferase (ALT/SGPT) 10L, Alkaline Phosphatase 94, C-Reactive Protein, Quantitative 2.9H, Pro-B-Type Natriuretic Peptide > 03798G, Total Protein 6.8, Albumin 2.5L, Globulin 4.3, Albumin/Globulin Ratio 0.6L Current Medications Medications (Trade) Dose Ordered Sig/Christophe Route PRN Reason Start Time Stop Time Status Last Admin Dose Admin Acetaminophen (Tylenol) 650 mg Q4H PRN ORAL Mild Pain/Temp > 100.5 05/29/19 09:15 06/28/19 09:14 05/29/19 12:52 Amiodarone HCl (Cordarone) 400 mg DAILY ORAL 06/02/19 09:00 06/28/19 09:14 06/02/19 09:10 Aspirin (ASA) 325 mg DAILY ORAL 05/29/19 09:15 06/28/19 09:14 06/02/19 09:10 Bisacodyl (Dulcolax) 10 mg DAILY PRN RECTAL Constipation, LAST LINE 05/29/19 09:15 06/28/19 09:14 Carvedilol (Coreg) 25 mg EVERY 12 HOURS ORAL 05/31/19 21:00 06/29/19 20:59 06/02/19 09:09 Chlorhexidine Gluconate (Ave-Hex 2%) 1 applic DAILY@1999 TOPIC 06/01/19 20:00 07/01/19 19:59 06/01/19 20:22 Clopidogrel Bisulfate (Plavix) 75 mg DAILY ORAL 05/29/19 09:15 06/28/19 09:14 06/02/19 09:10 Dextrose (Dextrose 50%) 25 ml Q30M PRN IV Hypoglycemia 05/29/19 10:00 06/28/19 09:59 Dextrose (Dextrose 50%) 50 ml Q30M PRN IV Hypoglycemia 05/29/19 10:00 06/28/19 09:59 Docusate Sodium (Colace) 100 mg THREE TIMES A DAY ORAL 05/29/19 18:00 06/28/19 17:59 06/02/19 09:10 Hydralazine HCl (Apresoline) 25 mg Q6HR ORAL 05/31/19 12:00 06/28/19 13:44 06/02/19 06:31 Insulin Aspart (NovoLOG) BEFORE MEALS AND HS SUBQ 05/29/19 11:30 06/28/19 11:29 06/01/19 12:23 Mineral Oil (Fleet's Mineral Oil Enema) 133 ml 3XW PRN RECTAL Constipation 05/29/19 09:15 06/28/19 09:14 Nitroglycerin (Ntg) 0.4 mg Q5MIN X 3 DOSES PRN SL CHEST PAIN 05/29/19 09:15 06/28/19 09:14 Ondansetron HCl (Zofran ODT) 4 mg Q8H PRN ORAL Nausea & Vomiting 05/29/19 09:15 06/28/19 09:14 Pantoprazole (Protonix) 40 mg BID ORAL 05/29/19 18:00 06/28/19 09:59 06/02/19 09:10 Piperacillin Sod/ Tazobactam Sod 2.25 gm/Sodium Chloride 55 ml @ 110 mls/hr Q8H IV 05/30/19 13:00 06/06/19 12:59 06/02/19 05:19 Potassium Phosphate 15 mm/ Sodium Chloride 280 ml @ 46.667 mls/ hr ONCE ONCE IV 06/02/19 11:00 06/02/19 16:59 Povidone Iodine (Betadine Shoshana) 1 applic BEDTIME TOPIC 06/01/19 21:00 06/28/19 09:14 06/01/19 23:01 Vitamin A/Vitamin D (A & D Oint) 1 applic BEDTIME TOPIC 06/01/19 21:00 06/28/19 10:29 Zolpidem Tartrate (Ambien) 5 mg BEDTIME PRN ORAL Insomnia 05/29/19 09:15 06/05/19 09:14 Hermann Martinez MD Jun 02, 2019 10:10
[2019-06-02] MEDS ORDERED: Potassium Phosphate 15 MM in NS 275 ML IV ONE (11:00)
--- NOTE | 2019-06-02 11:00 | NUR ---
NURSE NOTES: Order was noted for Kphos to replacement K level 3.3 and Phos level 2.0 from this AM's lab, per Dr Rosales. Med is being administered as ordered. Family is at bedside. Pt is resting with stable VS and in no apparent distress.
--- NOTE | 2019-06-02 11:03 | Nephrology Progress Note ---
Assessment/Plan Problem List: (1) ESRD (end stage renal disease) (2) Respiratory distress (3) Urinary retention (4) Pulmonary edema (5) Cardiomyopathy Assessment Sepsis ESRD Urine outlet obst, Urinary retention CHF / cardiomyopathy Plan CXR PO Zaroxyllin dialysed early 06/01 for SOB - 2000 cc uf adjust after load reduction and BP meds K and Phos and Mag supplement 2D echo low ej fx ortiz urine studies optimize cardiac and pulmonary status Subjective ROS Limited/Unobtainable: No Constitutional: Reports: malaise Objective Objective Last 24 Hour Vital Signs Date Time Temp Pulse Resp B/P (MAP) Pulse Ox O2 Delivery O2 Flow Rate FiO2 06/02/19 09:36 78 06/02/19 09:09 71 150/87 06/02/19 08:00 97.2 78 20 121/67 (85) 96 06/02/19 08:00 Nasal Cannula 3.0 06/02/19 06:31 150/87 06/02/19 04:00 Nasal Cannula 3.0 06/02/19 04:00 71 06/02/19 04:00 97.9 72 20 121/67 (85) 99 06/02/19 01:30 123/66 06/02/19 00:00 64 06/02/19 00:00 Nasal Cannula 3.0 06/02/19 00:00 97.9 71 20 123/66 (85) 99 06/01/19 21:00 Nasal Cannula 3.0 06/01/19 20:24 60 122/62 06/01/19 20:00 98.2 60 20 122/62 (82) 100 06/01/19 19:25 61 06/01/19 19:05 102 20 100 Nasal Cannula 2.0 28 06/01/19 19:05 100 Nasal Cannula 2.0 28 06/01/19 17:16 123/68 06/01/19 16:00 Nasal Cannula 3.0 06/01/19 16:00 97.7 72 18 123/68 (86) 100 06/01/19 15:28 71 06/01/19 12:00 97.7 74 21 113/63 (80) 100 06/01/19 12:00 Nasal Cannula 3.0 06/01/19 12:00 113/63 06/01/19 11:26 82 Intake and Output 06/01/19 06/02/19 19:00 07:00 Intake Total 175 ml 170 ml Output Total 100 ml 300 ml Balance 75 ml -130 ml Intake Oral 120 ml 60 ml IV Total 55 ml 110 ml Output Urine Total 100 ml 300 ml # Bowel Movements 2 3 Laboratory Tests 06/02/19 04:35: White Blood Count 6.0, Red Blood Count 3.65L, Hemoglobin 11.1L, Hematocrit 35.8L , Mean Corpuscular Volume 98, Mean Corpuscular Hemoglobin 30.5, Mean Corpuscular Hemoglobin Concent 31.1L, Red Cell Distribution Width 17.8H, Platelet Count 147L, Mean Platelet Volume 6.8, Neutrophils (%) (Auto) 59.2, Lymphocytes (%) (Auto) 23.4, Monocytes (%) (Auto) 10.2H, Eosinophils (%) (Auto) 5.6H, Basophils (%) (Auto) 1.6, Sodium Level 141, Potassium Level 3.3L, Chloride Level 106, Carbon Dioxide Level 26, Anion Gap 9, Blood Urea Nitrogen 16 , Creatinine 2.4H, Estimat Glomerular Filtration Rate , Glucose Level 87, Uric Acid 4.7, Calcium Level 7.3L, Phosphorus Level 2.0L, Total Bilirubin 0.6, Aspartate Amino Transf (AST/SGOT) 22, Alanine Aminotransferase (ALT/SGPT) 10L, Alkaline Phosphatase 94, C-Reactive Protein, Quantitative 2.9H, Pro-B-Type Natriuretic Peptide > 23472X, Total Protein 6.8, Albumin 2.5L, Globulin 4.3, Albumin/Globulin Ratio 0.6L Height (Feet): 4 Height (Inches): 10.00 Weight (Pounds): 129 General Appearance: no apparent distress Cardiovascular: normal rate Respiratory/Chest: decreased breath sounds Abdomen: distended Josep Rosales MD Jun 02, 2019 11:03
[2019-06-02 12:00] VITALS: BP 120/56
--- NOTE | 2019-06-02 12:10 | NUR ---
BARISTA: REVIEW SI: PULMONARY EDEMA . URINARY RETENTION . ESRD DIALYZED 06/01 FOR SOB - 2000ML T 97.2 HR 78 RR 20 BP 150/87 SAT 96% NC/3L H/H 11.1/35.8 K 3.3 BNP >00335 IS: ZOSYN IV Q8HR AMIODARONE PO QD HYDRALAZINE PO Q8HR NOVOLOG SUBQ AC+HS K PHOS / NS IVF @ 280ML/HR X1 STEP DOWN STATUS DCP: PATIENT IS FROM [facility]
--- NOTE | 2019-06-02 13:00 | NUR ---
NURSE NOTES: Pt is watching TV with family at bedside. VS stable. Denies any pain or discomfort at this time. Pt was assisted with repositioning.
--- NOTE | 2019-06-02 13:41 | Surgery Progress Note ---
Surgery Progress Note Subjective Additional Comments No acute events. Comfortable, stable. Labs noted. Diet advance as per GI Objective Last 24 Hour Vital Signs Date Time Temp Pulse Resp B/P (MAP) Pulse Ox O2 Delivery O2 Flow Rate FiO2 06/02/19 12:00 98.1 71 20 120/56 (77) 96 06/02/19 12:00 70 06/02/19 12:00 Nasal Cannula 3.0 06/02/19 09:36 78 06/02/19 09:09 71 150/87 06/02/19 08:00 97.2 78 20 121/67 (85) 96 06/02/19 08:00 Nasal Cannula 3.0 06/02/19 06:31 150/87 06/02/19 04:00 Nasal Cannula 3.0 06/02/19 04:00 71 06/02/19 04:00 97.9 72 20 121/67 (85) 99 06/02/19 01:30 123/66 06/02/19 00:00 64 06/02/19 00:00 Nasal Cannula 3.0 06/02/19 00:00 97.9 71 20 123/66 (85) 99 06/01/19 21:00 Nasal Cannula 3.0 06/01/19 20:24 60 122/62 06/01/19 20:00 98.2 60 20 122/62 (82) 100 06/01/19 19:25 61 06/01/19 19:05 102 20 100 Nasal Cannula 2.0 28 06/01/19 19:05 100 Nasal Cannula 2.0 28 06/01/19 17:16 123/68 06/01/19 16:00 Nasal Cannula 3.0 06/01/19 16:00 97.7 72 18 123/68 (86) 100 06/01/19 15:28 71 I&O Intake and Output 06/01/19 06/02/19 19:00 07:00 Intake Total 175 ml 170 ml Output Total 100 ml 300 ml Balance 75 ml -130 ml Intake Oral 120 ml 60 ml IV Total 55 ml 110 ml Output Urine Total 100 ml 300 ml # Bowel Movements 2 3 Dressing: saturated Wound: other Drains: other Cardiovascular: RSR Respiratory: decreased breath sounds Abdomen: soft, present bowel sounds, non-distended Extremities: no cyanosis, other Laboratory Tests Test 06/02/19 04:35 White Blood Count 6.0 K/UL (4.8-10.8) Red Blood Count 3.65 M/UL (4.20-5.40) L Hemoglobin 11.1 G/DL (12.0-16.0) L Hematocrit 35.8 % (37.0-47.0) L Mean Corpuscular Volume 98 FL (80-99) Mean Corpuscular Hemoglobin 30.5 PG (27.0-31.0) Mean Corpuscular Hemoglobin Concent 31.1 G/DL (32.0-36.0) L Red Cell Distribution Width 17.8 % (11.6-14.8) H Platelet Count 147 K/UL (150-450) L Mean Platelet Volume 6.8 FL (6.5-10.1) Neutrophils (%) (Auto) 59.2 % (45.0-75.0) Lymphocytes (%) (Auto) 23.4 % (20.0-45.0) Monocytes (%) (Auto) 10.2 % (1.0-10.0) H Eosinophils (%) (Auto) 5.6 % (0.0-3.0) H Basophils (%) (Auto) 1.6 % (0.0-2.0) Sodium Level 141 MMOL/L (136-145) Potassium Level 3.3 MMOL/L (3.5-5.1) L Chloride Level 106 MMOL/L (98-107) Carbon Dioxide Level 26 MMOL/L (21-32) Anion Gap 9 mmol/L (5-15) Blood Urea Nitrogen 16 mg/dL (7-18) Creatinine 2.4 MG/DL (0.55-1.30) H Estimat Glomerular Filtration Rate mL/min (>60) Glucose Level 87 MG/DL (74-106) Uric Acid 4.7 MG/DL (2.6-7.2) Calcium Level 7.3 MG/DL (8.5-10.1) L Phosphorus Level 2.0 MG/DL (2.5-4.9) L Total Bilirubin 0.6 MG/DL (0.2-1.0) Aspartate Amino Transf (AST/SGOT) 22 U/L (15-37) Alanine Aminotransferase (ALT/SGPT) 10 U/L (12-78) L Alkaline Phosphatase 94 U/L (46-116) C-Reactive Protein, Quantitative 2.9 mg/dL (0.00-0.90) H Pro-B-Type Natriuretic Peptide > 97859 pg/mL (0-125) H Total Protein 6.8 G/DL (6.4-8.2) Albumin 2.5 G/DL (3.4-5.0) L Globulin 4.3 g/dL Albumin/Globulin Ratio 0.6 (1.0-2.7) L Plan Problems: (1) Sacral decubitus ulcer Assessment & Plan: Pt presented on admission with non-blanching erythema without induration to sacrum. Site non-tender when palpated. R heel is boggy with non-blanching erythema. Pt complained of tenderness when palpated.(L)2cm x (W)3.5cm. L heel boggy with non-blanchable erythema with an area within base of wound of wound that is purple. Site is also tender when minimally palpated. (L)3cm x (W) 4cm. Purple/red discoloration noted to distal /lateral L foot and L 5th metatarsal. Pt complained of pain to slightest touch. Tx.Plan: Apply Cavilon Skin Barrier to both heels. Cover each heel with Optifoam drsg. Change every 7 days and prn. Apply Cavilon Skin Barrier to distal/lateral L foot/L 5th metatarsal. Cover with Optifoam drsg. Change every 7 days and prn. Apply Moisture Barrier Paste to Sacrum. Cover with Optifoam drsg. Change every 3 days and prn. Reposition at least every 2hours or as tolerated. Off-load heels with pillow. (2) Malnutrition Assessment & Plan: DAILY ESTIMATED NEEDS: Needs based on ESRD, on HD, wounds/ 47kg abw 30-35 kcals/kg 1492-3599 total kcals 1.25-1.8 g protein/kg 59-85 g total protein 20-22 mL/kg 940-1034 total fluid mLs NUTRITION DIAGNOSIS: Increased kcal/prot needs R/T ESRD as evidenced by pt HD dependent CURRENT DIET:FULL LIQUID PO DIET RECOMMENDATIONS: RENAL/ texture per [employer] ADDITIONAL RECOMMENDATIONS: * Calibrated bedscale wt for accurate CBW * Monitor lytes, replete as needed (low K, phos, and mag) * Nepro BID in b/w meals * Monitor BGs, need for carb controlled diet/ hypoglycemics * Nephrovite x 1 Chris Avila Jun 02, 2019 13:41
[2019-06-02 16:00] VITALS: BP 113/63
--- NOTE | 2019-06-02 16:00 | NUR ---
NURSE NOTES: Pt is resting with stable VS, remains afebrile. Denies any pain or discomfort. O2 Sat remains 98% while pt is on 2L of oxygen via nasal cannula. [place] catheter continues to drain clear/yellow urine. Tele monitor displays NSR with heart rate in the 80's.
--- NOTE | 2019-06-02 16:11 | Infectious Diseases Prog Note ---
Assessment/Plan Assessment/Plan IMPRESSION: 1. Sepsis or systemic inflammatory response syndrome. 2. Congestion, ? pneumonia 3. Hypoxemic respiratory failure. 4. Hyperkalemia. 5. Lactic acidosis. 6. End-stage renal disease on hemodialysis. 7. Diabetes mellitus type 2. 8. Congestive heart failure. 9. Hypertension. 10. Hyperlipidemia. 11. Positive blood culture with CoANS likely contamination RECOMMENDATION: We will continue with Zosyn vancomycin was discontinued Subjective ROS Limited/Unobtainable: Yes Constitutional: Reports: no symptoms Respiratory: Reports: no symptoms Genitourinary: Reports: other - dialysed yesterday, 2000cc water removed Allergies: Coded Allergies: No Known Allergies (Unverified , 05/29/19) Objective Vital Signs Last 24 Hour Vital Signs Date Time Temp Pulse Resp B/P (MAP) Pulse Ox O2 Delivery O2 Flow Rate FiO2 06/02/19 16:00 Nasal Cannula 3.0 06/02/19 14:17 120/56 06/02/19 12:00 98.1 71 20 120/56 (77) 96 06/02/19 12:00 70 06/02/19 12:00 Nasal Cannula 3.0 06/02/19 09:36 78 06/02/19 09:09 71 150/87 06/02/19 08:00 97.2 78 20 121/67 (85) 96 06/02/19 08:00 Nasal Cannula 3.0 06/02/19 06:31 150/87 06/02/19 04:00 Nasal Cannula 3.0 06/02/19 04:00 71 06/02/19 04:00 97.9 72 20 121/67 (85) 99 06/02/19 01:30 123/66 06/02/19 00:00 64 06/02/19 00:00 Nasal Cannula 3.0 06/02/19 00:00 97.9 71 20 123/66 (85) 99 06/01/19 21:00 Nasal Cannula 3.0 06/01/19 20:24 60 122/62 06/01/19 20:00 98.2 60 20 122/62 (82) 100 06/01/19 19:25 61 06/01/19 19:05 102 20 100 Nasal Cannula 2.0 28 06/01/19 19:05 100 Nasal Cannula 2.0 28 10/25/19 17:16 123/68 Height (Feet): 4 Height (Inches): 10.00 Weight (Pounds): 129 General Appearance: no acute distress HEENT: mucous membranes moist Respiratory/Chest: lungs clear Cardiovascular: normal rate, pacemaker/AICD, other - Permacath Abdomen: soft, non tender Extremities: no edema Neurologic/Psychiatric: alert, oriented x 3, responsive Laboratory Tests Test 06/02/19 04:35 White Blood Count 6.0 K/UL (4.8-10.8) Red Blood Count 3.65 M/UL (4.20-5.40) L Hemoglobin 11.1 G/DL (12.0-16.0) L Hematocrit 35.8 % (37.0-47.0) L Mean Corpuscular Volume 98 FL (80-99) Mean Corpuscular Hemoglobin 30.5 PG (27.0-31.0) Mean Corpuscular Hemoglobin Concent 31.1 G/DL (32.0-36.0) L Red Cell Distribution Width 17.8 % (11.6-14.8) H Platelet Count 147 K/UL (150-450) L Mean Platelet Volume 6.8 FL (6.5-10.1) Neutrophils (%) (Auto) 59.2 % (45.0-75.0) Lymphocytes (%) (Auto) 23.4 % (20.0-45.0) Monocytes (%) (Auto) 10.2 % (1.0-10.0) H Eosinophils (%) (Auto) 5.6 % (0.0-3.0) H Basophils (%) (Auto) 1.6 % (0.0-2.0) Sodium Level 141 MMOL/L (136-145) Potassium Level 3.3 MMOL/L (3.5-5.1) L Chloride Level 106 MMOL/L (98-107) Carbon Dioxide Level 26 MMOL/L (21-32) Anion Gap 9 mmol/L (5-15) Blood Urea Nitrogen 16 mg/dL (7-18) Creatinine 2.4 MG/DL (0.55-1.30) H Estimat Glomerular Filtration Rate mL/min (>60) Glucose Level 87 MG/DL (74-106) Uric Acid 4.7 MG/DL (2.6-7.2) Calcium Level 7.3 MG/DL (8.5-10.1) L Phosphorus Level 2.0 MG/DL (2.5-4.9) L Total Bilirubin 0.6 MG/DL (0.2-1.0) Aspartate Amino Transf (AST/SGOT) 22 U/L (15-37) Alanine Aminotransferase (ALT/SGPT) 10 U/L (12-78) L Alkaline Phosphatase 94 U/L (46-116) C-Reactive Protein, Quantitative 2.9 mg/dL (0.00-0.90) H Pro-B-Type Natriuretic Peptide > 73205 pg/mL (0-125) H Total Protein 6.8 G/DL (6.4-8.2) Albumin 2.5 G/DL (3.4-5.0) L Globulin 4.3 g/dL Albumin/Globulin Ratio 0.6 (1.0-2.7) L Current Medications Medications (Trade) Dose Ordered Sig/Christophe Route PRN Reason Start Time Stop Time Status Last Admin Dose Admin Acetaminophen (Tylenol) 650 mg Q4H PRN ORAL Mild Pain/Temp > 100.5 05/29/19 09:15 06/28/19 09:14 05/29/19 12:52 Amiodarone HCl (Cordarone) 400 mg DAILY ORAL 06/02/19 09:00 06/28/19 09:14 06/02/19 09:10 Aspirin (ASA) 325 mg DAILY ORAL 05/29/19 09:15 06/28/19 09:14 06/02/19 09:10 Bisacodyl (Dulcolax) 10 mg DAILY PRN RECTAL Constipation, LAST LINE 05/29/19 09:15 06/28/19 09:14 Carvedilol (Coreg) 25 mg EVERY 12 HOURS ORAL 05/31/19 21:00 06/29/19 20:59 06/02/19 09:09 Chlorhexidine Gluconate (Ave-Hex 2%) 1 applic DAILY@1999 TOPIC 06/01/19 20:00 07/01/19 19:59 06/01/19 20:22 Clopidogrel Bisulfate (Plavix) 75 mg DAILY ORAL 05/29/19 09:15 06/28/19 09:14 06/02/19 09:10 Dextrose (Dextrose 50%) 25 ml Q30M PRN IV Hypoglycemia 05/29/19 10:00 06/28/19 09:59 Dextrose (Dextrose 50%) 50 ml Q30M PRN IV Hypoglycemia 05/29/19 10:00 06/28/19 09:59 Docusate Sodium (Colace) 100 mg THREE TIMES A DAY ORAL 05/29/19 18:00 06/28/19 17:59 06/02/19 09:10 Hydralazine HCl (Apresoline) 50 mg Q8HR ORAL 06/02/19 14:00 06/28/19 13:44 06/02/19 14:17 Insulin Aspart (NovoLOG) BEFORE MEALS AND HS SUBQ 05/29/19 11:30 06/28/19 11:29 06/01/19 12:23 Mineral Oil (Fleet's Mineral Oil Enema) 133 ml 3XW PRN RECTAL Constipation 05/29/19 09:15 06/28/19 09:14 Nitroglycerin (Ntg) 0.4 mg Q5MIN X 3 DOSES PRN SL CHEST PAIN 05/29/19 09:15 06/28/19 09:14 Ondansetron HCl (Zofran ODT) 4 mg Q8H PRN ORAL Nausea & Vomiting 05/29/19 09:15 06/28/19 09:14 Pantoprazole (Protonix) 40 mg BID ORAL 05/29/19 18:00 06/28/19 09:59 06/02/19 09:10 Piperacillin Sod/ Tazobactam Sod 2.25 gm/Sodium Chloride 55 ml @ 110 mls/hr Q8H IV 05/30/19 13:00 06/06/19 12:59 06/02/19 11:28 Potassium Phosphate 15 mm/ Sodium Chloride 280 ml @ 46.667 mls/ hr ONCE ONCE IV 06/02/19 11:00 06/02/19 16:59 06/02/19 11:28 Povidone Iodine (Betadine Shoshana) 1 applic BEDTIME TOPIC 06/01/19 21:00 06/28/19 09:14 06/01/19 23:01 Vitamin A/Vitamin D (A & D Oint) 1 applic BEDTIME TOPIC 06/01/19 21:00 06/28/19 10:29 Zolpidem Tartrate (Ambien) 5 mg BEDTIME PRN ORAL Insomnia 05/29/19 09:15 06/05/19 09:14 William Dailey MD Jun 02, 2019 16:11
[2019-06-02] MEDS ORDERED: Tubing IV Secondary IV ONE (16:17)
[2019-06-02] MEDS ORDERED: NS 275ml ONE (16:17)
--- NOTE | 2019-06-02 17:07 | Cardiac Electrophysiology PN ---
Assessment/Plan Assessment/Plan 1. Status post [employer] ICD implantation at [facility] on 05/22. Patient had VT and ATP and then ICD shock 05/30/19. ICD interrogation confirmed the VT and appropriate therapy No further shock on Amiodarone 400 mg po daily 2. Coronary artery disease s/p DESx 2 in prox-mid RCA and ostial R PL placement on 05/19/19. S/P JOSE mid LAD and mid Cx on 05/17/19 No CP on aspirin, Plavix, and Toprol-XL 25 mg daily. 3. Ischemic cardiomyopathy. EF 35%. The patient is on lisinopril 20 mg daily and metoprolol as well as hemodialysis. 4. PAF .On Amiodarone 400 daily 5. End-stage renal disease, on hemodialysis. 6. Fever and sepsis. The patient is on vancomycin and Zosyn. JARRED RN Subjective Subjective Had shock from ICD for VT that converted to SR on 05/30/19. No more ICD shock. at bedside Objective Last 24 Hour Vital Signs Date Time Temp Pulse Resp B/P (MAP) Pulse Ox O2 Delivery O2 Flow Rate FiO2 06/02/19 16:00 69 06/02/19 16:00 Nasal Cannula 3.0 06/02/19 14:17 120/56 06/02/19 12:00 98.1 71 20 120/56 (77) 96 06/02/19 12:00 70 06/02/19 12:00 Nasal Cannula 3.0 06/02/19 09:36 78 06/02/19 09:09 71 150/87 06/02/19 08:00 97.2 78 20 121/67 (85) 96 06/02/19 08:00 Nasal Cannula 3.0 06/02/19 06:31 150/87 06/02/19 04:00 Nasal Cannula 3.0 06/02/19 04:00 71 06/02/19 04:00 97.9 72 20 121/67 (85) 99 06/02/19 01:30 123/66 06/02/19 00:00 64 06/02/19 00:00 Nasal Cannula 3.0 06/02/19 00:00 97.9 71 20 123/66 (85) 99 06/01/19 21:00 Nasal Cannula 3.0 06/01/19 20:24 60 122/62 06/01/19 20:00 98.2 60 20 122/62 (82) 100 06/01/19 19:25 61 06/01/19 19:05 102 20 100 Nasal Cannula 2.0 28 06/01/19 19:05 100 Nasal Cannula 2.0 28 06/01/19 17:16 123/68 Intake and Output 06/01/19 06/02/19 19:00 07:00 Intake Total 175 ml 170 ml Output Total 100 ml 300 ml Balance 75 ml -130 ml Intake Oral 120 ml 60 ml IV Total 55 ml 110 ml Output Urine Total 100 ml 300 ml # Bowel Movements 2 3 Laboratory Tests Test 06/02/19 04:35 White Blood Count 6.0 K/UL (4.8-10.8) Red Blood Count 3.65 M/UL (4.20-5.40) L Hemoglobin 11.1 G/DL (12.0-16.0) L Hematocrit 35.8 % (37.0-47.0) L Mean Corpuscular Volume 98 FL (80-99) Mean Corpuscular Hemoglobin 30.5 PG (27.0-31.0) Mean Corpuscular Hemoglobin Concent 31.1 G/DL (32.0-36.0) L Red Cell Distribution Width 17.8 % (11.6-14.8) H Platelet Count 147 K/UL (150-450) L Mean Platelet Volume 6.8 FL (6.5-10.1) Neutrophils (%) (Auto) 59.2 % (45.0-75.0) Lymphocytes (%) (Auto) 23.4 % (20.0-45.0) Monocytes (%) (Auto) 10.2 % (1.0-10.0) H Eosinophils (%) (Auto) 5.6 % (0.0-3.0) H Basophils (%) (Auto) 1.6 % (0.0-2.0) Sodium Level 141 MMOL/L (136-145) Potassium Level 3.3 MMOL/L (3.5-5.1) L Chloride Level 106 MMOL/L (98-107) Carbon Dioxide Level 26 MMOL/L (21-32) Anion Gap 9 mmol/L (5-15) Blood Urea Nitrogen 16 mg/dL (7-18) Creatinine 2.4 MG/DL (0.55-1.30) H Estimat Glomerular Filtration Rate mL/min (>60) Glucose Level 87 MG/DL (74-106) Uric Acid 4.7 MG/DL (2.6-7.2) Calcium Level 7.3 MG/DL (8.5-10.1) L Phosphorus Level 2.0 MG/DL (2.5-4.9) L Total Bilirubin 0.6 MG/DL (0.2-1.0) Aspartate Amino Transf (AST/SGOT) 22 U/L (15-37) Alanine Aminotransferase (ALT/SGPT) 10 U/L (12-78) L Alkaline Phosphatase 94 U/L (46-116) C-Reactive Protein, Quantitative 2.9 mg/dL (0.00-0.90) H Pro-B-Type Natriuretic Peptide > 92389 pg/mL (0-125) H Total Protein 6.8 G/DL (6.4-8.2) Albumin 2.5 G/DL (3.4-5.0) L Globulin 4.3 g/dL Albumin/Globulin Ratio 0.6 (1.0-2.7) L Objective HEAD AND NECK: Positive JVD. LUNGS: Decreased breath sounds. CARDIOVASCULAR: Regular S1 and S2 with no gallop. Defibrillator is in the right subclavian and incision is intact. The Frankie catheter is in the left subclavian. ABDOMEN: Soft. EXTREMITIES: No pitting edema. Prosper Rao MD Jun 02, 2019 17:07
--- NOTE | 2019-06-02 18:00 | NUR ---
NURSE NOTES: Pt is having dinner with family at beside. Denies any pain or discomfort at this time. Pt was assisted with repositioning. VS stable.
--- NOTE | 2019-06-02 19:24 | NUR ---
HAND-OFF: Report given to Germaine GLASS/Shira GLASS. Endorsed plan of care. Family at bedside.
--- NOTE | 2019-06-02 19:25 | NUR ---
NURSE NOTES: Received change from Shanita GLASS. Pt is awake, alert, oriented x4, Cymro speaking, pt has family at bedside. Pt is on 3L of oxygen via nasal cannula with 98%O2Sat. Pt has left FA #22G peripheral IV access and left chest permacath for dialysis access, both dry/intact/patent. Pt has Dallas catheter, draining clear/yellow urine. Bilateral heel DTIs and sacral mild erythema noted. Both heels and sacrum covered with optifoam dressings for protection. Bed is locked with three side rails up, in lowest position, safety wheels engaged, call light within easy reach and bed alarm activated. Will continue to monitor pt and follow plan of care.
[2019-06-02 20:00] VITALS: BP 125/80
[2019-06-02] MEDS: Dyna-Hex 2% Top Sol 2oz TOPIC SCH (20:13)
[2019-06-02] MEDS: Vitamin A&D Oint Tube TOPIC SCH (20:14)
[2019-06-02] MEDS: Betadine 4oz Bottle TOPIC SCH (20:15)
--- NOTE | 2019-06-02 20:30 | NUR ---
NURSE NOTES: Patient provided with a CHG bed bath, oral care and linen change. Patient tolerated care well. Patient remains resting in bed. Bed is in lowest position with safety wheels engaged, rails up x3, call light within reach and bed alarm set. Family remains at bed side. Patient education provided regarding repositioning, medications and diet. Patient and family verbalize understanding.
--- NOTE | 2019-06-02 22:00 | NUR ---
NURSE NOTES: Changed IV catheter dressing. Dressing is clean, dry and intact IV catheter remains patent and asymptomatic. Patient tolerated care well. Patient remains resting in bed. Bed is in lowest position with safety wheels engaged, rails up x3, call light within reach and bed alarm set. Family remains at bed side. Will continue to monitor.
--- NOTE | 2019-06-02 23:13 | NUR ---
NURSE NOTES: Patient provided with a bed bath and linen change. Patient tolerated care well. Patient remains resting in bed. Bed is in lowest position with safety wheels engaged, rails up x3, call light within reach and bed alarm set. Family remains at bed side. Will continue to monitor.
[2019-06-03] VITALS: BP 126/70
--- NOTE | 2019-06-03 00:33 | NUR ---
NURSE NOTES: Pt notes SOB while at rest, O2 saturation 98% but respiratory rate recorded at 30. BiPap applied per order, patient continues to sat at 99% and respiratory rate has decreased to 18. Will continue to monitor.
--- NOTE | 2019-06-03 01:49 | NUR ---
NURSE NOTES: Patient on Bipap O2 saturation is currently at 100% and respiratory rate is 18. Patient is sleeping in bed. Bed remains in the lowest position, safety wheels engaged, side rails up x3, call light within reach and bed alarm activated. Daughter in law remains at bedside. Will continue to monitor.
--- NOTE | 2019-06-03 02:54 | NUR ---
NURSE NOTES: Patient requested to be switched back to nasal cannula O2 saturation is currently at 100% and respiratory rate is 17. No signs of respiratory distress noted. Patient continues to deny pain/chest pain. Patient is resting in bed. Bed remains in the lowest position, safety wheels engaged, side rails up x3, call light within reach and bed alarm activated. Daughter in law remains at bedside. Will continue to monitor.
[2019-06-03 04:00] VITALS: BP 132/74
[2019-06-03] MEDS: Piperacillin/Tazobactam 2.25 GM in NS 55 ML IV SCH ×3 (04:02→20:46)
[2019-06-03] MEDS: HydrALAZINE 10mg Tab ORAL SCH (06:05)
[2019-06-03] MEDS: NovoLOG Insulin Flexpen SUBQ SCH ×4 (06:06→20:49)
[2019-06-03 06:49] LABS: EOSINOPHILS % (AUTO) 5.2 % (0.0-3.0); HEMATOCRIT 34.4 % (37.0-47.0); LYMPHOCYTES % (AUTO) 18.9 % (20.0-45.0); MEAN CORPUSCULAR VOLUME 97 FL (80-99); MONOCYTES % (AUTO) 9.3 % (1.0-10.0); NEUTROPHILS % (AUTO) 64.5 % (45.0-75.0); PLATELET COUNT 149 K/UL (150-450); RED BLOOD COUNT 3.56 M/UL (4.20-5.40); RED CELL DISTRIBUTION WIDTH 17.8 % (11.6-14.8); WHITE BLOOD COUNT 8.3 K/UL (4.8-10.8)
--- NOTE | 2019-06-03 07:13 | NUR ---
HAND-OFF: Report given to QUAN Way. No acute distress noted at this time.
--- NOTE | 2019-06-03 07:14 | NUR ---
NURSE NOTES: RECEIVED PATIENT FROM Sheron IQBAL RN. PATIENT IS LYING IN BED, AWAKE AND RESPONSIVE. BERMUDIAN SPEAKING. DENIES ANY PAIN OF THE MOMENT. DGT-IN-LAW SEEN AT THE BEDSIDE. HOOKED TO SYSTEM SUPPORT TECHNICIAN. ON OXYGEN AT 3L VIA NC. NO SIGNSOF DISTRESS OF THE MOMENT. WINSTON NOTED CONNECTED BAG, PATENT AND DRAINING URINE. NOTED SKIN ALTERATION. IV ON L AC, G22, SL. CALL LIGHT WITHIN REACH. BED AT LOWEST POSITION. SIDE RAILS UP. WILL CONTINUE TO MONITOR,
[2019-06-03 07:31] LABS: ALANINE AMINOTRANSFERASE 12 U/L (12-78); ALBUMIN 2.5 G/DL (3.4-5.0); ALBUMIN/GLOBULIN RATIO 0.6 (1.0-2.7); ALKALINE PHOSPHATASE 94 U/L (46-116); ANION GAP 14 mmol/L (5-15); ASPARTATE AMINO TRANSFERASE 26 U/L (15-37); BILIRUBIN,TOTAL 0.4 MG/DL (0.2-1.0); BLOOD UREA NITROGEN 17 mg/dL (7-18); CALCIUM 6.8 MG/DL (8.5-10.1); CARBON DIOXIDE 21 MMOL/L (21-32); CHLORIDE 105 MMOL/L (98-107); CREATININE 2.6 MG/DL (0.55-1.30); POTASSIUM 3.7 MMOL/L (3.5-5.1); SODIUM 140 MMOL/L (136-145)
[2019-06-03 08:00] VITALS: BP 142/75
--- NOTE | 2019-06-03 08:29 | Cardiac Electrophysiology PN ---
Assessment/Plan Assessment/Plan 1. Status post [employer] ICD implantation at [facility] on 05/22. Patient had VT and ATP and then ICD shock 05/30/19. ICD interrogation confirmed the VT and appropriate therapy No further shock on Amiodarone 400 mg po daily 2. Coronary artery disease s/p DESx 2 in prox-mid RCA and ostial R PL placement on 05/19/19. S/P JOSE mid LAD and mid Cx on 05/17/19 No CP on aspirin, Plavix, and Toprol-XL 25 mg daily. 3. Ischemic cardiomyopathy. EF 35%. The patient is on lisinopril 20 mg daily and metoprolol as well as hemodialysis. 4. PAF .On Amiodarone 400 daily 5. End-stage renal disease, on hemodialysis. 6. Fever and sepsis. The patient is on vancomycin and Zosyn. JARRED RN Subjective Subjective No further VT or ICD shock. Had shock from ICD for VT that converted to SR on . at bedside Objective Last 24 Hour Vital Signs Date Time Temp Pulse Resp B/P (MAP) Pulse Ox O2 Delivery O2 Flow Rate FiO2 06/03/19 06:05 132/74 06/03/19 04:00 Nasal Cannula 3.0 06/03/19 04:00 97.3 77 18 132/74 (93) 100 06/03/19 03:45 76 06/03/19 02:55 3.0 06/03/19 00:53 50 06/03/19 00:33 50 06/03/19 00:00 71 06/03/19 00:00 Bi-pap 06/03/19 00:00 97.7 74 20 126/70 (88) 100 06/02/19 21:16 125/80 06/02/19 20:14 76 125/80 06/02/19 20:00 Nasal Cannula 3.0 06/02/19 20:00 97.4 76 18 125/80 (95) 99 06/02/19 19:23 76 06/02/19 18:40 100 Nasal Cannula 3.0 32 06/02/19 18:40 80 18 100 Nasal Cannula 3.0 32 06/02/19 16:00 69 06/02/19 16:00 98.1 71 19 113/63 (80) 96 06/02/19 16:00 Nasal Cannula 3.0 06/02/19 14:17 120/56 06/02/19 12:00 98.1 71 20 120/56 (77) 96 06/02/19 12:00 70 06/02/19 12:00 Nasal Cannula 3.0 06/02/19 09:36 78 06/02/19 09:09 71 150/87 Intake and Output 06/02/19 06/03/19 19:00 07:00 Intake Total 630.002 ml 170 ml Output Total 400 ml 300 ml Balance 230.002 ml -130 ml Intake Oral 240 ml 60 ml IV Total 390.002 ml 110 ml Output Urine Total 400 ml 300 ml # Bowel Movements 3 3 Laboratory Tests Test 06/03/19 04:33 White Blood Count 8.3 K/UL (4.8-10.8) Red Blood Count 3.56 M/UL (4.20-5.40) L Hemoglobin 11.0 G/DL (12.0-16.0) L Hematocrit 34.4 % (37.0-47.0) L Mean Corpuscular Volume 97 FL (80-99) Mean Corpuscular Hemoglobin 30.8 PG (27.0-31.0) Mean Corpuscular Hemoglobin Concent 31.8 G/DL (32.0-36.0) L Red Cell Distribution Width 17.8 % (11.6-14.8) H Platelet Count 149 K/UL (150-450) L Mean Platelet Volume 7.1 FL (6.5-10.1) Neutrophils (%) (Auto) 64.5 % (45.0-75.0) Lymphocytes (%) (Auto) 18.9 % (20.0-45.0) L Monocytes (%) (Auto) 9.3 % (1.0-10.0) Eosinophils (%) (Auto) 5.2 % (0.0-3.0) H Basophils (%) (Auto) 2.0 % (0.0-2.0) Sodium Level 140 MMOL/L (136-145) Potassium Level 3.7 MMOL/L (3.5-5.1) Chloride Level 105 MMOL/L (98-107) Carbon Dioxide Level 21 MMOL/L (21-32) Anion Gap 14 mmol/L (5-15) Blood Urea Nitrogen 17 mg/dL (7-18) Creatinine 2.6 MG/DL (0.55-1.30) H Estimat Glomerular Filtration Rate mL/min (>60) Glucose Level 83 MG/DL (74-106) Uric Acid 5.7 MG/DL (2.6-7.2) Calcium Level 6.8 MG/DL (8.5-10.1) L Phosphorus Level 3.0 MG/DL (2.5-4.9) Magnesium Level 1.9 MG/DL (1.8-2.4) Total Bilirubin 0.4 MG/DL (0.2-1.0) Aspartate Amino Transf (AST/SGOT) 26 U/L (15-37) Alanine Aminotransferase (ALT/SGPT) 12 U/L (12-78) Alkaline Phosphatase 94 U/L (46-116) C-Reactive Protein, Quantitative 2.1 mg/dL (0.00-0.90) H Pro-B-Type Natriuretic Peptide > 52535 pg/mL (0-125) H Total Protein 6.6 G/DL (6.4-8.2) Albumin 2.5 G/DL (3.4-5.0) L Globulin 4.1 g/dL Albumin/Globulin Ratio 0.6 (1.0-2.7) L Objective HEAD AND NECK: Positive JVD. LUNGS: Decreased breath sounds. CARDIOVASCULAR: Regular S1 and S2 with no gallop. Defibrillator is in the right subclavian and incision is intact. The Frankie catheter is in the left subclavian. ABDOMEN: Soft. EXTREMITIES: No pitting edema. Prosper Rao MD Jun 03, 2019 08:29
--- NOTE | 2019-06-03 08:44 | Pulmonology Progress Note ---
Assessment/Plan Assessment/Plan IMPRESSION: Possible pneumonia Fluid overload Cardiomyopathy, AICD CAD Leukocytosis, possible sepsis, Lactic acidemia Bacteremia? contaminant RECOMMENDATIONS: Supportive care, empiric antibiotics and follow clinically, respiratory care and monitor for further changes. Hemodialysis with ultrafiltration. Monitor vital signs and hemodynamics. BiPAP p.r.n . I have been asked to assume care per her primary insurance; [facility] Dialysis per renal Diet being advanced On Abx for bacteremia Will discuss with ID re dc abx DC planning Subjective Interval Events: Looking and feeling better Constitutional: Reports: no symptoms HEENT: Repors: no symptoms Respiratory: Reports: no symptoms Cardiovascular: Reports: no symptoms Gastrointestinal/Abdominal: Reports: no symptoms Genitourinary: Reports: no symptoms Allergies: Coded Allergies: No Known Allergies (Unverified , 05/29/19) Objective Last 24 Hour Vital Signs Date Time Temp Pulse Resp B/P (MAP) Pulse Ox O2 Delivery O2 Flow Rate FiO2 06/03/19 08:00 98.0 84 24 142/75 (97) 100 06/03/19 08:00 85 06/03/19 06:05 132/74 06/03/19 04:00 Nasal Cannula 3.0 06/03/19 04:00 97.3 77 18 132/74 (93) 100 06/03/19 03:45 76 06/03/19 02:55 3.0 06/03/19 00:53 50 06/03/19 00:33 50 06/03/19 00:00 71 06/03/19 00:00 Bi-pap 06/03/19 00:00 97.7 74 20 126/70 (88) 100 06/02/19 21:16 125/80 06/02/19 20:14 76 125/80 06/02/19 20:00 Nasal Cannula 3.0 06/02/19 20:00 97.4 76 18 125/80 (95) 99 06/02/19 19:23 76 06/02/19 18:40 100 Nasal Cannula 3.0 32 06/02/19 18:40 80 18 100 Nasal Cannula 3.0 32 06/02/19 16:00 69 06/02/19 16:00 98.1 71 19 113/63 (80) 96 06/02/19 16:00 Nasal Cannula 3.0 06/02/19 14:17 120/56 06/02/19 12:00 98.1 71 20 120/56 (77) 96 06/02/19 12:00 70 06/02/19 12:00 Nasal Cannula 3.0 06/02/19 09:36 78 06/02/19 09:09 71 150/87 Intake and Output 06/02/19 06/03/19 19:00 07:00 Intake Total 630.002 ml 170 ml Output Total 400 ml 300 ml Balance 230.002 ml -130 ml Intake Oral 240 ml 60 ml IV Total 390.002 ml 110 ml Output Urine Total 400 ml 300 ml # Bowel Movements 3 3 General Appearance: no acute distress HEENT: normocephalic Respiratory/Chest: chest wall non-tender Cardiovascular: normal peripheral pulses Abdomen: normal bowel sounds Laboratory Tests 06/03/19 04:33: White Blood Count 8.3, Red Blood Count 3.56L, Hemoglobin 11.0L, Hematocrit 34.4L , Mean Corpuscular Volume 97, Mean Corpuscular Hemoglobin 30.8, Mean Corpuscular Hemoglobin Concent 31.8L, Red Cell Distribution Width 17.8H, Platelet Count 149L, Mean Platelet Volume 7.1, Neutrophils (%) (Auto) 64.5, Lymphocytes (%) (Auto) 18.9L, Monocytes (%) (Auto) 9.3, Eosinophils (%) (Auto) 5.2H, Basophils (%) (Auto) 2.0, Sodium Level 140, Potassium Level 3.7, Chloride Level 105, Carbon Dioxide Level 21, Anion Gap 14, Blood Urea Nitrogen 17, Creatinine 2.6H, Estimat Glomerular Filtration Rate , Glucose Level 83, Uric Acid 5.7, Calcium Level 6.8L, Phosphorus Level 3.0, Magnesium Level 1.9, Total Bilirubin 0.4, Aspartate Amino Transf (AST/SGOT) 26, Alanine Aminotransferase ( ALT/SGPT) 12, Alkaline Phosphatase 94, C-Reactive Protein, Quantitative 2.1H, Pro-B-Type Natriuretic Peptide > [id number], Total Protein 6.6, Albumin 2.5L, Globulin 4.1, Albumin/Globulin Ratio 0.6L Current Medications Medications (Trade) Dose Ordered Sig/Christophe Route PRN Reason Start Time Stop Time Status Last Admin Dose Admin Acetaminophen (Tylenol) 650 mg Q4H PRN ORAL Mild Pain/Temp > 100.5 05/29/19 09:15 06/28/19 09:14 05/29/19 12:52 Amiodarone HCl (Cordarone) 400 mg DAILY ORAL 06/02/19 09:00 06/28/19 09:14 06/02/19 09:10 Aspirin (ASA) 325 mg DAILY ORAL 05/29/19 09:15 06/28/19 09:14 06/02/19 09:10 Bisacodyl (Dulcolax) 10 mg DAILY PRN RECTAL Constipation, LAST LINE 05/29/19 09:15 06/28/19 09:14 Carvedilol (Coreg) 25 mg EVERY 12 HOURS ORAL 05/31/19 21:00 06/29/19 20:59 06/02/19 20:14 Chlorhexidine Gluconate (Ave-Hex 2%) 1 applic DAILY@1999 TOPIC 06/01/19 20:00 07/01/19 19:59 06/02/19 20:13 Clopidogrel Bisulfate (Plavix) 75 mg DAILY ORAL 05/29/19 09:15 06/28/19 09:14 06/02/19 09:10 Dextrose (Dextrose 50%) 25 ml Q30M PRN IV Hypoglycemia 05/29/19 10:00 06/28/19 09:59 Dextrose (Dextrose 50%) 50 ml Q30M PRN IV Hypoglycemia 05/29/19 10:00 06/28/19 09:59 Docusate Sodium (Colace) 100 mg THREE TIMES A DAY ORAL 05/29/19 18:00 06/28/19 17:59 06/02/19 16:51 Hydralazine HCl (Apresoline) 50 mg Q8HR ORAL 06/02/19 14:00 06/28/19 13:44 06/03/19 06:05 Insulin Aspart (NovoLOG) BEFORE MEALS AND HS SUBQ 05/29/19 11:30 06/28/19 11:29 06/01/19 12:23 Mineral Oil (Fleet's Mineral Oil Enema) 133 ml 3XW PRN RECTAL Constipation 05/29/19 09:15 06/28/19 09:14 Nitroglycerin (Ntg) 0.4 mg Q5MIN X 3 DOSES PRN SL CHEST PAIN 05/29/19 09:15 06/28/19 09:14 Ondansetron HCl (Zofran ODT) 4 mg Q8H PRN ORAL Nausea & Vomiting 05/29/19 09:15 06/28/19 09:14 Pantoprazole (Protonix) 40 mg BID ORAL 05/29/19 18:00 06/28/19 09:59 06/02/19 16:51 Piperacillin Sod/ Tazobactam Sod 2.25 gm/Sodium Chloride 55 ml @ 110 mls/hr Q8H IV 05/30/19 13:00 06/06/19 12:59 06/03/19 04:02 Povidone Iodine (Betadine Shoshana) 1 applic BEDTIME TOPIC 06/01/19 21:00 06/28/19 09:14 06/02/19 20:15 Vitamin A/Vitamin D (A & D Oint) 1 applic BEDTIME TOPIC 06/01/19 21:00 06/28/19 10:29 06/02/19 20:14 Zolpidem Tartrate (Ambien) 5 mg BEDTIME PRN ORAL Insomnia 05/29/19 09:15 06/05/19 09:14 Hermann Martinez MD Jun 03, 2019 08:44
[2019-06-03] MEDS: Amiodarone 200mg tab ORAL SCH (09:00)
[2019-06-03] MEDS: Docusate 100mg cap ORAL SCH ×3 (09:00→17:10)
[2019-06-03] MEDS: Carvedilol 25mg Tab ORAL SCH ×2 (09:00→20:50)
--- NOTE | 2019-06-03 09:30 | Diagnostic Imaging Report ---
EXAM: XR Chest, 1 View CLINICAL HISTORY: COUGH TECHNIQUE: Frontal view of the chest. COMPARISON: Chest x-rays dated 05 30 19 FINDINGS: Lungs: Persistent perihilar pulmonary edema, not significantly changed. Subsegmental atelectasis in the lung bases, with interval improved aeration in the left lung base. Pleural space: Bilateral small pleural effusions, unchanged. Heart: Cardiac silhouette is mildly enlarged, however may be magnified by portable AP technique. Mediastinum: Unremarkable. Bones joints: Unremarkable. Vasculature: Atherosclerotic calcifications are noted within the aortic arch. Tubes, lines and devices: Right-sided pacer ICD with lead tips in the right atrium and right ventricle regions. IMPRESSION: 1. No significant change in the perihilar pulmonary edema. 2. Subsegmental atelectasis in the lung bases, with interval improved aeration in the left lung base. 3. Bilateral small pleural effusions, unchanged.
--- NOTE | 2019-06-03 10:12 | NUR ---
NURSE NOTES: PATIENT KEPT CLEAN AND DRY. NOTED SOFT BM. ON OVERLAY MATTRESS. WILL CONTINUE TO MONITOR.
--- NOTE | 2019-06-03 11:15 | General Progress Note ---
Assessment/Plan Assessment/Plan: Assessment - abnormal LFT - resolved - GB sludge - resp failure - arrhythmia, s/p AICD - CAD, s/p Stent - ESRD/HD - DM - HTN Recommendations - advance to pureed diet, Renal - aspiration precautions - push po - Periodic LFT - f/u hepatitis serologies - negative - elevate HOB Subjective ROS Limited/Unobtainable: No Allergies: Coded Allergies: No Known Allergies (Unverified , 05/29/19) Objective Last 24 Hour Vital Signs Date Time Temp Pulse Resp B/P (MAP) Pulse Ox O2 Delivery O2 Flow Rate FiO2 06/03/19 09:00 85 142/75 06/03/19 08:00 98.0 84 24 142/75 (97) 100 06/03/19 08:00 Nasal Cannula 3.0 06/03/19 08:00 85 06/03/19 06:05 132/74 06/03/19 04:00 Nasal Cannula 3.0 06/03/19 04:00 97.3 77 18 132/74 (93) 100 06/03/19 03:45 76 06/03/19 02:55 3.0 06/03/19 00:53 50 06/03/19 00:33 50 06/03/19 00:00 71 06/03/19 00:00 Bi-pap 06/03/19 00:00 97.7 74 20 126/70 (88) 100 06/02/19 21:16 125/80 06/02/19 20:14 76 125/80 06/02/19 20:00 Nasal Cannula 3.0 06/02/19 20:00 97.4 76 18 125/80 (95) 99 06/02/19 19:23 76 06/02/19 18:40 100 Nasal Cannula 3.0 32 06/02/19 18:40 80 18 100 Nasal Cannula 3.0 32 06/02/19 16:00 69 06/02/19 16:00 98.1 71 19 113/63 (80) 96 06/02/19 16:00 Nasal Cannula 3.0 06/02/19 14:17 120/56 06/02/19 12:00 98.1 71 20 120/56 (77) 96 06/02/19 12:00 70 06/02/19 12:00 Nasal Cannula 3.0 Intake and Output 06/02/19 06/03/19 19:00 07:00 Intake Total 630.002 ml 170 ml Output Total 400 ml 300 ml Balance 230.002 ml -130 ml Intake Oral 240 ml 60 ml IV Total 390.002 ml 110 ml Output Urine Total 400 ml 300 ml # Bowel Movements 3 3 Laboratory Tests 06/03/19 04:33: White Blood Count 8.3, Red Blood Count 3.56L, Hemoglobin 11.0L, Hematocrit 34.4L , Mean Corpuscular Volume 97, Mean Corpuscular Hemoglobin 30.8, Mean Corpuscular Hemoglobin Concent 31.8L, Red Cell Distribution Width 17.8H, Platelet Count 149L, Mean Platelet Volume 7.1, Neutrophils (%) (Auto) 64.5, Lymphocytes (%) (Auto) 18.9L, Monocytes (%) (Auto) 9.3, Eosinophils (%) (Auto) 5.2H, Basophils (%) (Auto) 2.0, Sodium Level 140, Potassium Level 3.7, Chloride Level 105, Carbon Dioxide Level 21, Anion Gap 14, Blood Urea Nitrogen 17, Creatinine 2.6H, Estimat Glomerular Filtration Rate , Glucose Level 83, Uric Acid 5.7, Calcium Level 6.8L, Phosphorus Level 3.0, Magnesium Level 1.9, Total Bilirubin 0.4, Aspartate Amino Transf (AST/SGOT) 26, Alanine Aminotransferase ( ALT/SGPT) 12, Alkaline Phosphatase 94, C-Reactive Protein, Quantitative 2.1H, Pro-B-Type Natriuretic Peptide > 95386G, Total Protein 6.6, Albumin 2.5L, Globulin 4.1, Albumin/Globulin Ratio 0.6L Height (Feet): 4 Height (Inches): 10.00 Weight (Pounds): 129 General Appearance: no apparent distress EENT: normal ENT inspection Neck: supple Cardiovascular: normal peripheral pulses Respiratory/Chest: decreased breath sounds Abdomen: normal bowel sounds, non tender, soft Extremities: non-tender Efrain Mckeon MD Jun 03, 2019 11:15
--- NOTE | 2019-06-03 11:37 | Nephrology Progress Note ---
Assessment/Plan Problem List: (1) ESRD (end stage renal disease) (2) Respiratory distress (3) Urinary retention (4) Pulmonary edema (5) Cardiomyopathy Assessment Sepsis ESRD Urine outlet obst, Urinary retention CHF / cardiomyopathy Plan CXR PO Zaroxyllin Calcium supplement with Vit D dialysed early 06/01 for SOB - 2000 cc uf adjust after load reduction and BP meds K and Phos and Mag supplement 2D echo low ej fx ortiz urine studies optimize cardiac and pulmonary status Subjective ROS Limited/Unobtainable: No Constitutional: Reports: malaise Objective Objective Last 24 Hour Vital Signs Date Time Temp Pulse Resp B/P (MAP) Pulse Ox O2 Delivery O2 Flow Rate FiO2 06/03/19 09:00 85 142/75 06/03/19 08:00 98.0 84 24 142/75 (97) 100 06/03/19 08:00 Nasal Cannula 3.0 06/03/19 08:00 85 06/03/19 06:05 132/74 06/03/19 04:00 Nasal Cannula 3.0 06/03/19 04:00 97.3 77 18 132/74 (93) 100 06/03/19 03:45 76 06/03/19 02:55 3.0 06/03/19 00:53 50 06/03/19 00:33 50 06/03/19 00:00 71 06/03/19 00:00 Bi-pap 06/03/19 00:00 97.7 74 20 126/70 (88) 100 06/02/19 21:16 125/80 06/02/19 20:14 76 125/80 06/02/19 20:00 Nasal Cannula 3.0 06/02/19 20:00 97.4 76 18 125/80 (95) 99 06/02/19 19:23 76 06/02/19 18:40 100 Nasal Cannula 3.0 32 06/02/19 18:40 80 18 100 Nasal Cannula 3.0 32 06/02/19 16:00 69 06/02/19 16:00 98.1 71 19 113/63 (80) 96 06/02/19 16:00 Nasal Cannula 3.0 06/02/19 14:17 120/56 06/02/19 12:00 98.1 71 20 120/56 (77) 96 06/02/19 12:00 70 06/02/19 12:00 Nasal Cannula 3.0 Intake and Output 06/02/19 06/03/19 19:00 07:00 Intake Total 630.002 ml 170 ml Output Total 400 ml 300 ml Balance 230.002 ml -130 ml Intake Oral 240 ml 60 ml IV Total 390.002 ml 110 ml Output Urine Total 400 ml 300 ml # Bowel Movements 3 3 Laboratory Tests 06/03/19 04:33: White Blood Count 8.3, Red Blood Count 3.56L, Hemoglobin 11.0L, Hematocrit 34.4L , Mean Corpuscular Volume 97, Mean Corpuscular Hemoglobin 30.8, Mean Corpuscular Hemoglobin Concent 31.8L, Red Cell Distribution Width 17.8H, Platelet Count 149L, Mean Platelet Volume 7.1, Neutrophils (%) (Auto) 64.5, Lymphocytes (%) (Auto) 18.9L, Monocytes (%) (Auto) 9.3, Eosinophils (%) (Auto) 5.2H, Basophils (%) (Auto) 2.0, Sodium Level 140, Potassium Level 3.7, Chloride Level 105, Carbon Dioxide Level 21, Anion Gap 14, Blood Urea Nitrogen 17, Creatinine 2.6H, Estimat Glomerular Filtration Rate , Glucose Level 83, Uric Acid 5.7, Calcium Level 6.8L, Phosphorus Level 3.0, Magnesium Level 1.9, Total Bilirubin 0.4, Aspartate Amino Transf (AST/SGOT) 26, Alanine Aminotransferase ( ALT/SGPT) 12, Alkaline Phosphatase 94, C-Reactive Protein, Quantitative 2.1H, Pro-B-Type Natriuretic Peptide > 00054G, Total Protein 6.6, Albumin 2.5L, Globulin 4.1, Albumin/Globulin Ratio 0.6L Height (Feet): 4 Height (Inches): 10.00 Weight (Pounds): 129 General Appearance: no apparent distress Cardiovascular: normal rate Respiratory/Chest: decreased breath sounds Abdomen: soft Josep Rosales MD Jun 03, 2019 11:37
[2019-06-03] MEDS: Calcium Acetate 667mg Tab ORAL SCH ×2 (11:48→17:11)
[2019-06-03 12:00] VITALS: BP_SYST 117; BP_DIAS 12; BP_DIAS 42
[2019-06-03] MEDS ORDERED: Vitamin D 50,000 units cap ORAL SCH (12:00)
--- NOTE | 2019-06-03 12:40 | Surgery Progress Note ---
Surgery Progress Note Subjective Additional Comments Afebrile healing stable labs improved imaging noted. Micro noted. Family at bedside. States some knee discomfort bilaterally. Objective Last 24 Hour Vital Signs Date Time Temp Pulse Resp B/P (MAP) Pulse Ox O2 Delivery O2 Flow Rate FiO2 06/03/19 09:00 85 142/75 06/03/19 08:00 98.0 84 24 142/75 (97) 100 06/03/19 08:00 Nasal Cannula 3.0 06/03/19 08:00 85 06/03/19 06:05 132/74 06/03/19 04:00 Nasal Cannula 3.0 06/03/19 04:00 97.3 77 18 132/74 (93) 100 06/03/19 03:45 76 06/03/19 02:55 3.0 06/03/19 00:53 50 06/03/19 00:33 50 06/03/19 00:00 71 06/03/19 00:00 Bi-pap 06/03/19 00:00 97.7 74 20 126/70 (88) 100 06/02/19 21:16 125/80 06/02/19 20:14 76 125/80 06/02/19 20:00 Nasal Cannula 3.0 06/02/19 20:00 97.4 76 18 125/80 (95) 99 06/02/19 19:23 76 06/02/19 18:40 100 Nasal Cannula 3.0 32 06/02/19 18:40 80 18 100 Nasal Cannula 3.0 32 06/02/19 16:00 69 06/02/19 16:00 98.1 71 19 113/63 (80) 96 06/02/19 16:00 Nasal Cannula 3.0 06/02/19 14:17 120/56 I&O Intake and Output 06/02/19 06/03/19 19:00 07:00 Intake Total 630.002 ml 170 ml Output Total 400 ml 300 ml Balance 230.002 ml -130 ml Intake Oral 240 ml 60 ml IV Total 390.002 ml 110 ml Output Urine Total 400 ml 300 ml # Bowel Movements 3 3 Dressing: saturated Wound: clean Cardiovascular: RSR Respiratory: clear Abdomen: soft, non-tender, present bowel sounds Extremities: tenderness, no cyanosis Laboratory Tests Test 06/03/19 04:33 White Blood Count 8.3 K/UL (4.8-10.8) Red Blood Count 3.56 M/UL (4.20-5.40) L Hemoglobin 11.0 G/DL (12.0-16.0) L Hematocrit 34.4 % (37.0-47.0) L Mean Corpuscular Volume 97 FL (80-99) Mean Corpuscular Hemoglobin 30.8 PG (27.0-31.0) Mean Corpuscular Hemoglobin Concent 31.8 G/DL (32.0-36.0) L Red Cell Distribution Width 17.8 % (11.6-14.8) H Platelet Count 149 K/UL (150-450) L Mean Platelet Volume 7.1 FL (6.5-10.1) Neutrophils (%) (Auto) 64.5 % (45.0-75.0) Lymphocytes (%) (Auto) 18.9 % (20.0-45.0) L Monocytes (%) (Auto) 9.3 % (1.0-10.0) Eosinophils (%) (Auto) 5.2 % (0.0-3.0) H Basophils (%) (Auto) 2.0 % (0.0-2.0) Sodium Level 140 MMOL/L (136-145) Potassium Level 3.7 MMOL/L (3.5-5.1) Chloride Level 105 MMOL/L (98-107) Carbon Dioxide Level 21 MMOL/L (21-32) Anion Gap 14 mmol/L (5-15) Blood Urea Nitrogen 17 mg/dL (7-18) Creatinine 2.6 MG/DL (0.55-1.30) H Estimat Glomerular Filtration Rate mL/min (>60) Glucose Level 83 MG/DL (74-106) Uric Acid 5.7 MG/DL (2.6-7.2) Calcium Level 6.8 MG/DL (8.5-10.1) L Phosphorus Level 3.0 MG/DL (2.5-4.9) Magnesium Level 1.9 MG/DL (1.8-2.4) Total Bilirubin 0.4 MG/DL (0.2-1.0) Aspartate Amino Transf (AST/SGOT) 26 U/L (15-37) Alanine Aminotransferase (ALT/SGPT) 12 U/L (12-78) Alkaline Phosphatase 94 U/L (46-116) C-Reactive Protein, Quantitative 2.1 mg/dL (0.00-0.90) H Pro-B-Type Natriuretic Peptide > 25866 pg/mL (0-125) H Total Protein 6.6 G/DL (6.4-8.2) Albumin 2.5 G/DL (3.4-5.0) L Globulin 4.1 g/dL Albumin/Globulin Ratio 0.6 (1.0-2.7) L Plan Problems: (1) Sacral decubitus ulcer Assessment & Plan: Pt presented on admission with non-blanching erythema without induration to sacrum. Site non-tender when palpated. R heel is boggy with non-blanching erythema. Pt complained of tenderness when palpated.(L)2cm x (W)3.5cm. L heel boggy with non-blanchable erythema with an area within base of wound of wound that is purple. Site is also tender when minimally palpated. (L)3cm x (W) 4cm. Purple/red discoloration noted to distal /lateral L foot and L 5th metatarsal. Pt complained of pain to slightest touch. Tx.Plan: Apply Cavilon Skin Barrier to both heels. Cover each heel with Optifoam drsg. Change every 7 days and prn. Apply Cavilon Skin Barrier to distal/lateral L foot/L 5th metatarsal. Cover with Optifoam drsg. Change every 7 days and prn. Apply Moisture Barrier Paste to Sacrum. Cover with Optifoam drsg. Change every 3 days and prn. Reposition at least every 2hours or as tolerated. Off-load heels with pillow. 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
[2019-06-03] MEDS ORDERED: NS 275ml ONE (13:29)
[2019-06-03] MEDS ORDERED: Tubing IV Secondary IV ONE (13:29)
[2019-06-03] MEDS ORDERED: Calcium Gluconate 10% 1 GM in NS 110 ML IVPB SCH (14:00)
[2019-06-03] MEDS: HydrALAZINE 25mg tab ORAL SCH ×2 (14:52→22:08)
[2019-06-03 16:00] VITALS: BP 139/83
--- NOTE | 2019-06-03 19:34 | NUR ---
HAND-OFF: Report given to Sheron Patten RN.
--- NOTE | 2019-06-03 19:39 | NUR ---
NURSE NOTES: Received patient from Seamus GLASS. Patient is awake, alert and oriented x4, family is in the room. Receiving oxygen via nasal cannula at 3L/min. Patient tolerating well, no signs of respiratory distress. [place] catheter is patent and intact. IV site is Left hand 22g, intact and asymptomatic. Bed is locked, placed in lowest position, side rails up x3, bed alarm on, call light within reach. Will continue to monitor.
[2019-06-03 20:00] VITALS: BP 143/81
[2019-06-03] MEDS: Dyna-Hex 2% Top Sol 2oz TOPIC SCH (20:46)
[2019-06-03] MEDS: Vitamin A&D Oint Tube TOPIC SCH (20:48)
[2019-06-03] MEDS: Betadine 4oz Bottle TOPIC SCH (21:01)
[2019-06-04] VITALS: BP 114/66
--- NOTE | 2019-06-04 00:42 | NUR ---
NURSE NOTES: Turned and repositioned patient. Patient showing no signs of distress. Will continue to monitor.
[2019-06-04 04:00] VITALS: BP 136/73
[2019-06-04 04:31] LABS: BASOPHILS % (AUTO) 1.9 % (0.0-2.0); EOSINOPHILS % (AUTO) 5.5 % (0.0-3.0); HEMATOCRIT 33.8 % (37.0-47.0); HEMOGLOBIN 10.6 G/DL (12.0-16.0); LYMPHOCYTES % (AUTO) 19.9 % (20.0-45.0); MEAN CORPUSCULAR VOLUME 96 FL (80-99); MONOCYTES % (AUTO) 7.5 % (1.0-10.0); NEUTROPHILS % (AUTO) 65.1 % (45.0-75.0); PLATELET COUNT 140 K/UL (150-450); RED BLOOD COUNT 3.51 M/UL (4.20-5.40); RED CELL DISTRIBUTION WIDTH 17.4 % (11.6-14.8); WHITE BLOOD COUNT 8.3 K/UL (4.8-10.8)
[2019-06-04 05:05] LABS: ALANINE AMINOTRANSFERASE 10 U/L (12-78); ALBUMIN 2.6 G/DL (3.4-5.0); ALBUMIN/GLOBULIN RATIO 0.6 (1.0-2.7); ALKALINE PHOSPHATASE 100 U/L (46-116); ANION GAP 12 mmol/L (5-15); ASPARTATE AMINO TRANSFERASE 23 U/L (15-37); BILIRUBIN,TOTAL 0.5 MG/DL (0.2-1.0); BLOOD UREA NITROGEN 18 mg/dL (7-18); CALCIUM 7.2 MG/DL (8.5-10.1); CARBON DIOXIDE 20 MMOL/L (21-32); CHLORIDE 104 MMOL/L (98-107); CREATININE 2.7 MG/DL (0.55-1.30); PHOSPHORUS 2.8 MG/DL (2.5-4.9); POTASSIUM 3.9 MMOL/L (3.5-5.1); SODIUM 136 MMOL/L (136-145)
[2019-06-04] MEDS: HydrALAZINE 25mg tab ORAL SCH (05:36)
[2019-06-04] MEDS: Piperacillin/Tazobactam 2.25 GM in NS 55 ML IV SCH (05:36)
[2019-06-04] MEDS: Calcium Acetate 667mg Tab ORAL SCH ×2 (05:48→10:46)
[2019-06-04] MEDS: NovoLOG Insulin Flexpen SUBQ SCH ×2 (06:30→11:30)
--- NOTE | 2019-06-04 07:23 | NUR ---
HAND-OFF: Report given to Asha GLASS. Patient in stable condition
--- NOTE | 2019-06-04 07:27 | NUR ---
NURSE NOTES: Received bedside report from Lexa RN. Pt. in bed, awake, a/o x 4. No sign of distress. On O2 at 3LPM via NC. Denies pain at present. IV site at left hand #22g. in placed patent/intact S.L. Perma-cath at left chest in placed. Family at bedside for support. Bed in low position, locked. Call light within reach. Will cont. to monitor.
[2019-06-04 08:00] VITALS: BP 137/79
[2019-06-04] MEDS: Amiodarone 200mg tab ORAL SCH (08:23)
[2019-06-04] MEDS: Docusate 100mg cap ORAL SCH (08:23)
[2019-06-04] MEDS: Carvedilol 25mg Tab ORAL SCH (08:23)
--- NOTE | 2019-06-04 09:46 | Pulmonology Progress Note ---
Assessment/Plan Assessment/Plan IMPRESSION: Possible pneumonia Fluid overload Cardiomyopathy, AICD CAD Leukocytosis, possible sepsis, Lactic acidemia Bacteremia? contaminant RECOMMENDATIONS: Supportive care, empiric antibiotics and follow clinically, respiratory care and monitor for further changes. Hemodialysis with ultrafiltration. Monitor vital signs and hemodynamics. BiPAP p.r.n . I have been asked to assume care per her primary insurance; [facility] Dialysis per renal Diet being advanced DC home Subjective Interval Events: Feeling well; on low flow O2 Constitutional: Reports: no symptoms HEENT: Repors: no symptoms Respiratory: Reports: no symptoms Cardiovascular: Reports: no symptoms Gastrointestinal/Abdominal: Reports: no symptoms Allergies: Coded Allergies: No Known Allergies (Unverified , 05/29/19) Objective Last 24 Hour Vital Signs Date Time Temp Pulse Resp B/P (MAP) Pulse Ox O2 Delivery O2 Flow Rate FiO2 06/04/19 08:23 85 137/79 06/04/19 08:00 Nasal Cannula 3.0 06/04/19 08:00 98.2 85 18 137/79 (98) 100 06/04/19 07:56 88 06/04/19 05:36 136/73 06/04/19 04:00 Nasal Cannula 3.0 06/04/19 04:00 98.0 83 23 136/73 (94) 99 06/04/19 03:27 77 06/04/19 00:00 98.6 81 20 114/66 (82) 98 06/04/19 00:00 Nasal Cannula 3.0 06/03/19 23:26 77 06/03/19 22:08 120/73 06/03/19 20:50 97 143/81 06/03/19 20:18 99 Nasal Cannula 3.0 32 06/03/19 20:18 80 19 99 Nasal Cannula 3.0 32 06/03/19 20:00 98.8 98 22 143/81 (101) 98 06/03/19 20:00 Nasal Cannula 3.0 06/03/19 19:34 98 06/03/19 16:00 98.0 96 24 139/83 (101) 100 06/03/19 16:00 Nasal Cannula 3.0 06/03/19 16:00 85 06/03/19 14:52 117/12 06/03/19 12:00 89 06/03/19 12:00 97.9 91 23 117/42 (67) 100 06/03/19 12:00 Nasal Cannula 3.0 Intake and Output 06/03/19 06/04/19 19:00 07:00 Intake Total 600 ml 175 ml Output Total 550 ml 400 ml Balance 50 ml -225 ml Intake Oral 250 ml 120 ml IV Total 350 ml 55 ml Output Urine Total 550 ml 400 ml # Bowel Movements 6 3 General Appearance: no acute distress HEENT: normocephalic Respiratory/Chest: chest wall non-tender, lungs clear Cardiovascular: normal peripheral pulses, normal rate Abdomen: normal bowel sounds Laboratory Tests 06/04/19 03:45: White Blood Count 8.3, Red Blood Count 3.51L, Hemoglobin 10.6L, Hematocrit 33.8L , Mean Corpuscular Volume 96, Mean Corpuscular Hemoglobin 30.3, Mean Corpuscular Hemoglobin Concent 31.5L, Red Cell Distribution Width 17.4H, Platelet Count 140L, Mean Platelet Volume 6.6, Neutrophils (%) (Auto) 65.1, Lymphocytes (%) (Auto) 19.9L, Monocytes (%) (Auto) 7.5, Eosinophils (%) (Auto) 5.5H, Basophils (%) (Auto) 1.9, Sodium Level 136, Potassium Level 3.9, Chloride Level 104, Carbon Dioxide Level 20L, Anion Gap 12, Blood Urea Nitrogen 18, Creatinine 2.7H, Estimat Glomerular Filtration Rate , Glucose Level 106, Calcium Level 7.2L, Phosphorus Level 2.8, Magnesium Level 1.7L, Total Bilirubin 0.5, Aspartate Amino Transf (AST/SGOT) 23, Alanine Aminotransferase (ALT/SGPT) 10L, Alkaline Phosphatase 100, C-Reactive Protein, Quantitative 4.0H, Pro-B- Type Natriuretic Peptide 59864E, Total Protein 6.7, Albumin 2.6L, Globulin 4.1, Albumin/Globulin Ratio 0.6L Current Medications Medications (Trade) Dose Ordered Sig/Christophe Route PRN Reason Start Time Stop Time Status Last Admin Dose Admin Acetaminophen (Tylenol) 650 mg Q4H PRN ORAL Mild Pain/Temp > 100.5 05/29/19 09:15 06/28/19 09:14 05/29/19 12:52 Amiodarone HCl (Cordarone) 400 mg DAILY ORAL 06/02/19 09:00 06/28/19 09:14 06/04/19 08:23 Aspirin (ASA) 325 mg DAILY ORAL 05/29/19 09:15 06/28/19 09:14 06/04/19 08:23 Bisacodyl (Dulcolax) 10 mg DAILY PRN RECTAL Constipation, LAST LINE 05/29/19 09:15 06/28/19 09:14 Calcium Acetate (Phoslo) 667 mg TIAC ORAL 06/03/19 11:30 07/03/19 11:29 06/04/19 05:48 Calcium Gluconate 1 gm/Sodium Chloride 120 ml @ 240 mls/hr ONCE ONCE IVPB 06/04/19 10:30 06/04/19 10:59 Carvedilol (Coreg) 25 mg EVERY 12 HOURS ORAL 05/31/19 21:00 06/29/19 20:59 06/04/19 08:23 Chlorhexidine Gluconate (Ave-Hex 2%) 1 applic DAILY@2000 TOPIC 06/01/19 20:00 07/01/19 19:59 06/03/19 20:46 Clopidogrel Bisulfate (Plavix) 75 mg DAILY ORAL 05/29/19 09:15 06/28/19 09:14 06/04/19 08:23 Dextrose (Dextrose 50%) 25 ml Q30M PRN IV Hypoglycemia 05/29/19 10:00 06/28/19 09:59 Dextrose (Dextrose 50%) 50 ml Q30M PRN IV Hypoglycemia 05/29/19 10:00 06/28/19 09:59 Docusate Sodium (Colace) 100 mg THREE TIMES A DAY ORAL 05/29/19 18:00 06/28/19 17:59 06/04/19 08:23 Ergocalciferol (Drisdol) 50,000 intlu QWEEK ORAL 06/03/19 12:00 07/03/19 11:59 06/03/19 13:00 Hydralazine HCl (Apresoline) 75 mg Q8HR ORAL 06/03/19 14:00 06/28/19 13:44 06/04/19 05:36 Insulin Aspart (NovoLOG) BEFORE MEALS AND HS SUBQ 05/29/19 11:30 06/28/19 11:29 06/01/19 12:23 Magnesium Sulfate 100 ml @ 100 mls/hr Q1H IVPB 06/04/19 10:00 06/04/19 11:59 Mineral Oil (Fleet's Mineral Oil Enema) 133 ml 3XW PRN RECTAL Constipation 05/29/19 09:15 06/28/19 09:14 Nitroglycerin (Ntg) 0.4 mg Q5MIN X 3 DOSES PRN SL CHEST PAIN 05/29/19 09:15 06/28/19 09:14 Ondansetron HCl (Zofran ODT) 4 mg Q8H PRN ORAL Nausea & Vomiting 05/29/19 09:15 06/28/19 09:14 Pantoprazole (Protonix) 40 mg BID ORAL 05/29/19 18:00 06/28/19 09:59 06/04/19 08:23 Piperacillin Sod/ Tazobactam Sod 2.25 gm/Sodium Chloride 55 ml @ 110 mls/hr Q8H IV 05/30/19 13:00 06/06/19 12:59 06/04/19 05:36 Povidone Iodine (Betadine Shoshana) 1 applic BEDTIME TOPIC 06/01/19 21:00 06/28/19 09:14 06/03/19 21:01 Vitamin A/Vitamin D (A & D Oint) 1 applic BEDTIME TOPIC 06/01/19 21:00 06/28/19 10:29 06/03/19 20:48 Zolpidem Tartrate (Ambien) 5 mg BEDTIME PRN ORAL Insomnia 05/29/19 09:15 06/05/19 09:14 Hermann Martinez MD Jun 04, 2019 09:46
[2019-06-04] MEDS ORDERED: COREG25 MG ORAL (09:50)
[2019-06-04] MEDS ORDERED: LISINOPRIL5 MG ORAL (09:50)
[2019-06-04] MEDS ORDERED: PLAVIX75 MG ORAL (09:50)
[2019-06-04] MEDS ORDERED: RENA-VITE RX T1 EAC1 PO (09:50)
[2019-06-04] MEDS ORDERED: HYDRALAZINE HCL25 M1 ORAL (09:50)
[2019-06-04] MEDS ORDERED: ASPIRIN325 MG ORAL (09:50)
[2019-06-04] MEDS ORDERED: AMIODARONE HCL100 MG ORAL (09:50)
[2019-06-04] MEDS ORDERED: NOVOLOG100 UNITS1 SUBQ (09:50)
--- NOTE | 2019-06-04 10:14 | Infectious Diseases Prog Note ---
Assessment/Plan Assessment/Plan IMPRESSION: 1. Sepsis or systemic inflammatory response syndrome. 2. Congestion, ? pneumonia 3. Hypoxemic respiratory failure. 4. Hyperkalemia. 5. Lactic acidosis. 6. End-stage renal disease on hemodialysis. 7. Diabetes mellitus type 2. 8. Congestive heart failure. 9. Hypertension. 10. Hyperlipidemia. 11. Positive blood culture with CoANS likely contamination RECOMMENDATION: We will continue with Zosyn X 1 day vancomycin was discontinued Subjective ROS Limited/Unobtainable: Yes Constitutional: Reports: no symptoms Respiratory: Reports: no symptoms Cardiovascular: Reports: no symptoms Gastrointestinal/Abdominal: Reports: no symptoms Allergies: Coded Allergies: No Known Allergies (Unverified , 05/29/19) Objective Vital Signs Last 24 Hour Vital Signs Date Time Temp Pulse Resp B/P (MAP) Pulse Ox O2 Delivery O2 Flow Rate FiO2 06/04/19 08:23 85 137/79 06/04/19 08:00 Nasal Cannula 3.0 06/04/19 08:00 98.2 85 18 137/79 (98) 100 06/04/19 07:56 88 06/04/19 05:36 136/73 06/04/19 04:00 Nasal Cannula 3.0 06/04/19 04:00 98.0 83 23 136/73 (94) 99 06/04/19 03:27 77 06/04/19 00:00 98.6 81 20 114/66 (82) 98 06/04/19 00:00 Nasal Cannula 3.0 06/03/19 23:26 77 06/03/19 22:08 120/73 06/03/19 20:50 97 143/81 06/03/19 20:18 99 Nasal Cannula 3.0 32 06/03/19 20:18 80 19 99 Nasal Cannula 3.0 32 06/03/19 20:00 98.8 98 22 143/81 (101) 98 06/03/19 20:00 Nasal Cannula 3.0 06/03/19 19:34 98 06/03/19 16:00 98.0 96 24 139/83 (101) 100 06/03/19 16:00 Nasal Cannula 3.0 06/03/19 16:00 85 06/03/19 14:52 117/12 06/03/19 12:00 89 06/03/19 12:00 97.9 91 23 117/42 (67) 100 06/03/19 12:00 Nasal Cannula 3.0 Height (Feet): 4 Height (Inches): 10.00 Weight (Pounds): 129 General Appearance: no acute distress HEENT: mucous membranes moist Respiratory/Chest: lungs clear Cardiovascular: normal rate Abdomen: soft, non tender Extremities: no edema Neurologic/Psychiatric: alert, responsive Laboratory Tests Test 06/04/19 03:45 White Blood Count 8.3 K/UL (4.8-10.8) Red Blood Count 3.51 M/UL (4.20-5.40) L Hemoglobin 10.6 G/DL (12.0-16.0) L Hematocrit 33.8 % (37.0-47.0) L Mean Corpuscular Volume 96 FL (80-99) Mean Corpuscular Hemoglobin 30.3 PG (27.0-31.0) Mean Corpuscular Hemoglobin Concent 31.5 G/DL (32.0-36.0) L Red Cell Distribution Width 17.4 % (11.6-14.8) H Platelet Count 140 K/UL (150-450) L Mean Platelet Volume 6.6 FL (6.5-10.1) Neutrophils (%) (Auto) 65.1 % (45.0-75.0) Lymphocytes (%) (Auto) 19.9 % (20.0-45.0) L Monocytes (%) (Auto) 7.5 % (1.0-10.0) Eosinophils (%) (Auto) 5.5 % (0.0-3.0) H Basophils (%) (Auto) 1.9 % (0.0-2.0) Sodium Level 136 MMOL/L (136-145) Potassium Level 3.9 MMOL/L (3.5-5.1) Chloride Level 104 MMOL/L (98-107) Carbon Dioxide Level 20 MMOL/L (21-32) L Anion Gap 12 mmol/L (5-15) Blood Urea Nitrogen 18 mg/dL (7-18) Creatinine 2.7 MG/DL (0.55-1.30) H Estimat Glomerular Filtration Rate mL/min (>60) Glucose Level 106 MG/DL (74-106) Calcium Level 7.2 MG/DL (8.5-10.1) L Phosphorus Level 2.8 MG/DL (2.5-4.9) Magnesium Level 1.7 MG/DL (1.8-2.4) L Total Bilirubin 0.5 MG/DL (0.2-1.0) Aspartate Amino Transf (AST/SGOT) 23 U/L (15-37) Alanine Aminotransferase (ALT/SGPT) 10 U/L (12-78) L Alkaline Phosphatase 100 U/L (46-116) C-Reactive Protein, Quantitative 4.0 mg/dL (0.00-0.90) H Pro-B-Type Natriuretic Peptide 75986 pg/mL (0-125) H Total Protein 6.7 G/DL (6.4-8.2) Albumin 2.6 G/DL (3.4-5.0) L Globulin 4.1 g/dL Albumin/Globulin Ratio 0.6 (1.0-2.7) L Current Medications Medications (Trade) Dose Ordered Sig/Christophe Route PRN Reason Start Time Stop Time Status Last Admin Dose Admin Acetaminophen (Tylenol) 650 mg Q4H PRN ORAL Mild Pain/Temp > 100.5 05/29/19 09:15 06/28/19 09:14 05/29/19 12:52 Amiodarone HCl (Cordarone) 400 mg DAILY ORAL 06/02/19 09:00 06/28/19 09:14 06/04/19 08:23 Aspirin (ASA) 325 mg DAILY ORAL 05/29/19 09:15 06/28/19 09:14 06/04/19 08:23 Bisacodyl (Dulcolax) 10 mg DAILY PRN RECTAL Constipation, LAST LINE 05/29/19 09:15 06/28/19 09:14 Calcium Acetate (Phoslo) 667 mg TIAC ORAL 06/03/19 11:30 07/03/19 11:29 06/04/19 05:48 Calcium Gluconate 1 gm/Sodium Chloride 120 ml @ 240 mls/hr ONCE ONCE IVPB 06/04/19 10:30 06/04/19 10:59 Carvedilol (Coreg) 25 mg EVERY 12 HOURS ORAL 05/31/19 21:00 06/29/19 20:59 06/04/19 08:23 Chlorhexidine Gluconate (Ave-Hex 2%) 1 applic DAILY@2000 TOPIC 06/01/19 20:00 07/01/19 19:59 06/03/19 20:46 Clopidogrel Bisulfate (Plavix) 75 mg DAILY ORAL 05/29/19 09:15 06/28/19 09:14 06/04/19 08:23 Dextrose (Dextrose 50%) 25 ml Q30M PRN IV Hypoglycemia 05/29/19 10:00 06/28/19 09:59 Dextrose (Dextrose 50%) 50 ml Q30M PRN IV Hypoglycemia 05/29/19 10:00 06/28/19 09:59 Docusate Sodium (Colace) 100 mg THREE TIMES A DAY ORAL 05/29/19 18:00 06/28/19 17:59 06/04/19 08:23 Ergocalciferol (Drisdol) 50,000 intlu QWEEK ORAL 06/03/19 12:00 07/03/19 11:59 06/03/19 13:00 Hydralazine HCl (Apresoline) 75 mg Q8HR ORAL 06/03/19 14:00 06/28/19 13:44 06/04/19 05:36 Insulin Aspart (NovoLOG) BEFORE MEALS AND HS SUBQ 05/29/19 11:30 06/28/19 11:29 06/01/19 12:23 Magnesium Sulfate 100 ml @ 100 mls/hr Q1H IVPB 06/04/19 10:00 06/04/19 11:59 Mineral Oil (Fleet's Mineral Oil Enema) 133 ml 3XW PRN RECTAL Constipation 05/29/19 09:15 06/28/19 09:14 Nitroglycerin (Ntg) 0.4 mg Q5MIN X 3 DOSES PRN SL CHEST PAIN 05/29/19 09:15 06/28/19 09:14 Ondansetron HCl (Zofran ODT) 4 mg Q8H PRN ORAL Nausea & Vomiting 05/29/19 09:15 06/28/19 09:14 Pantoprazole (Protonix) 40 mg BID ORAL 05/29/19 18:00 06/28/19 09:59 06/04/19 08:23 Piperacillin Sod/ Tazobactam Sod 2.25 gm/Sodium Chloride 55 ml @ 110 mls/hr Q8H IV 05/30/19 13:00 06/06/19 12:59 06/04/19 05:36 Povidone Iodine (Betadine Shoshana) 1 applic BEDTIME TOPIC 06/01/19 21:00 06/28/19 09:14 06/03/19 21:01 Vitamin A/Vitamin D (A & D Oint) 1 applic BEDTIME TOPIC 06/01/19 21:00 06/28/19 10:29 06/03/19 20:48 Zolpidem Tartrate (Ambien) 5 mg BEDTIME PRN ORAL Insomnia 05/29/19 09:15 06/05/19 09:14 William Dailey MD Jun 04, 2019 10:14
[2019-06-04] MEDS ORDERED: Calcium Gluconate 10% 1 GM in NS 110 ML IVPB ONE (10:30)
--- NOTE | 2019-06-04 10:43 | Nephrology Progress Note ---
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 Subjective ROS Limited/Unobtainable: No Constitutional: Reports: malaise Objective Objective Last 24 Hour Vital Signs Date Time Temp Pulse Resp B/P (MAP) Pulse Ox O2 Delivery O2 Flow Rate FiO2 06/04/19 08:23 85 137/79 06/04/19 08:00 Nasal Cannula 3.0 06/04/19 08:00 98.2 85 18 137/79 (98) 100 06/04/19 07:56 88 06/04/19 05:36 136/73 06/04/19 04:00 Nasal Cannula 3.0 06/04/19 04:00 98.0 83 23 136/73 (94) 99 06/04/19 03:27 77 06/04/19 00:00 98.6 81 20 114/66 (82) 98 06/04/19 00:00 Nasal Cannula 3.0 06/03/19 23:26 77 06/03/19 22:08 120/73 06/03/19 20:50 97 143/81 06/03/19 20:18 99 Nasal Cannula 3.0 32 06/03/19 20:18 80 19 99 Nasal Cannula 3.0 32 06/03/19 20:00 98.8 98 22 143/81 (101) 98 06/03/19 20:00 Nasal Cannula 3.0 06/03/19 19:34 98 06/03/19 16:00 98.0 96 24 139/83 (101) 100 06/03/19 16:00 Nasal Cannula 3.0 06/03/19 16:00 85 06/03/19 14:52 117/12 06/03/19 12:00 89 06/03/19 12:00 97.9 91 23 117/42 (67) 100 06/03/19 12:00 Nasal Cannula 3.0 Intake and Output 06/03/19 06/04/19 19:00 07:00 Intake Total 600 ml 175 ml Output Total 550 ml 400 ml Balance 50 ml -225 ml Intake Oral 250 ml 120 ml IV Total 350 ml 55 ml Output Urine Total 550 ml 400 ml # Bowel Movements 6 3 Laboratory Tests 06/04/19 03:45: White Blood Count 8.3, Red Blood Count 3.51L, Hemoglobin 10.6L, Hematocrit 33.8L , Mean Corpuscular Volume 96, Mean Corpuscular Hemoglobin 30.3, Mean Corpuscular Hemoglobin Concent 31.5L, Red Cell Distribution Width 17.4H, Platelet Count 140L, Mean Platelet Volume 6.6, Neutrophils (%) (Auto) 65.1, Lymphocytes (%) (Auto) 19.9L, Monocytes (%) (Auto) 7.5, Eosinophils (%) (Auto) 5.5H, Basophils (%) (Auto) 1.9, Sodium Level 136, Potassium Level 3.9, Chloride Level 104, Carbon Dioxide Level 20L, Anion Gap 12, Blood Urea Nitrogen 18, Creatinine 2.7H, Estimat Glomerular Filtration Rate , Glucose Level 106, Calcium Level 7.2L, Phosphorus Level 2.8, Magnesium Level 1.7L, Total Bilirubin 0.5, Aspartate Amino Transf (AST/SGOT) 23, Alanine Aminotransferase (ALT/SGPT) 10L, Alkaline Phosphatase 100, C-Reactive Protein, Quantitative 4.0H, Pro-B- Type Natriuretic Peptide 54817W, Total Protein 6.7, Albumin 2.6L, Globulin 4.1, Albumin/Globulin Ratio 0.6L Height (Feet): 4 Height (Inches): 10.00 Weight (Pounds): 129 General Appearance: no apparent distress Cardiovascular: normal rate Respiratory/Chest: decreased breath sounds Abdomen: soft Josep Rosales MD Jun 04, 2019 10:43
[2019-06-04 12:00] VITALS: BP 119/68
--- NOTE | 2019-06-04 13:10 | NUR ---
NURSE NOTES: Pt. moved to tele before discharge at 1400. Gave report to Merna GLASS. Pt. remain stable. Merna RN made aware pt. will be d/c to SNF with ortiz cath.
[2019-06-04] MEDS ORDERED: Nitroglycerin Subl 0.4mg tab SL PRN ×2 (13:23→13:30)
[2019-06-04] MEDS ORDERED: Fleet's Mineral Oil Enema RECTAL PRN ×2 (13:25→13:35)
--- NOTE | 2019-06-04 13:38 | NUR ---
RECRUITING ADMINISTRATOR NOTES PT ACCEPTED BACK TO [facility] ROOM 31 BED B. [facility] TO TRANSPORT PT WITH AN ETA 1500. SPOKE WITH STEVE FROM [facility] MADE AWARE OF DC TODAY WITH AUTH GIVEN TO SNF FOR READMISSION. PLACED A CALL TO [facility] ON [address] VERIFIED HD DAYS AND CHAIR TIME. PT HAS HD ON Tuesday AND FRIDAYS @ 0715. JOHNNA FROM [facility] TO SET UP TRANSPORTATION TO AND FROM HD. TRANSPORTATION AUTH- [id number] [facility] [phone] [facility] [phone]
--- NOTE | 2019-06-04 13:42 | NUR ---
*-* INSURANCE *-* UPDATED AVAILABLE CLINICALS HAVE BEEN FAXED TO [place] Tracking#[id number] KAVEH; Steve #[phone] Addendum: 06/05/19 at 1452 by VERONIKA MCMILLAN CM SPOKE WITH NCM:STEVE SHE STATED SHE HAS BEEN RECEIVING CLINICALS UNABLE TO SEND DISCHARGE SUMMARY NOT IN SYSTEM YET.
[2019-06-04] MEDS ORDERED: HydrALAZINE 25mg tab ORAL SCH ×2 (14:00)
[2019-06-04] MEDS ORDERED: Piperacillin/Tazobactam 2.25 GM in NS 55 ML IV SCH ×4 (14:00)
[2019-06-04 14:58] VITALS: BP 125/70
--- NOTE | 2019-06-04 15:00 | Surgery Progress Note ---
Surgery Progress Note Subjective Additional Comments No acute events. Overall improving. Zosyn for 1 more day. Discharge planning. Labs noted. Exam stable. Dressings being changed. Objective Last 24 Hour Vital Signs Date Time Temp Pulse Resp B/P (MAP) Pulse Ox O2 Delivery O2 Flow Rate FiO2 06/04/19 12:00 Nasal Cannula 3.0 06/04/19 12:00 98.1 77 18 119/68 (85) 97 06/04/19 11:33 77 06/04/19 08:23 85 137/79 06/04/19 08:00 Nasal Cannula 3.0 06/04/19 08:00 98.2 85 18 137/79 (98) 100 06/04/19 07:56 88 06/04/19 05:36 136/73 06/04/19 04:00 Nasal Cannula 3.0 06/04/19 04:00 98.0 83 23 136/73 (94) 99 06/04/19 03:27 77 06/04/19 00:00 98.6 81 20 114/66 (82) 98 06/04/19 00:00 Nasal Cannula 3.0 06/03/19 23:26 77 06/03/19 22:08 120/73 06/03/19 20:50 97 143/81 06/03/19 20:18 99 Nasal Cannula 3.0 32 06/03/19 20:18 80 19 99 Nasal Cannula 3.0 32 06/03/19 20:00 98.8 98 22 143/81 (101) 98 06/03/19 20:00 Nasal Cannula 3.0 06/03/19 19:34 98 06/03/19 16:00 98.0 96 24 139/83 (101) 100 06/03/19 16:00 Nasal Cannula 3.0 06/03/19 16:00 85 I&O Intake and Output 06/03/19 06/04/19 19:00 07:00 Intake Total 600 ml 175 ml Output Total 550 ml 400 ml Balance 50 ml -225 ml Intake Oral 250 ml 120 ml IV Total 350 ml 55 ml Output Urine Total 550 ml 400 ml # Bowel Movements 6 3 Dressing: dry Wound: clean Cardiovascular: RSR Respiratory: clear Abdomen: soft, non-tender, present bowel sounds Extremities: no cyanosis, other Laboratory Tests Test 06/04/19 03:45 White Blood Count 8.3 K/UL (4.8-10.8) Red Blood Count 3.51 M/UL (4.20-5.40) L Hemoglobin 10.6 G/DL (12.0-16.0) L Hematocrit 33.8 % (37.0-47.0) L Mean Corpuscular Volume 96 FL (80-99) Mean Corpuscular Hemoglobin 30.3 PG (27.0-31.0) Mean Corpuscular Hemoglobin Concent 31.5 G/DL (32.0-36.0) L Red Cell Distribution Width 17.4 % (11.6-14.8) H Platelet Count 140 K/UL (150-450) L Mean Platelet Volume 6.6 FL (6.5-10.1) Neutrophils (%) (Auto) 65.1 % (45.0-75.0) Lymphocytes (%) (Auto) 19.9 % (20.0-45.0) L Monocytes (%) (Auto) 7.5 % (1.0-10.0) Eosinophils (%) (Auto) 5.5 % (0.0-3.0) H Basophils (%) (Auto) 1.9 % (0.0-2.0) Sodium Level 136 MMOL/L (136-145) Potassium Level 3.9 MMOL/L (3.5-5.1) Chloride Level 104 MMOL/L (98-107) Carbon Dioxide Level 20 MMOL/L (21-32) L Anion Gap 12 mmol/L (5-15) Blood Urea Nitrogen 18 mg/dL (7-18) Creatinine 2.7 MG/DL (0.55-1.30) H Estimat Glomerular Filtration Rate mL/min (>60) Glucose Level 106 MG/DL (74-106) Calcium Level 7.2 MG/DL (8.5-10.1) L Phosphorus Level 2.8 MG/DL (2.5-4.9) Magnesium Level 1.7 MG/DL (1.8-2.4) L Total Bilirubin 0.5 MG/DL (0.2-1.0) Aspartate Amino Transf (AST/SGOT) 23 U/L (15-37) Alanine Aminotransferase (ALT/SGPT) 10 U/L (12-78) L Alkaline Phosphatase 100 U/L (46-116) C-Reactive Protein, Quantitative 4.0 mg/dL (0.00-0.90) H Pro-B-Type Natriuretic Peptide 60399 pg/mL (0-125) H Total Protein 6.7 G/DL (6.4-8.2) Albumin 2.6 G/DL (3.4-5.0) L Globulin 4.1 g/dL Albumin/Globulin Ratio 0.6 (1.0-2.7) L Plan Problems: (1) Sacral decubitus ulcer Assessment & Plan: Pt presented on admission with non-blanching erythema without induration to sacrum. Site non-tender when palpated. R heel is boggy with non-blanching erythema. Pt complained of tenderness when palpated.(L)2cm x (W)3.5cm. L heel boggy with non-blanchable erythema with an area within base of wound of wound that is purple. Site is also tender when minimally palpated. (L)3cm x (W) 4cm. Purple/red discoloration noted to distal /lateral L foot and L 5th metatarsal. Pt complained of pain to slightest touch. Tx.Plan: Apply Cavilon Skin Barrier to both heels. Cover each heel with Optifoam drsg. Change every 7 days and prn. Apply Cavilon Skin Barrier to distal/lateral L foot/L 5th metatarsal. Cover with Optifoam drsg. Change every 7 days and prn. Apply Moisture Barrier Paste to Sacrum. Cover with Optifoam drsg. Change every 3 days and prn. Reposition at least every 2hours or as tolerated. Off-load heels with pillow. Please continue with above dressing change plans upon discharge. Outpatient follow-up with wound care team (2) Malnutrition Assessment & Plan: DAILY ESTIMATED NEEDS: Needs based on ESRD, on HD, wounds/ 47kg abw 30-35 kcals/kg 0743-6381 total kcals 1.25-1.8 g protein/kg 59-85 g total protein 20-22 mL/kg 940-1034 total fluid mLs NUTRITION DIAGNOSIS: Increased kcal/prot needs R/T ESRD as evidenced by pt HD dependent CURRENT DIET:FULL LIQUID PO DIET RECOMMENDATIONS: RENAL/ texture per ROOFER APPLICATOR ADDITIONAL RECOMMENDATIONS: * Calibrated bedscale wt for accurate CBW * Monitor lytes, replete as needed (low K, phos, and mag) * Nepro BID in b/w meals * Monitor BGs, need for carb controlled diet/ hypoglycemics * Nephrovite x 1 Chris Avila Jun 04, 2019 15:00
[2019-06-04 15:45] VITALS: BP 125/70
--- NOTE | 2019-06-04 16:12 | Cardiac Electrophysiology PN ---
Assessment/Plan Assessment/Plan 1. Status post [employer] ICD implantation at [facility] on 05/22. Patient had VT and ATP and then ICD shock 05/30/19. ICD interrogation confirmed the VT and appropriate therapy No further shock on Amiodarone 400 mg po daily 2. Coronary artery disease s/p DESx 2 in prox-mid RCA and ostial R PL placement on 05/19/19. S/P JOSE mid LAD and mid Cx on 05/17/19 No CP on aspirin, Plavix, and Toprol-XL 25 mg daily. 3. Ischemic cardiomyopathy. EF 35%. The patient is on lisinopril 20 mg daily and metoprolol as well as hemodialysis. 4. PAF .On Amiodarone 400 daily 5. End-stage renal disease, on hemodialysis. 6. Fever and sepsis. The patient is on vancomycin and Zosyn. DW RN OK to DC back to [facility] Subjective Subjective No further VT or ICD shock. DC back to [facility] pending and son and RN at bedside Objective Last 24 Hour Vital Signs Date Time Temp Pulse Resp B/P (MAP) Pulse Ox O2 Delivery O2 Flow Rate FiO2 06/04/19 15:45 125/70 06/04/19 14:58 98.4 82 18 125/70 (88) 96 06/04/19 12:00 Nasal Cannula 3.0 06/04/19 12:00 98.1 77 18 119/68 (85) 97 06/04/19 11:33 77 06/04/19 08:23 85 137/79 06/04/19 08:00 Nasal Cannula 3.0 06/04/19 08:00 98.2 85 18 137/79 (98) 100 06/04/19 07:56 88 06/04/19 05:36 136/73 06/04/19 04:00 Nasal Cannula 3.0 06/04/19 04:00 98.0 83 23 136/73 (94) 99 06/04/19 03:27 77 06/04/19 00:00 98.6 81 20 114/66 (82) 98 06/04/19 00:00 Nasal Cannula 3.0 06/03/19 23:26 77 06/03/19 22:08 120/73 06/03/19 20:50 97 143/81 06/03/19 20:18 99 Nasal Cannula 3.0 32 06/03/19 20:18 80 19 99 Nasal Cannula 3.0 32 06/03/19 20:00 98.8 98 22 143/81 (101) 98 06/03/19 20:00 Nasal Cannula 3.0 06/03/19 19:34 98 Intake and Output 06/03/19 06/04/19 19:00 07:00 Intake Total 600 ml 175 ml Output Total 550 ml 400 ml Balance 50 ml -225 ml Intake Oral 250 ml 120 ml IV Total 350 ml 55 ml Output Urine Total 550 ml 400 ml # Bowel Movements 6 3 Laboratory Tests Test 06/04/19 03:45 White Blood Count 8.3 K/UL (4.8-10.8) Red Blood Count 3.51 M/UL (4.20-5.40) L Hemoglobin 10.6 G/DL (12.0-16.0) L Hematocrit 33.8 % (37.0-47.0) L Mean Corpuscular Volume 96 FL (80-99) Mean Corpuscular Hemoglobin 30.3 PG (27.0-31.0) Mean Corpuscular Hemoglobin Concent 31.5 G/DL (32.0-36.0) L Red Cell Distribution Width 17.4 % (11.6-14.8) H Platelet Count 140 K/UL (150-450) L Mean Platelet Volume 6.6 FL (6.5-10.1) Neutrophils (%) (Auto) 65.1 % (45.0-75.0) Lymphocytes (%) (Auto) 19.9 % (20.0-45.0) L Monocytes (%) (Auto) 7.5 % (1.0-10.0) Eosinophils (%) (Auto) 5.5 % (0.0-3.0) H Basophils (%) (Auto) 1.9 % (0.0-2.0) Sodium Level 136 MMOL/L (136-145) Potassium Level 3.9 MMOL/L (3.5-5.1) Chloride Level 104 MMOL/L (98-107) Carbon Dioxide Level 20 MMOL/L (21-32) L Anion Gap 12 mmol/L (5-15) Blood Urea Nitrogen 18 mg/dL (7-18) Creatinine 2.7 MG/DL (0.55-1.30) H Estimat Glomerular Filtration Rate mL/min (>60) Glucose Level 106 MG/DL (74-106) Calcium Level 7.2 MG/DL (8.5-10.1) L Phosphorus Level 2.8 MG/DL (2.5-4.9) Magnesium Level 1.7 MG/DL (1.8-2.4) L Total Bilirubin 0.5 MG/DL (0.2-1.0) Aspartate Amino Transf (AST/SGOT) 23 U/L (15-37) Alanine Aminotransferase (ALT/SGPT) 10 U/L (12-78) L Alkaline Phosphatase 100 U/L (46-116) C-Reactive Protein, Quantitative 4.0 mg/dL (0.00-0.90) H Pro-B-Type Natriuretic Peptide 86337 pg/mL (0-125) H Total Protein 6.7 G/DL (6.4-8.2) Albumin 2.6 G/DL (3.4-5.0) L Globulin 4.1 g/dL Albumin/Globulin Ratio 0.6 (1.0-2.7) L Objective HEAD AND NECK: Positive JVD. LUNGS: Decreased breath sounds. CARDIOVASCULAR: Regular S1 and S2 with no gallop. Defibrillator is in the right subclavian and incision is intact. The Frankie catheter is in the left subclavian. ABDOMEN: Soft. EXTREMITIES: No pitting edema. Prosper Rao MD Jun 04, 2019 16:12
[2019-06-04] MEDS ORDERED: Tubing IV Secondary IV ONE (16:29)
[2019-06-04] MEDS ORDERED: NovoLOG Insulin Flexpen SUBQ SCH ×2 (16:30)
[2019-06-04] MEDS ORDERED: Calcium Acetate 667mg Tab ORAL SCH ×2 (16:30)
--- NOTE | 2019-06-04 17:59 | General Progress Note ---
Assessment/Plan Assessment/Plan: Assessment - abnormal LFT - resolved - GB sludge - resp failure - arrhythmia, s/p AICD - CAD, s/p Stent - ESRD/HD - DM - HTN Recommendations - pureed diet, Renal - aspiration precautions - push po - Periodic LFT - f/u hepatitis serologies - negative - elevate HOB Subjective Allergies: Coded Allergies: No Known Allergies (Unverified , 05/29/19) Subjective more awake family at bedside eating pureed diet Objective Last 24 Hour Vital Signs Date Time Temp Pulse Resp B/P (MAP) Pulse Ox O2 Delivery O2 Flow Rate FiO2 06/04/19 15:45 125/70 06/04/19 14:58 98.4 82 18 125/70 (88) 96 06/04/19 12:00 Nasal Cannula 3.0 06/04/19 12:00 98.1 77 18 119/68 (85) 97 06/04/19 11:33 77 06/04/19 08:23 85 137/79 06/04/19 08:00 Nasal Cannula 3.0 06/04/19 08:00 98.2 85 18 137/79 (98) 100 06/04/19 07:56 88 06/04/19 05:36 136/73 06/04/19 04:00 Nasal Cannula 3.0 06/04/19 04:00 98.0 83 23 136/73 (94) 99 06/04/19 03:27 77 06/04/19 00:00 98.6 81 20 114/66 (82) 98 06/04/19 00:00 Nasal Cannula 3.0 06/03/19 23:26 77 06/03/19 22:08 120/73 06/03/19 20:50 97 143/81 06/03/19 20:18 99 Nasal Cannula 3.0 32 06/03/19 20:18 80 19 99 Nasal Cannula 3.0 32 06/03/19 20:00 98.8 98 22 143/81 (101) 98 06/03/19 20:00 Nasal Cannula 3.0 06/03/19 19:34 98 Intake and Output 06/03/19 06/04/19 19:00 07:00 Intake Total 600 ml 175 ml Output Total 550 ml 400 ml Balance 50 ml -225 ml Intake Oral 250 ml 120 ml IV Total 350 ml 55 ml Output Urine Total 550 ml 400 ml # Bowel Movements 6 3 Laboratory Tests 06/04/19 03:45: White Blood Count 8.3, Red Blood Count 3.51L, Hemoglobin 10.6L, Hematocrit 33.8L , Mean Corpuscular Volume 96, Mean Corpuscular Hemoglobin 30.3, Mean Corpuscular Hemoglobin Concent 31.5L, Red Cell Distribution Width 17.4H, Platelet Count 140L, Mean Platelet Volume 6.6, Neutrophils (%) (Auto) 65.1, Lymphocytes (%) (Auto) 19.9L, Monocytes (%) (Auto) 7.5, Eosinophils (%) (Auto) 5.5H, Basophils (%) (Auto) 1.9, Sodium Level 136, Potassium Level 3.9, Chloride Level 104, Carbon Dioxide Level 20L, Anion Gap 12, Blood Urea Nitrogen 18, Creatinine 2.7H, Estimat Glomerular Filtration Rate , Glucose Level 106, Calcium Level 7.2L, Phosphorus Level 2.8, Magnesium Level 1.7L, Total Bilirubin 0.5, Aspartate Amino Transf (AST/SGOT) 23, Alanine Aminotransferase (ALT/SGPT) 10L, Alkaline Phosphatase 100, C-Reactive Protein, Quantitative 4.0H, Pro-B- Type Natriuretic Peptide 13042R, Total Protein 6.7, Albumin 2.6L, Globulin 4.1, Albumin/Globulin Ratio 0.6L Height (Feet): 4 Height (Inches): 10.00 Weight (Pounds): 129 Objective Elderly woman NCAT supple CTA RR abd soft ND no edema Susan Malone MD Jun 04, 2019 17:59
[2019-06-04] MEDS ORDERED: Docusate 100mg cap ORAL SCH ×2 (18:00)
[2019-06-04] MEDS ORDERED: Dyna-Hex 2% Top Sol 2oz TOPIC SCH ×2 (20:00)
[2019-06-04] MEDS ORDERED: Betadine 4oz Bottle TOPIC SCH ×2 (21:00)
[2019-06-04] MEDS ORDERED: Vitamin A&D Oint Tube TOPIC SCH ×2 (21:00)
[2019-06-04] MEDS ORDERED: Carvedilol 25mg Tab ORAL SCH ×2 (21:00)
[2019-06-04] MEDS ORDERED: Zolpidem 5mg tab ORAL PRN ×2 (21:00)
[2019-06-05] MEDS ORDERED: Amiodarone 200mg tab ORAL SCH ×2 (09:00)
--- NOTE | 2019-06-05 10:14 | Discharge Summary ---
Discharge Summary Discharge Summary _ DATE OF ADMISSION: 05/29/1919 DATE OF DISCHARGE: 06/04/1990 DISCHARGED BY: Dr. Martinez REASON FOR ADMISSION: 83 years old female, with past medical history of end-stage renal disease, on hemodialysis, AICD, history of coronary artery disease , s/p stent placement, congestive heart failure, hypertension, COPD, diabetes mellitus type 2, resident of residential facility, was sent for evaluation due to difficulty breathing. Patient started on the CPAP by EMS during the transport. Patient was noted to be febrile. Patient had a recent hospitalization at [facility] with AICD placement about a week ago. Patient was on amiodarone and on Plavix due to recent procedure. Upon evaluation vital signs reveal elevated blood pressure 164/92 , pulse oximetry was 94% on BiPAP with FiO2 of 60%. ABG on BiPAP 12/5 with FiO2 of 60% were stable. Potassium 6.0. BUN 20, creatinine 2.2. Glucose 190. AST 104, ALT 14 , alkaline phosphatase 157. Pro BNP > 35,000. Albumin 3.0. Lactic acid 4.1. repeated 2.3. Troponin - 0.006. Urinalysis revealed pyuria and few bacteria, +2 protein. WBC 17.8, hemoglobin and hematocrit stable. Chest x-ray demonstrated bilateral interstitial and airspace infiltrates versus edema. Suspected bilateral pleural effusion. Abdominal ultrasound demonstrated gallbladder sludge, but was negative for gallstones or dilated ducts. Bilateral atrophic echogenic kidneys, consistent with medical renal disease. In the emergency department patient received IV antibiotic , continued on BiPAP and subsequently admitted to monitored floor for further management. CONSULTANTS: health and safety coordinator Dr. Yin pulmonary Dr. Nettles ID specialist Dr. Garcia GI specialist Dr. Knott grocery department manager . Dr. Rosales surgery [facility] COURSE: Patient admitted to monitored floor. Patient continued on BiPAP. Settings titrated to keep pulse oximetry above 92%. Bronchodilator therapy provided. Bead Preparer followed. Venous duplex bilateral lower extremity revealed no evidence of acute DVT. Echocardiogram revealed akinetic and thin mid to distal septum and apex and distal lateral wall and distal posterior and inferior gallardo. Left ventricular ejection fraction estimated to be 30 to 35%. Right ventricular systolic pressure of 38 consistent with mild pulmonary hypertension. Repeated troponin was negative as well. Lipid panel was stable. Dual antiplatelet therapy with aspirin and Plavix continued. Beta blockage provided with Toprol-XL 25 mg daily. Guideline directed medical therapy for congestive heart failure provided with beta-josé miguel, JASON inhibitor, and hemodialysis. Amiodarone was continued for paroxysmal atrial fibrillation. Blood pressure was managed with beta-josé miguel, JASON inhibitor, and hydralazine. Patient had evidence of VT and ATP and then ICD shock on 05/30. ICD interrogation confirmed VT and appropriate therapy. No further shock on amiodarone. Hemodialysis with ultrafiltration provided. Patient initially presented with fluid overload. Patient improved with BiPAP and hemodialysis with ultrafiltration and was able to be weaned from the BiPAP. Prior to discharge pulse oximetry was stable on 3 L of oxygen via nasal cannula. ID specialist followed. Blood culture revealed Staph coagulase negative 08/11. Urine culture was negative. Leukocytosis resolved , no further fevers. Patient completed antibiotic treatment for possible pneumonia while in the hospital. Positive blood culture were likely contaminated, as per ID specialist. [employer] followed. Hemodialysis was continued with ultrafiltration. Patient started on Zaroxolyn, spot doses. Renal parameters and electrolytes were closely monitor , electrolytes corrected as needed. Potassium , phosphorus and magnesium were supplemented. Patient started on calcium supplement with vitamin D. Patient has grocery department manager , that follow her at the residential [facility]. Surgeon followed. Patient with sacral decubitus ulcer, present on admission. Wound care provided as per surgeon recommendation . GI specialist followed. Patient had abnormal LFT initially. LFT were trending Hepatitis panel was negative. AST down to normal , ALT remained stable. GI prophylaxis provided. Bowel regimen instituted. Supportive care provided. Diet provided as per speech therapist recommendation with strict aspiration/ reflux precautions. Protein supplements implemented in plan of care as per hospice registered nurse recommendation. Blood sugar was managed with sliding scale of insulin. Patient clinically stabilized and was ready for transfer back to residential [facility] for continuation of care. FINAL DIAGNOSES: Acute hypoxemic respiratory failure CHF with systolic dysfunction Pulmonary edema Fluid overload Possible sepsis Possible pneumonia Coronary artery disease , status post recent multiple stents placement Ischemic cardiomyopathy with ejection fraction 35% Status post recent [employer] ICD implantation on 05/22 Episode of VT and ATP and an ICD shock on Paroxysmal atrial fibrillation End-stage renal disease, on hemodialysis Lactic acidosis Abnormal LFT- resolved Gallbladder sludge Diabetes mellitus type 2 Sacral decubitus ulcer , present on admission Protein calorie malnutrition DISCHARGE MEDICATIONS: See Medication Reconciliation list. DISCHARGE INSTRUCTIONS: Patient was discharged to the residential facility. Follow up with medical doctor at the facility. I have been assigned to dictate discharge summary for this account. I was not involved in the patient's management. Marisa Chapa NP Jun 05, 2019 10:14
--- NOTE | 2019-06-05 13:41 | Diagnostic Imaging Report ---
APPROVED REPORT CPT Code: 65791 Present Symptoms Shortness of breath BILATERAL: Imaging reveals a patent deep venous system bilaterally. There is no evidence of thrombus within the common femoral, superficial femoral, popliteal or tibial segments. The greater saphenous veins are within normal limits. Doppler indicates normal spontaneous flow within these segments.
--- NOTE | 2019-06-06 15:13 | NUR ---
*-* INSURANCE *-* DISCHARGE SUMMARY HAS BEEN FAXED TO [place] Tr[employer]#[id number] KAVEH; Carolann #[phone]
[2019-06-10] MEDS ORDERED: Vitamin D 50,000 units cap ORAL SCH ×2 (12:00)
== END 2019-06-04 16:30 | DRG 871 ==
LOC: EDBD 03:21 → EMR 04:04 → 2W 04:33 → EDBEDREQ 06:23 → 2E 06-04 13:10
PROC: 5A1D70Z Performance of Urinary Filtration, Intermittent, Less than 6 Hours Per Day (ICD-10-PCS; principal; 2019-05-31)
DX: A41.9 Sepsis, unspecified organism (principal); J18.9 Pneumonia, unspecified organism; N18.6 End stage renal disease; I50.23 Acute on chronic systolic (congestive) heart failure; J96.01 Acute respiratory failure with hypoxia; I13.2 Hypertensive heart and chronic kidney disease with heart failure and with stage 5 chronic kidney disease, or end stage renal disease; E46 Unspecified protein-calorie malnutrition; I47.2 Ventricular tachycardia; Z95.810 Presence of automatic (implantable) cardiac defibrillator; I25.10 Atherosclerotic heart disease of native coronary artery without angina pectoris; R33.9 Retention of urine, unspecified; E87.5 Hyperkalemia; E87.70 Fluid overload, unspecified; Z95.5 Presence of coronary angioplasty implant and graft; F03.90 Unspecified dementia, unspecified severity, without behavioral disturbance, psychotic disturbance, mood disturbance, and anxiety; E78.5 Hyperlipidemia, unspecified; L89.159 Pressure ulcer of sacral region, unspecified stage; Z68.27 Body mass index [BMI] 27.0-27.9, adult; I48.0 Paroxysmal atrial fibrillation
CPT/HCPCS: 36415; 36600; 71045; 76700; 80053; 80061; 80202; 81001; 82140; 82248; 82550; 82553; 82607; 82728; 82746; 82803; 82962; 82977; 83036; 83540; 83550; 83605; 83735; 83880; 84100; 84484; 84550; 85025; 86140; 86705; 86709; 86803; 87040; 87081; 87086; 87181; 87340; 93005; 93306; 93970; 94664; 96365; 99285; A4246; J1815